=== PATIENT | female | born 1970 | race African-American/Black ===

== ENCOUNTER → 2022-07-08 14:46 | Outpatient (BNVA) | payer MEDICARE, MEDICAID, SELFPAY | PROVIDERS: PCP Internal Medicine; Visit Provider Physician Assistant Surgical | DX: Z13.89 Encounter for screening for other disorder (principal) ==

== ENCOUNTER → 2022-08-03 11:07 | Outpatient (BNVA) | payer OTHER, SELFPAY | PROVIDERS: PCP Internal Medicine; Referring Provider Internal Medicine; Visit Provider Physician Assistant Surgical | DX: Z13.89 Encounter for screening for other disorder (principal) ==

== ENCOUNTER 2025-03-10 09:45 | Outpatient (AMB) | payer OTHER, SELFPAY ==
--- OUTSIDE RECORDS SUMMARY | 2007-08-08 01:00 | XMS_ITS | Encounter Summary ---
Author Organization [facility] Address [address] [place] [address] [place] [address] Phone Care Team Providers Care Auto Bench Mechanic Name Role Phone Unavailable Primary Care Provider Unavailabl e Encounter Details Date Type Department Care Team (Late st Contact Info) Description 08/08/2007 Hospital Encounter [facility] 55 [place] [address] Vilma Lentz MD, PhD 55 [facility] 9[place] [address] [email or web address] Social History Tobacco Use Types Packs/Day Years Used Date Smoking Tobacco: Never Smokeless Tobacco: Never Alcohol Use Standard Drinks/Week Comments Yes 0 (1 standard drink = 0.6 oz pure alcohol) rare; less than 1 drink per month Education Answer Date Recorded Are you interested in more education? Not on veronica e 10/14/2022 Are you concerned about learning? Not on file 10/14/2022 No 10/14/2022 No 10/14/2022 Digital Access Answer Date Recorded No 11/12/2022 No 11/12/2022 Reliable internet access at home? Not on file 11/12/2022 Device with a working camera? Not on file Comments No Sex and Gender Information Value Date Recorded Sex Assigned at Not on file Legal Sex Female 9:59 AM EDT Gender Identity Not on file Sexual Orientation Not on file documented as of this encounter Plan of Treatment Upcoming Encounters Date Type Department Care Team (Late st Contact Info) Description 12/24/2024 Procedure Pass MRI, [facility] [address] [place] [address] 03/17/2025 12:45 PM EDT Appointment MRI, [facility] [address] [place] [address] Bhargav Naik MBBS [address] [place] [address] [email or web address] 03/17/2025 1:30 PM EDT Blood Draw [facility] [address] [facility], 9th Floor, [address] [place] [address] Annamaria Hutchinson FNP [address] [place] [address] [address] [place] [address] [email or web address] 03/17/2025 2:00 PM EDT Office Visit [facility] [address] [facility], 9th Floor, [address] [place] [address] Vilma Lentz MD, PhD [address] [place] [address] 9[place], [place] [address] [email or web address] 04/16/2025 10:00 AM EDT Office Visit [facility] Department of Neurology [address] [place] [address], 8th Floor, [address] [place] [address] Seth Ross MD [address] [place] [address] [place] [address] [email or web address] documented as of this encounter Procedures Procedure Name Priority Date/Time Associated Diagnosis Comments CT HEAD OUTSIDE (NO INTERPRETATION) Routine 08/08/2007 12:00 AM EST documented in this encounter Results * CT Head Outside (No Interpretation) (08/08/2007 12:00 AM EST) Narrative [facility] IMG INTERFACES - 10/16/2015 12:54 PM EDT This study is for PACS storage only and not for interpretation. Procedure Note SYSTEMGENERATED, DOCUMENTATION - 10/16/2015 This study is for PACS storage only and not for interpretation. us Vilma Lentz MD, PhD IMG OU TSIDE IMAGING W/OUT INTERPRETATION Final Result [facility] IMG INTERFACES documented in this encounter Visit Diagnoses Not on filedocumented in this encounter Additional Source Comments The information contained in this document represents components of the legal health record. It is not the complete legal health record.[facility]
--- OUTSIDE RECORDS SUMMARY | 2011-07-18 01:00 | XMS_ITS | Encounter Summary ---
Author Organization [facility] Address [address] [place] [address] Phone Care Team Providers Care Shuttler Car Name Role Phone Unavailable Primary Care Provider Unavailabl e Encounter Details Date Type Department Care Team (Late st Contact Info) Description 07/18/2011 Hospital Encounter [facility] 55 [place] [address] Vilma Lentz MD, PhD [address] [address] [email or web address] Social History Tobacco Use Types Packs/Day Years [...] [address] [place] [address] 03/17/2025 12:45 PM EDT Appointment MRI, [facility] [address] [place] [address] Bhargav Naik MBBS [address] [place] [address] [email or web address] 03/17/2025 1:30 PM EDT Blood Draw [facility] [address] [facility], 9th Floor, [address] [place] [address] Annamaria Hutchinson FNP [address] [place] [address] [address] [place] [address] [email or web address] 03/17/2025 2:00 PM EDT Office Visit [facility] [address] [facility], 9th Floor, [address] [place] [address] Vilma Lentz MD, PhD [address] [place] [address] 9[place], [place] [address] [email or web address] 04/16/2025 10:00 AM EDT Office [place] [facility] Department of Neurology [address] [place] [address], 8th Floor, [address] [place] [address] Seth Ross MD [address] [place] [address] [place] [address] [email or web address] documented as of this encounter Procedures Procedure Name Priority Date/Time Associated Diagnosis Comments XR CHEST OUTSIDE (NO INTERPRETATION) Routine 07/18/2011 12:00 AM EST documented in this encounter Results * XR Chest Outside (No Interpretation) (07/18/2011 12:00 AM EST) Narrative [facility] [place]G INTERFACES - 10/16/2015 12:55 PM EDT This study is for PACS storage only and not for interpretation. Procedure Note SYSTEMGENERATED, DOCUMENTATION - 10/16/2015 This study is for PACS storage only and not for interpretation. us Vilma Lentz MD, PhD IMG OU TSIDE IMAGING W/OUT INTERPRETATION Final Result [facility] documented in this encounter Visit Diagnoses Not on filedocumented in this encounter Additional Source Comments The information contained in this document represents components of the legal health record. It is not the complete legal health record.[facility]
--- OUTSIDE RECORDS SUMMARY | 2012-04-07 | XMS_ITS | Encounter Summary ---
Author Organization [facility] Address [address] [place] [address] [place] [address] Phone Care Team Providers Care Lead Systems Developer Name Role Phone Unavailable Primary Care Provider Unavailabl e Encounter Details Date Type Department Care Team (Late st Contact Info) Description 04/07/2012 Hospital Encounter [facility] 55 [place] [address] Vilma Lentz MD, PhD 55 [facility] 9[place] [address] [email or web address] Social History Tobacco Use Types Packs/Day [...] [address] [place] [address] 03/17/2025 12:45 PM EDT Appointment MRI, [facility] [address] [place] [address] Bhargav Naik MBBS [address] [place] [address] [email or web address] 03/17/2025 1:30 PM EDT Blood Draw [facility] [address] [facility], 9th Floor, [address] [place] [address] Annamaria Hutchinson FNP [address] [place] [address] [address] [place] [address] [email or web address] 03/17/2025 2:00 PM EDT Office Visit [facility] [address] [facility], 9th Floor, [address] [place] [address] Vilma Lentz MD, PhD [address] [place] [address] [place], [place] [address] [email or web address] 04/16/2025 10:00 AM EDT Office Visit [facility] Department of Neurology [address] [place] [address], 8th Floor, [address] [place] [address] Seth Ross MD [address] [place] [address] [place] [address] [email or web address] documented as of this encounter Procedures Procedure Name Priority Date/Time Associated Diagnosis Comments CT CHEST OUTSIDE (NO INTERPRETATION) Routine 04/07/2012 12:00 AM EDT documented in this encounter Results * CT Chest Outside (No Interpretation) (04/07/2012 12:00 AM EDT) Narrative [facility] [place]G INTERFACES - 10/16/2015 12:56 PM EDT This study is for PACS storage only and not for interpretation. Procedure Note SYSTEMGENERATED, DOCUMENTATION - 10/16/2015 This study is for PACS storage only and not for interpretation. us Vilma Lentz MD, PhD IMG OU TSIDE IMAGING W/OUT INTERPRETATION Final Result [facility] documented in this encounter Visit Diagnoses Not on filedocumented in this encounter Additional Source Comments The information contained in this document represents components of the legal health record. It is not the complete legal health record.[facility]
--- OUTSIDE RECORDS SUMMARY | 2013-10-15 | XMS_ITS | Encounter Summary ---
Author Organization [facility] Address [address] [place] [address] [place] [address] Phone Care Team Providers Care Can Labeler Name Role Phone Unavailable Primary Care Provider Unavailabl e Encounter Details Date Type Department Care Team (Late st Contact Info) Description 10/15/2013 Hospital Encounter [facility] 55 [place] [address] Vilma Lentz MD, PhD 55 [facility] 9[place] [address] [email or web address] Social History Tobacco Use Types [...] [address] [place] [address] 03/17/2025 12:45 PM EDT Appointment MRI, [facility] [address] [place] [address] Bhargav Naik MBBS [address] [place] [address] [email or web address] 03/17/2025 1:30 PM EDT Blood Draw [facility] [address] [facility], 9th Floor, [address] [place] [address] Annamaria Hutchinson FNP [address] [place] [address] [address] [place] [address] [email or web address] 03/17/2025 2:00 PM EDT Office Visit [facility] [address] [facility], 9th Floor, [address] [place] [address] Vilma Lentz MD, PhD [address] [place] [address] 9[place] [address] [email or web address] 04/16/2025 10:00 AM EDT Office Visit [facility] Department of Neurology [address] [place] [address], 8th Floor, [address] [place] [address] Seth Ross MD [address] [place] [address] [place] [address] [email or web address] documented as of this encounter Procedures Procedure Name Priority Date/Time Associated Diagnosis Comments XR CHEST OUTSIDE (NO INTERPRETATION) Routine 10/15/2013 12:00 AM EDT documented in this encounter Results * XR Chest Outside (No Interpretation) (10/15/2013 12:00 AM EDT) Narrative [facility] IMG INTERFACES - 10/16/2015 12:57 PM EDT This study is for PACS storage only and not for interpretation. Procedure Note SYSTEMGENERATED, DOCUMENTATION - 10/16/2015 This study is for PACS storage only and not for interpretation. us Vilma Lentz MD, PhD IMG OU TSIDE IMAGING W/OUT INTERPRETATION Final Result [facility] INTER[facility]AC[facility] documented in this encounter Visit Diagnoses Not on filedocumented in this encounter Additional Source Comments The information contained in this document represents components of the legal health record. It is not the complete legal health record.[facility]
--- OUTSIDE RECORDS SUMMARY | 2013-10-23 | XMS_ITS | Encounter Summary ---
Author Organization [facility] Address [address] [place] [address] [place] [address] Phone Care Team Providers Care Roll Cutting Operator Name Role Phone Unavailable Primary Care Provider Unavailabl e Encounter Details Date Type Department Care Team (Late st Contact Info) Description 10/23/2013 Hospital Encounter [facility] 55 [place] [address] Vilma Lentz MD, PhD 55 [facility] 9[place] [address] [email or web address] [place] [place] Social History Tobacco Use Types Packs/Day Years [...] [address] [place] [address] 03/17/2025 12:45 PM EDT Appointment MRI, [facility] General Imaging [address] [place] [address] Bhargav Naik MBBS [address] [place] [address] [email or web address] 03/17/2025 1:30 PM EDT Blood Draw [facility] [address] [facility], 9th Floor, [address] [place] [address] Annamaria Hutchinson FNP [address] [place] [address] [address] [place] [address] [email or web address] 03/17/2025 2:00 PM EDT Office Visit [facility] [address] [facility], 9th Floor, [address] [place] [address] Vilma Lentz MD, PhD [address] [place] [address] 9[address] [place] [address] [email or web address] [place] 04/16/2025 10:00 AM EDT Office Visit [facility] Department of Neurology [address] [place] [address], 8th Floor, [address] [place] [address] Seth Ross MD [address] [place] [address] [place] [address] [email or web address]@[email or web address] documented as of this encounter Procedures Procedure Name Priority Date/Time Associated Diagnosis Comments US UPPER/LOWER EXTREMITY NON-VASCULAR OUTSIDE (NO INTERPRETATION) Routine 10/23/2013 12:00 AM EDT documented in this encounter Results * US Upper/Lower Extremity Non-Vascular Outside (No Interpretation) (10/23/2013 12:00 AM EDT) Narrative [facility] IMG INTERFACES - 10/16/2015 12:57 PM EDT This study is for PACS storage only and not for interpretation. Procedure Note SYSTEMGENERATED, DOCUMENTATION - 10/16/2015 This study is for PACS storage only and not for interpretation. us Vilma Lentz MD, PhD IMG OU TSIDE IMAGING W/OUT INTERPRETATION Final Result [facility] IMG INTERFACES documented in this encounter Visit Diagnoses Not on filedocumented in this encounter Additional Source Comments The information contained in this document represents components of the legal health record. It is not the complete legal health record.[facility]
--- OUTSIDE RECORDS SUMMARY | 2015-08-18 01:00 | XMS_ITS | Encounter Summary ---
Author Organization [facility] Address [address] [place] [address] Phone Care Team Providers Care Salt Manager Name Role Phone Unavailable Primary Care Provider Unavailabl e Encounter Details Date Type Department Care Team (Late st Contact Info) Description 08/18/2015 Hospital Encounter [facility] 55 [place] [address] Vilma Lentz MD, PhD 55 [facility] 9[place] [address] [email or web address] Social History Tobacco Use Types Packs/Day Years [...] [address] [place] [address] 03/17/2025 12:45 PM EDT Appointment MRI, [facility] [address] [place] [address] Bhargav Naik MBBS [address] [place] [address] [email or web address] 03/17/2025 1:30 PM EDT Blood Draw [facility] [address] [facility], 9th Floor, [address] [place] [address] Annamaria Hutchinson FNP [address] [place] [address] [address] [place] [address] [email or web address] 03/17/2025 2:00 PM EDT Office Visit [facility] [address] [facility], 9th Floor, [address] [place] [address] Vilma Lentz MD, PhD [address] [place] [address] [place] [address] [email or web address] 04/16/2025 10:00 AM EDT Office Visit [facility] Department of Neurology [address] [place] [address], 8th Floor, [address] [place] [address] Seth Ross MD [address] [place] [address] [place] [address] [email or web address] documented as of this encounter Procedures Procedure Name Priority Date/Time Associated Diagnosis Comments CT HEAD OUTSIDE (NO INTERPRETATION) Routine 08/18/2015 12:00 AM EST documented in this encounter Results * CT Head Outside (No Interpretation) (08/18/2015 12:00 AM EST) Narrative [facility] IMG INTERFACES - 10/16/2015 12:58 PM EDT This study is for PACS storage only and not for interpretation. Procedure Note SYSTEMGENERATED, DOCUMENTATION - 10/16/2015 This study is for PACS storage only and not for interpretation. us Vilma Lentz MD, PhD IMG OU TSIDE IMAGING W/OUT INTERPRETATION Final Result [facility] IMG INTERFACES documented in this encounter Visit Diagnoses Not on filedocumented in this encounter Additional Source Comments The information contained in this document represents components of the legal health record. It is not the complete legal health record.[facility]
--- OUTSIDE RECORDS SUMMARY | 2015-08-20 01:00 | XMS_ITS | Encounter Summary ---
Author Organization [facility] Address [address] [place] [address] Phone Care Team Providers Care Flume Ride Operator Name Role Phone Unavailable Primary Care Provider Unavailabl e Encounter Details Date Type Department Care Team (Late st Contact Info) Description 08/20/2015 Hospital Encounter [facility] 55 [place] [address] Vilma Lentz MD, PhD 55 [facility] 9[place] [address] [email or web address] Social History Tobacco Use Types [...] [address] [place] [address] 03/17/2025 12:45 PM EDT Appointment MRI, [facility] [address] [place] [address] Bhargav Naik MBBS [address] [place] [address] [email or web address] 03/17/2025 1:30 PM EDT Blood Draw [facility] [address] [facility], 9th Floor, [address] [place] [address] Annamaria Hutchinson FNP [address] [place] [address] [address] [place] [address] [email or web address] 03/17/2025 2:00 PM EDT Office Visit [facility] [address] [facility], 9th Floor, [address] [place] [address] Vilma Lentz MD, PhD [address] [place] [address] [place] [address] [email or web address] 04/16/2025 10:00 AM EDT Office Visit [facility] Department of Neurology [address] [place] [address], 8th Floor, [address] [place] [address] Seth Ross MD [address] [place] [address] [place] [address] [email or web address] documented as of this encounter Procedures Procedure Name Priority Date/Time Associated Diagnosis Comments MRI BRAIN OUTSIDE (NO INTERPRETATION) Routine 08/20/2015 12:00 AM EST documented in this encounter Results * MRI Brain Outside (No Interpretation) (08/20/2015 12:00 AM EST) Narrative [facility] IMG INTERFACES - 10/16/2015 12:59 PM EDT This study is for PACS storage only and not for interpretation. Procedure Note SYSTEMGENERATED, DOCUMENTATION - 10/16/2015 This study is for PACS storage only and not for interpretation. us Vilma Lentz MD, PhD IMG OU TSIDE IMAGING W/OUT INTERPRETATION Final Result [facility]G INTERFACES documented in this encounter Visit Diagnoses Not on filedocumented in this encounter Additional Source Comments The information contained in this document represents components of the legal health record. It is not the complete legal health record.[facility]
--- OUTSIDE RECORDS SUMMARY | 2015-09-03 | XMS_ITS | Encounter Summary ---
Author Organization [facility] Address [address] [place] [address] Phone Care Team Providers Care Zinc Etcher Name Role Phone Unavailable Primary Care Provider Unavailabl e Encounter Details Date Type Department Care Team (Late st Contact Info) Description 09/03/2015 Hospital Encounter [facility] 55 [place] [address] Vilma Lentz MD, PhD 55 [facility] 9[place], [place] [address] [email or web address] Social History Tobacco Use Types [...] [address] [place] [address] 03/17/2025 12:45 PM EDT Appointment MRI, [facility] [address] [place] [address] Bhargav Naik MBBS [address] [place] [address] [email or web address] 03/17/2025 1:30 PM EDT Blood Draw [facility] 32 [facility], 9th Floor, [address] [place] [address] Annamaria Hutchinson FNP [address] [place] [address] [address] [place] [address] [email or web address] 03/17/2025 2:00 PM EDT Office Visit [facility] [place] [facility] 32 [facility], 9th Floor, [address] [place] [address] Vilma Lentz MD, PhD [address] [place] [address] 9[place], [place] [address] [email or web address] 04/16/2025 10:00 AM EDT Office Visit [facility] Department of Neurology [address] [place] [address], 8th Floor, [address] [place] [address] Seth Ross MD [address] [place] [address] [place] [address] [email or web address] documented as of this encounter Procedures Procedure Name Priority Date/Time Associated Diagnosis Comments MRI BRAIN OUTSIDE (NO INTERPRETATION) Routine 09/03/2015 12:00 AM EDT documented in this encounter Results * MRI Brain Outside (No Interpretation) (09/03/2015 12:00 AM EDT) Narrative [facility]G INTERFACES - 10/16/2015 12:59 PM EDT This study is for PACS storage only and not for interpretation. Procedure Note SYSTEMGENERATED, DOCUMENTATION - 10/16/2015 This study is for PACS storage only and not for interpretation. us Vilma Lentz MD, PhD IMG OU TSIDE IMAGING W/OUT INTERPRETATION Final Result [facility]G INTERFACES documented in this encounter Visit Diagnoses Not on filedocumented in this encounter Additional Source Comments The information contained in this document represents components of the legal health record. It is not the complete legal health record.[facility]
--- OUTSIDE RECORDS SUMMARY | 2015-12-05 | XMS_ITS | Encounter Summary ---
Author Organization [facility] Address [address] [place] [address] [place] [address] Phone Care Team Providers Care Oxyacetylene Welder Name Role Phone Herlinda Bha Primary Care Provider [phone] Encounter Details Date Type Department Care Team (Late st Contact Info) Description 12/05/2015 Hospital Encounter [facility] General Imaging [address] [place] [address] Nery Renteria MD [address] [place] [address] Social History Tobacco Use Types Packs/Day Years [...] on file documented as of this encounter Functional Status * Patient is deaf or has serious difficulty with hearing Answer Date of Assessment Author No 11/26/2015 11:15 AM Jaz Arteaga CNP * Patient is blind or has serious difficulty with seeing, even when wearing glasses Answer Date of Assessment Author No 11/26/2015 11:15 AM Jaz Arteaga CNP * Patient has serious difficulty walking or climbing stairs (5yr old or older) Answer Date of Assessment Author No 11/26/2015 11:15 AM Jaz Arteaga CNP * Patient has serious difficulty dressing or bathing (5yr old or older) Answer Date of Assessment Author No 11/26/2015 11:15 AM Jaz Arteaga CNP * Patient has serious difficulty doing errands alone such as visiting a doctor???s office or shopping, due to physical, mental, or emotional condition (15 years old or older) Answer Date of Assessment Author No 11/26/2015 11:15 AM Jaz Arteaga CNP documented as of this encounter Mental Status * Patient has serious difficulty concentrating, remembering, or making decisions due to physical, mental, or emotional condition Answer Entry Date Author No 11/26/2015 11:15 AM Jaz Arteaga CNP documented in this encounter Plan of Treatment Upcoming Encounters Date Type Department Care Team (Late st Contact Info) Description 12/24/2024 Procedure Pass [facility], [facility] [address] [place] [address] 03/17/2025 12:45 PM EDT Appointment MRI, [facility] General Imaging [address] [place] [address] Bhargav Naik MBBS [address] [place] [address] [email or web address] 03/17/2025 1:30 PM EDT Blood Draw [facility] [address] [facility], 9th Floor, [address] [place] [address] Annamaria Hutchinson FNP 55 [facility] [address] [place] [address] 03/17/2025 2:00 PM EDT Office Visit [facility] [address] [facility], 9th Floor, [address] [place] [address] Vilma Lentz MD, PhD 55 [facility] [address] [place] [address] [email or web address] 04/16/2025 10:00 AM EDT Office Visit [facility] Department of Neurology [address] [facility], 8th Floor, [address] [place] [address] Seth [place] MD 55 [facility] [place] [address] [email or web address] documented as of this encounter Procedures Procedure Name Priority Date/Time Associated Diagnosis Comments CT HEAD OUTSIDE WITH INTERPRETATION OR CONSULT Routine 12/05/2015 12:00 AM EDT documented in this encounter Results * CT Head Outside With Interpretation or Consult (12/05/2015 12:00 AM EDT) 12/05/2015 10:5 4 PM EDT Impressions [facility] - 12/06/2015 10:12 AM EDT IMPRESSION: Expected evolution of postoperative findings related to left frontal craniotomy and resection of left frontal lobe mass lesion. No evidence of acute intracranial hemorrhage, increased mass effect or territorial infarction. Preliminary findings were discussed with Dr. Juan Jose Collado on 12/05/2015 at 11:08PM This report is limited to the body part and modality requested, regardless of which images were uploaded. If additional reports are required, please contact the appropriate division of the Radiology Department. Narrative [facility] - 12/06/2015 10:12 AM EDT Interpretation of outside CT scan performed at [facility] TECHNIQUE: Head CT WITHOUT intravenous contrast. COMPARISON: Outside brain MR 09/03/2015; multiple prior head CT examinations including most recent on 12/02/2015 FINDINGS: There are expected postoperative findings related to left frontal craniotomy for resection of left frontal mass lesion seen on the brain MRI on 09/03/2015. There is persistent focal hypodensity within the resection cavity likely representing fluid. Evaluation of the brain parenchyma is limited by CT. There has been no significant interval change in the appearance of scattered foci of hyperdensity along the margins of the resection cavity, which may represent blood products. No evidence of acute intracranial hemorrhage, increased mass effect or midline shift. The ventricles, sulci and cisterns are stable in appearance without evidence of progressive hydrocephalus. The brain parenchyma demonstrates no significant abnormality. The bones and extracranial soft tissues demonstrate expected postoperative findings. There has been no significant interval change in the size of the left frontal subgaleal collection. There is a persistent subcutaneous air overlying the medial aspect of the craniotomy site, slightly decreased when compared to 12/02/2015. Procedure Note Carlo Macias MD, PhD - 12/06/[address] scan performed at [facility] TECHNIQUE: Head CT WITHOUT intravenous contrast. COMPARISON: Outside brain MR 09/03/2015; multiple prior head CTexaminations including most recent on 12/02/2015 FINDINGS: There are expected postoperative findings related to left frontalcraniotomy for resection of left frontal mass lesion seen on the brain MRI on 09/03/2015.There is persistent focal hypodensity within the resection cavity likelyrepresenting fluid. Evaluation of the brain parenchyma is limited by CT. There has beenno significant interval change in the appearance of scattered foci ofhyperdensity along the margins of the resection cavity, which may represent bloodproducts. No evidence of acute intracranial hemorrhage, increased mass effect ormidline shift. The ventricles, sulci and cisterns are stable in appearance withoutevidence of progressive hydrocephalus. The brain parenchyma demonstrates no significant abnormality. The bones and extracranial soft tissues demonstrate expectedpostoperative findings. There has been no significant interval change in the size of theleft frontal subgaleal collection. There is a persistent subcutaneous airoverlying the medial aspect of the craniotomy site, slightly decreased when comparedto 12/02/2015. IMPRESSION: IMPRESSION: Expected evolution of postoperative findings related to left frontalcraniotomy and resection of left frontal lobe mass lesion. No evidence of acute intracranial hemorrhage, increased mass effect or territorial infarction. Preliminary findings were discussed with Dr. Juan Jose Collado on 12/05/2015 at11:08PM This report is limited to the body part and modality requested, regardlessof which images were uploaded. If additional reports are required, pleasecontact the appropriate division of the Radiology Department. us Nery Renteria MD IMG OUTSIDE IMAGING W/ INTERPR ETATION Final Result [facility] [address] [place] [address] documented in this encounter Visit Diagnoses Not on filedocumented in this encounter Care Teams Oxyacetylene Welder Relationship Specialty Start Date End Date Herlinda Bah DO [address] [place] [address] PCP - General 10/16/15 12/18/16 documented as of this encounter Additional Source Comments The information contained in this document represents components of the legal health record. It is not the complete legal health record.[facility]
--- OUTSIDE RECORDS SUMMARY | 2016-02-10 | XMS_ITS | Encounter Summary ---
Author Organization [facility] Address [address] [place] [address] [place] [address] Phone Care Team Providers Care Triage Rn Name Role Phone NiurkaHerlinda Primary Care Provider [phone] Encounter Details Date Type Department Care Team (Late st Contact Info) Description 02/10/2016 Hospital Encounter [facility] [address] [place] [address] Fani Llamas MD 55 [place] [address] [email or web address]. u Social History Tobacco Use Types Packs/Day Years [...] Contact Info) Description 12/24/2024 Procedure Pass MRI, [facility] General Imaging [address] [place] [address] 03/17/2025 12:45 PM EDT Appointment MRI, [facility] General Imaging [address] [place] [address] Bhargav Naik MBBS [address] [place] [address] [email or web address]. [facility] 03/17/2025 1:30 PM EDT Blood Draw [facility] 32 [facility], 9th Floor, [address] [place] [address] Annamaria Hutchinson FNP 55 [facility] [address] [place] [address] [email or web address] 03/17/2025 2:00 PM EDT Office Visit [facility] 32 [facility], 9th Floor, [address] [place] [address] Vilma Letnz MD, PhD 55 [facility] [address] [place] [address] [email or web address] 04/16/2025 10:00 AM EDT Office Visit [facility] [place] of [facility]rology 55 [facility], 8th Floor, [address] [place] [address] Seth [place] MD [address] [place] [address] [place] [address] [email or web address] documented as of this encounter Procedures Procedure Name Priority Date/Time Associated Diagnosis Comments MRI BRAIN OUTSIDE (NO INTERPRETATION) Routine 02/10/2016 12:00 AM EDT documented in this encounter Results * MRI Brain Outside (No Interpretation) (02/10/2016 12:00 AM EDT) Narrative [facility] INTER[facility]AC[facility] - 02/12/2016 8:36 AM EDT This study is for PACS storage only and not for interpretation. Procedure Note SYSTEMGENERATED, DOCUMENTATION - 02/12/2016 This study is for PACS storage only and not for interpretation. us Fani Llamas MD IMG OUTSIDE IMAGING W/OUT INTERP RETATION Final Result [facility] documented in this encounter Visit Diagnoses Not on filedocumented in this encounter Care Teams Triage Rn Relationship Specialty Start Date End Date Herlinda Bah DO [address] [place] [address] PCP - General 10/16/15 12/18/16 documented as of this encounter Additional Source Comments The information contained in this document represents components of the legal health record. It is not the complete legal health record.[facility]
--- OUTSIDE RECORDS SUMMARY | 2023-12-14 07:15 | XMS_ITS ---
Author Organization [facility] [address] Address [address] [place] [address] Care Team Providers Care Pad Machine Feeder Name Role Phone AL DURHAM Unavailable ROGE ZHOU Unavailable [phone] Encounters Encounter Location Date Provider Diagnosis [facility] [address] [place] [address] 12/14/2023 ROGE ZHOU Plan Of Treatment No Information Progress Notes * Mariella AZAROB:[birth year] (55 yo F)Acc No.[id number]:12/14/2023 Patient: Annalise [place] Provider: Geovanna PHILLIPS PA-C :1970 A ge:53 Y S ex:Female Date:12/14/2023 Address:[address] [place], [place] [id number] Subjective: * Chief Complaints: * * Medical History: Objective: * Vitals: Assessment: Plan: * Treatment: * Images: Billing Information: * Visit Code: * Procedure Codes: * Electronic signature of DOUGLAS ZHOU PA-C on 03/10/2025 at 11:46 AM EDT Sign off status: Pending * Provider: Geovanna PHILLIPS PA-C Date: 0 12/14/2023 Generated for Tammi saucedo/Roopa/José Luis on: 0 03/10/2025 11:46 AM EDT
--- OUTSIDE RECORDS SUMMARY | 2024-02-28 05:15 | XMS_ITS ---
Author Organization [facility] [address] Address [address] [place] [address] Care Team Providers Care Riverboat Master Name Role Phone AL DURHAM Unavailable ROGE ZHOU Unavailable [phone] Encounters Encounter Location Date Provider Diagnosis [facility] [address] [place] [address] 02/28/2024 ROGE ZHOU Plan Of Treatment No Information Progress Notes * Mariella AZAROB:[birth year] (55 yo F)Acc No.[id number]:02/28/2024 Patient: Annalise [place] Provider: Geovanna PHILLIPS PA-C :1970 A ge:54 Y S ex:Female Date:02/28/2024 Address:[address] [place], [place] [id number] Subjective: * Chief Complaints: * * Medical History: Objective: * Vitals: Assessment: Plan: * Treatment: * Procedure Codes: 9 9199 NO SHOW OFFICE VISIT * Images: Billing Information: * Visit Code: * Procedure Codes: 68794 NO SHOW OFFICE VISIT. * Electronic signature of DOUGLAS ZHOU PA-C on 03/10/2025 at 11:47 AM EDT Sign off status: Pending * Provider: Geovanna PHILLIPS PA-C Date: 0 02/28/2024 Generated for Tammi saucedo/Roopa/eTransmjad on: 0 03/10/2025 11:47 AM EDT
--- NOTE | 2025-03-10 09:59 | MHC.AMNUTRGE ---
VS Expanded 03/10/25 10:00 03/10/25 10:04 Height 5 ft 4 in 5 ft 4 in Weight 241 lb 10.026 oz 241 lb BMI 41.5 41.4 Intake Visit Reasons: Obesity Allergies levofloxacin Adverse Reaction (Unknown, Verified 03/10/25 10:58) Rash Medication List - Last Reconciled 03/10/[address], ALMA ROSAN acetaminophen (Tylenol) 650 mg PO Q6H PRN atorvastatin 40 mg PO calcium carbonate-vitamin D3 500 mg-10 mcg (400 unit) (Calcium 500 With D) 2 tabs PO cholecalciferol (vitamin D3) 1,250 mcg PO QWEEK divalproex ER ea PO hydroxyzine HCl 25 mg PO hydroxyzine HCl 75 mg PO BEDTIME levetiracetam (Keppra) 1,500 mg PO BID metformin 1,000 mg PO BID nortriptyline 25 mg PO riboflavin (vitamin B2) (Vitamin B-2) 100 mg PO BID [VITAMIN B PO] Nutrition Presentation Details: Pt presents for MNT for obesity Pt reports having increased appetite in AM Challenges recognizing hunger vs appetite Has assistance with meal preparations via [employer] services Pt has hx of frontal lobe resection in 2016 related to brain tumor food frequency fish: 1/month fruits: 0-1/d dairy: 3 /wk vegetables: daily fried foods/ 4 x/wk walking : 15 min twice/d Pt reports increased appetite in the evening and wanting to learn about balancing meals WSI-Rkoiiqf-Xi.Jeor Equation Height: 5 ft 4 in Weight: 241 lb Resting Metabolic Rate: 1676.46 Calculated Activity Level: Sedentary Calories Needed to Maintain Weight: 2010. Diagnosis Nutrition problem #1: excessive energy intake As related to (etiology) #1: diagnosis As evidenced by (sign/symptom) #1: knowledge deficit of diet PFSH Medical History (Updated 03/10/25 @ 10:[address], LDN) Speech apraxia Oligodendroglioma Surgical History Hx of hernia repair Hx of brain surgery Hx of cholecystectomy Family History Mother Thyroid disease Father No problems noted. Son ADHD Social History Alcohol intake: never Patient Tobacco Use Status: Never used Tobacco Assessment & Plan Assessment & Plan (1) Morbid obesity with BMI of 40.0-44.9, adult: Code(s): E66.01 - Morbid (severe) obesity due to excess calories; Z68.41 - Body mass index [BMI] 40.0-44.9, adult Category: Medical Plan: current wt: 109 kg ( 03/13 ) est kcal needs as per MSJ: 2000 est protein needs as per 1 g/kg BW: 110 est fluid needs as per 30 ml/kg BW: 3300 Recommended fiber > 12 g /day and gradually increase up to 25-28 g /day or as tolerated Nutrition topics discussed : Reviewed (R), Pt verbalized understanding (V) , not applicable (N/A) R, : Healthy Plate Method Concept: R, : Carbohydrates: food sources of carbohydrates, relationship of carbohydrates to blood glucose, fatty liver GI health. Recommended total amount of carbohydrates per meals and snack. Differences between simple carbohydrates and complex carbohydrates R, : Lean protein foods including vegan , vegetarian sources of protein. Benefits of protein (including but not limited to healing, nutritional value , benefits in weight loss, glucose control R, V, N/A: Fats : Source of fats, benefits of fats. Difference between saturated and unsaturated fats. Saturated fats and its contribution to inflammation R, V, N/A: Fiber: food sources and role of fiber in the diet (including but not limited to its role as a prebiotic, benefits in constipation, role in IBS , role in glucose control and cholesterol level) R, : Hydration: role of hydration and prevention of dehydration or over hydration. Foods and water content. R, V, N/A: Vitamins and Minerals in foods and supplements R, : Interpreting food labels, including serving size, macronutrients, vitamins, minerals, allergens, ingredient list , % daily value (carbs/protein/calories discussed ) Patient Instructions: Work on having 3 meals per day pattern and 1-2 snacks Work on having scheduled meals- see meal pattern printed (consisting of less than 60 g carb per meal and 3-4 oz protein ) Have a yogurt as snack (less than 150 calories) Coding Level of Care Code Nutr Indiv Intake (84532) Diagnoses Morbid obesity with BMI of 40.0-44.9, adult E66.01; Z68.41 Time Spent (min) 30
[2025-03-10 10:00] VITALS: BMI 41.5
[2025-03-10 10:04] VITALS: BMI 41.4
--- OUTSIDE RECORDS SUMMARY | 2025-03-10 11:43 | XMS_ITS | Encounter Summary ---
Author Organization [facility] Address [address] [facility] [place] [address] Phone Care Team Providers Care Homeworker Name Role Phone Vilma Lentz MD, PhD Unavailable Riya Jay RN Unavailable [phone] Fani Llamas MD Unavailable Carmen Soni MD Primary Care Provider [phone] Encounter Details Date Type Department Care Team (Late st Contact Info) Description 12/12/2023 Procedure Pass MRI, [facility] [address] [place] [address] Social History Tobacco Use Types Packs/Day Years [...] of Assessment Author No 11/26/2015 11:15 AM EDT Jaz Avelar CNP * Patient is blind or has serious difficulty with seeing, even when wearing glasses Answer Date of Assessment Author No 11/26/2015 11:15 AM EDT Jaz Avelar CNP * Patient has serious difficulty walking or climbing stairs (5yr old or older) Answer Date of Assessment Author No 11/26/2015 11:15 AM FRIDAT Jaz Avelar CNP * Patient has serious difficulty dressing [...] [address] [place] [address] 03/17/2025 12:45 PM EDT Appointment [facility], [facility] [address] [place] [address] Bhargav Naik MBBS [address] [place] [address] [email or web address] 03/17/2025 1:30 PM EDT Blood Draw [facility] [address] [place] [address], 9th Floor, [address] [place] [address] Annamaria Hutchinson, JOHN [address] [place] [address] [address] [place] [address] [email or web address] 03/17/2025 2:00 PM EDT Office Visit [facility] [address] [facility], 9th Floor, [address] [place] [address] Vilma Lentz MD, PhD [address] [place] [address] [address] [place] [address] [email or web address] 04/16/2025 10:00 AM EDT Office [facility] Department of Neurology [address] [place] [address], 8th Floor, [address] [place] [address] Seth [place] MD [address] [place] [address] [place] [address] [email or web address] documented as of this encounter Visit Diagnoses Not on filedocumented in this encounter Care Teams Homeworker Relationship Specialty Start Date End Date Carmen Soni MD [address] [place] [address] PCP - General Internal Medicine 05/08/17 Vilma Lentz MD, PhD [address] [place] [address] [address] [place] [address] [email or web address] Primary Oncologist Neurology 04/07/16 Riya Jay, RAVI [address] [place] [address] [email or web address] Primary Infusion Nurse 04/07/16 Fani Llamas MD [address] [place] [address] [email or web address] Radiation Oncology 04/10/16 documented as of this encounter Additional Source Comments The information contained in this document represents components of the legal health record. It is not the complete legal health record.[facility]
--- OUTSIDE RECORDS SUMMARY | 2025-03-10 11:43 | XMS_ITS | Encounter Summary ---
Author Organization [facility] Address [address] [place] [address] Phone Care Team Providers Care Chiropractor Sole Practitioner Name Role Phone Niurka Herlinda MCMAHAN Primary Care Provider Vilma Lentz MD, PhD Unavailable Riya Jay RN Unavailable [phone]- [phone] Fani Llamas MD Unavailable Carmen Soni MD Primary Care Provider [phone] Carmen Soni MD Primary Care Provider [phone] Encounter Details Date Type Department Care Team (Late st Contact Info) Description 05/10/2016 Procedure Pass [facility] - MRI [address] [facility], 6th [place] [address] Social History Tobacco Use Types Packs/Day Years Used Date Smoking Tobacco: Never Smokeless Tobacco: Never Alcohol Use Standard Drinks/Week Comments Yes 0 (1 standard drink = 0.6 oz pure alcohol) rare; less than 1 drink per month Comments No Sex and Gender Information Value [...] Avelar CNP * Patient has serious difficulty doing [...] [address] [place] [address] 03/17/2025 12:45 PM EDT Appointment MRI, [facility] Imaging [address] [place] [address] Bhargav Naik MBBS [address] [place] [address] [email or web address] 03/17/2025 1:30 PM EDT Blood Draw [facility] Center for Neuro Oncology [address] [facility], 9th Floor, [address] [place] [address] Annamaria Hutchinson FNP [address] [facility] [address] [place], [place] 03/17/2025 2:00 PM EDT Office Visit [facility] Neuro Oncology [address] [facility], 9th Floor, [address] [place] [address] Vilma Lentz MD, PhD 55 [facility] [address] [place] [address] [email or web address] 04/16/2025 10:00 AM EDT Office Visit [facility] Department of Neurology [address] [facility], 8th Floor, [address] [place] [address] Seth [place] MD [address] [facility] [place] [address] [email or web address] documented as of this encounter Visit Diagnoses Not on filedocumented in this encounter Care Teams Chiropractor Sole Practitioner Relationship Specialty Start Date End Date Herlinda Bah DO 11 [place] [address] PCP - General 10/16/15 12/18/16 Carmen Soni MD [address] [place] [address] PCP - General Internal Medicine 12/19/16 05/07/17 Carmen Soni MD [address] [place] [address] PCP - General Internal Medicine 05/08/17 Vilma Lentz MD, PhD [address] [place] [address] [address] [place] [address] [email or web address] Primary Oncologist Neurology 04/07/16 Riya Jay RN 55 [place] [address] [email or web address] [email or web address] Primary Infusion Nurse 04/07/16 Fani Llamas MD [address] [place] [address] [email or web address] [email or web address] Radiation Oncology 04/10/16 documented as of this encounter Additional Source Comments The information contained in this document represents components of the legal health record. It is not the complete legal health record.[facility]
--- OUTSIDE RECORDS SUMMARY | 2025-03-10 11:43 | XMS_ITS | Encounter Summary ---
Author Organization [facility] Address [address] [place] [address] Phone Care Team Providers Care Coverer Name Role Phone NiurkaHerlinda Primary Care Provider [phone] Vilma Lentz MD, PhD Unavailable Riya Jay RN Unavailable +- [phone] Fani Llamas MD Unavailable Carmen Soni MD Primary Care Provider Carmen Soni MD Primary Care Provider [phone] Encounter Details Date Type Department Care Team (Late st Contact Info) Description 05/06/2016 Procedure Pass [facility] 2 [address] [facility], 2nd [place] [address] Social History Tobacco Use Types Packs/Day Years [...] Author No 11/26/2015 11:15 AM EDT Jaz Avelra CNP * Patient is blind or has [...] [address] [place] [address] 03/17/2025 12:45 PM EDT Appointment MRI, [facility] General Imaging [address] [place] [address] Bhargav Naik MBBS [address] [place] [address] [email or web address]. [facility] 03/17/2025 1:30 PM EDT Blood Draw [facility] 32 [facility], 9th Floor, [address] [place], [place] [phone] Annamaria Hutchinson FNP 55 [facility] [address] [place], [place] 03/17/2025 2:00 PM EDT Office Visit [facility] 32 [facility], 9th Floor, [address] [place] [address] Vilma Lentz MD, PhD [address] [place] [address] [address] [place] [address] [email or web address] 04/16/2025 10:00 AM EDT Office Visit [facility] Department of Neurology 55 [facility], 8th Floor, [address] [place] [address] Seth Ross MD [address] [place] [address] [email or web address] documented as of this encounter Visit Diagnoses Not on filedocumented in this encounter Care Teams Coverer Relationship Specialty Start Date End Date Herlinda Bah DO 11 [place] [address] PCP - General 10/16/15 12/18/16 Carmen Soni MD [address] [place] [address] PCP - General Internal Medicine 12/19/16 05/07/17 Carmen Soni MD [address] [place] [address] PCP - General Internal Medicine 05/08/17 Vilma Lentz MD, PhD [address] [place] [address] [address] [place] [address] [email or web address] Primary Oncologist Neurology 04/07/16 Riya Jay RN [address] [place] [address] [email or web address] Primary Infusion Nurse 04/07/16 Fani Llamas MD [address] [place] [address] CHARLIE@[email or web address] Radiation Oncology 04/10/16 documented as of this encounter Additional Source Comments The information contained in this document represents components of the legal health record. It is not the complete legal health record.[facility]
--- OUTSIDE RECORDS SUMMARY | 2025-03-10 11:44 | XMS_ITS | Encounter Summary ---
Author Organization [facility] Address [address] [place] [address] [address] [place] [address] Phone Care Team Providers Care Brain Wave Technician Name Role Phone Vilma Lentz MD, PhD Unavailable Riya Jay RN Unavailable [phone] Fani Llamas MD Unavailable Carmen Soni MD Primary Care Provider Encounter Details Date Type Department Care Team (Late st Contact Info) Description 02/21/2025 Ancillary Orders [facility] Oncology 32 [facility], 9th Floor, [address] [place] [address] Vilma Lentz MD, PhD 55 [facility] [address] [place] [address] [email or web address] includes [facility] Oligodendroglioma Social History Tobacco Use Types Packs/Day Years [...] [address] [place] [address] 03/17/2025 12:45 PM EDT Appointment MRI, [facility] [address] [place] [address] Bhargav Naik MBBS [address] [place] [address] [email or web address] [place] 03/17/2025 1:30 PM EDT Blood Draw [facility] 32 [facility], 9th Floor, [address] [place] [address] Annamaria Hutchinson FNP [address] [place] [address] [address] [place], [place] [email or web address] 03/17/2025 2:00 PM EDT Office Visit [facility] 32 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 [place] Primary Oncologist Neurology 04/07/16 Riya Jay RN 55 [place] [address] [email or web address] Primary Infusion Nurse 04/07/16 Fani Llamas MD [address] [place] [address] [email or web address] Radiation Oncology 04/10/16 documented as of this encounter Additional Source Comments The information contained in this document represents components of the legal health record. It is not the complete legal health record.[facility]
--- OUTSIDE RECORDS SUMMARY | 2025-03-10 11:45 | XMS_ITS | Encounter Summary ---
Author Organization [facility] Address [address] [place] [address] [address] [place] [address] Phone Care Team Providers Care Laborer Pullet Farm Name Role Phone Vilma Lentz MD, PhD Unavailable Riya Jay RN Unavailable [phone]- [phone] Fani Llamas MD Unavailable Carmen Soni MD Primary Care Provider [phone] Encounter Details Date Type Department Care Team (Late st Contact Info) Description 02/24/2025 Orders Only [facility] [address] [place] [address], 9th Floor, [address] [place] [address] Provider, MD Lauren [address] [place] [address] Social History Tobacco Use Types Packs/Day Years [...] [address] [place] [address] 03/17/2025 12:45 PM EDT Appointment MRI, [facility] [address] [place] [address] Bhargav Naik MBBS [address] [place] [address] [email or web address] 03/17/2025 1:30 PM EDT Blood Draw [facility] 32 [facility], 9th Floor, [address] [place] [address] Annamaria Hutchinson FNP 55 [facility] [address] [place] [address] [email or web address] 03/17/2025 2:00 PM EDT Office Visit [facility] 32 [facility], 9th Floor, [address] [place] [address] Vilma Lentz MD, PhD [address] [place] [address] [address] [place] [address] [email or web address] 04/16/2025 10:00 AM EDT Office Visit [facility] Department of Neurology [address] [place] [address], 8th Floor, [address] [place] [address] Seth Ross MD [address] [place] [address] [place] [address] [email or web address] documented as of this encounter Procedures Procedure Name Priority Date/Time Associated Diagnosis Comments OUTSIDE LAB Routine 02/18/2025 12:00 AM EDT documented in this encounter Results * Outside Lab (02/18/2025 12:00 AM EDT) us Historical Provider LAB BLOOD ORDERABLES Talia l Result documented in this encounter Visit Diagnoses Not on filedocumented in this encounter Care Teams Laborer Pullet Farm Relationship Specialty Start Date End Date Carmen Soni MD [address] [place] [address] PCP - General Internal Medicine 05/08/17 Vilma Lentz MD, PhD [address] [place] [address] [address] [place] [address] [email or web address] Primary Oncologist Neurology 04/07/16 Riya Jay RN [address] [place] [address] [email or web address] Primary Infusion Nurse 04/07/16 Fani Llamas MD [address] [place] [address] [email or web address] Radiation Oncology 04/10/16 documented as of this encounter Additional Source Comments The information contained in this document represents components of the legal health record. It is not the complete legal health record.[facility]
--- OUTSIDE RECORDS SUMMARY | 2025-03-10 11:46 | XMS_ITS | Encounter Summary ---
Author Organization [facility] Address [address] [place] [address] [place] [address] Phone Care Team Providers Care Talent Director Name Role Phone Vilma Lentz MD, PhD Unavailable Riya Jay RN Unavailable + [phone] Fani Llamas MD Unavailable Carmen Soni MD Primary Care Provider [phone] Encounter Details Date Type Department Care Team (Late st Contact Info) Description 07/23/2018 Procedure Pass [facility] - MRI 32 [facility], 6th [place] [address] Social History Tobacco Use Types Packs/Day Years [...] Author No 11/26/2015 11:15 AM EDT Jaz Avelar, PROFESSOR OF ENGINEERING * Patient is blind or has serious [...] 11/26/2015 11:15 AM EDT Jaz Avelar CNP documented as of this encounter Mental Status * Patient has serious difficulty concentrating, remembering, or making decisions due to physical, mental, or emotional condition Answer Entry Date Author No 11/26/2015 11:15 AM FRIDAT Jaz Avelar CNP documented in this encounter Plan of Treatment Upcoming Encounters Date Type Department Care Team (Late st Contact Info) Description 12/24/2024 Procedure Pass MRI, [facility] General Imaging [address] [place] [address] 03/17/2025 12:45 PM EDT Appointment MRI, [facility] General Imaging [address] [place] [address] Bhargav Naik, SALEEM 75 [place] [address] [email or web address] 03/17/2025 1:30 PM EDT Blood Draw [facility] 32 [facility], 9th Floor, [address] [place] [address] Annamaria Hutchinson FNP 55 [facility] [address] [place] [address] [email or web address] 03/17/2025 2:00 PM EDT Office Visit [facility] [address] [place] [address], 9th Floor, [address] [place] [address] Vilma Lentz MD, PhD [address] [place] [address] 9[address] [place] [address] [email or web address] 04/16/2025 10:00 AM EDT Office Visit [facility] Department of Neurology 55 [facility], 8th Floor, [address] [place] [address] Seth Ross MD [address] [place] [address] [place] [address] [email or web address] documented as of this encounter Visit Diagnoses Not on filedocumented in this encounter Care Teams Talent Director Relationship Specialty Start Date End Date Carmen Soni MD [address] [place] [address] PCP - General Internal Medicine 05/08/17 Vilma Lentz MD, PhD [address] [place] [address] 9[place] [address] [email or web address] Primary Oncologist Neurology 04/07/16 Riya Jay, RAVI [address] [place] [address] [email or web address] Primary Infusion Nurse 04/07/16 Fani Llamas MD [address] [place] [address] [email or web address] Radiation Oncology 04/10/16 documented as of this encounter Additional Source Comments The information contained in this document represents components of the legal health record. It is not the complete legal health record.[facility]
--- OUTSIDE RECORDS SUMMARY | 2025-03-10 11:46 | XMS_ITS | Encounter Summary ---
Author Organization [facility] Address [address] [place] [address] [address] [place] [address] Phone Care Team Providers Care Pianos And Organs Salesperson Name Role Phone Vilma Lentz MD, PhD Unavailable Riya Jay RN Unavailable [phone] Fani Llamas MD Unavailable Carmen Soni MD Primary Care Provider [phone] Encounter Details Date Type Department Care Team (Late st Contact Info) Description 02/14/2025 Ancillary Orders [facility] 32 [facility], 9th Floor, [address] [place] [address] Vilma Lentz MD, PhD 55 [facility] [address] [place] [address] [email or web address] Oligodendroglioma Social History Tobacco Use Types Packs/Day [...] [address] [place] [address] 03/17/2025 12:45 PM EDT Appointment [facility], [facility] [address] [place] [address] Bhargav Naik MBBS [address] [place] [address] [email or web address] 03/17/2025 1:30 PM EDT Blood Draw [facility] 32 [facility], 9th Floor, [address] [place] [address] Annamaria Hutchinson FNP [address] [place] [address] [address] [place], [place] [email or web address] 03/17/2025 2:00 PM EDT Office Visit [facility] 32 [facility], 9th Floor, [address] [place] [address] Vilma Lentz MD, PhD [address] [place] [address] 9[place], [place] [address] [email or web address] 04/16/2025 10:00 AM EDT Office Visit [facility] Department of Neurology [address] [place] [address], 8th Floor, [address] [place] [address] Seth Ross MD [address] [place] [address] [place] [address] [email or web address] documented as of this encounter 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, unspecified site documented in this encounter Care Teams Pianos And Organs Salesperson Relationship Specialty Start Date End Date Carmen Soni MD [address] [place] [address] PCP - General Internal Medicine 05/08/17 Vilma Lentz MD, PhD [address] [place] [address] [email or web address] Primary Oncologist Neurology 04/07/16 Riya Jay RN 55 [place] [address] [email or web address] Primary Infusion Nurse 04/07/16 Fani Llamas MD [address] [place] [address] [email or web address] Radiation Oncology 04/10/16 documented as of this encounter Additional Source Comments The information contained in this document represents components of the legal health record. It is not the complete legal health record.[facility]
--- OUTSIDE RECORDS SUMMARY | 2025-03-10 11:47 | XMS_ITS | Encounter Summary ---
Author Organization [facility] Address [address] [place] [address] [address] [place] [address] Phone Care Team Providers Care Dealer Accounts Investigator Name Role Phone Vilma Lentz MD, PhD Unavailable Riya Jay RN Unavailable [phone] Fani Llamas MD Unavailable Carmen Soni MD Primary Care Provider [phone] Encounter Details Date Type Department Care Team (Late st Contact Info) Description 09/24/2018 Ancillary Orders [facility] for Neuro Oncology 32 [facility], 9th Floor, [address] [place] [address] Vilma Lentz MD, PhD 55 [facility] [address] [place] [address] [email or web address] Convulsions, unspecified convulsion type Social History Tobacco Use Types Packs/Day Years [...] Contact Info) Description 12/24/2024 Procedure Pass MRI, [facility] General Imaging [address] [place] [address] 03/17/2025 12:45 PM EDT Appointment MRI, [facility] General Imaging [address] [place] [address] Bhargav Naik MBBS 75 [place] [address] [email or web address] 03/17/2025 1:30 PM EDT Blood Draw [facility] 32 [facility], 9th Floor, [address] [place] [address] Annamaria Hutchinson FNP 55 [facility] [address] [place] [address] [email or web address] 03/17/2025 2:00 PM EDT Office Visit [facility] 32 [facility], 9th Floor, [address] [place] [address] Vilma Lentz MD, PhD 55 [facility] [address] [place] [address] [email or web address] 04/16/2025 10:00 AM EDT Office Visit [facility] Department of Neurology [address] [place] [address], 8th Floor, [address] [place] [address] Seth Ross MD [address] [place] [address] [place] [address] [email or web address] documented as of this encounter Results * EEG (09/26/2018 11:28 AM EDT) Anatomical Region Laterality Modality EEG Impressions 09/27/2018 10:07 PM EDT This is an abnormal EEG in the awake and drowsy states, due to the following features: 1. Frequent intermittent focal theta slowing in left frontal region 2. 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 No epileptiform abnormalities were detected. COMPARISON: EEG from 2016 reported as abnormal EEG, in the awake and drowsy states due to occasional runs of left frontal rhythmic focal slowing. No epileptiform abnormalities were detected. This study is not available for visual comparison. Comparing the verbal read, there is no definitive worsening or improvement in the current study. INDICATION: 48 y.o. 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 EEG requested to assess if Depakote could be tapered. PERTINENT MEDICATIONS: Levetiracetam and Valproate METHOD: Standard 10-20 electrode placement, single-lead EKG, continuous video. DETAIL: The resting background was symmetric, and showed a well organized 8 Hz, 30 uV posterior dominant rhythm which attenuated with eye opening. 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 There was occasional focal theta slowing in left frontal regions. Drowsiness was characterized by a relative paucity of eye-blink artifact and attenuation of the background rhythm. Stage 2 sleep architecture was not seen. No epileptiform abnormalities were seen. There were no organized or evolving patterns suggestive of seizures. Photic stimulation was performed and did not produce a robust driving response. Hyperventilation was not performed. EKG: No dysrhythmia was observed. August Dumont MD,PhD [facility] Epilepsy Fellow 09/26/18 I (Juan Manuel De La Cruz MD) have reviewed the study with the fellow and edited this report. Start Time: 09/26/2018 11:02 AM End Time: 09/26/2018 11:28 AM Vilma Lentz MD, PhD NEUROLOGY JOSUE JUDD Final Result documented in this encounter Visit Diagnoses Diagnosis Convulsions, unspecified convulsion type Convulsions, unspecified convulsion type documented in this encounter Care Teams Dealer Accounts Investigator Relationship Specialty Start Date End Date Carmen Soni MD [address] [place] [address] PCP - General Internal Medicine 05/08/17 Vilma Lentz MD, PhD [address] [place] [address] 9[place], [place] [address] [email or web address] Primary Oncologist Neurology 04/07/16 Riya Jay RN [address] [place] [address] [email or web address] Primary Infusion Nurse 04/07/16 Fani Llamas MD [address] [place] [address] (work) [email or web address] Radiation Oncology 04/10/16 documented as of this encounter Additional Source Comments The information contained in this document represents components of the legal health record. It is not the complete legal health record.[facility]
--- OUTSIDE RECORDS SUMMARY | 2025-03-10 11:47 | XMS_ITS | Encounter Summary ---
Author Organization [facility] Address [address] [place] [address] [address] [place] [address] Phone Care Team Providers Care Crusher Setter Name Role Phone Vilma Lentz MD, PhD Unavailable Riya Jay RN Unavailable [phone] Fani Llamas MD Unavailable Carmen Soni MD Primary Care Provider Encounter Details Date Type Department Care Team (Late st Contact Info) Description 02/07/2025 Ancillary Orders [facility] [address] [facility], 9th Floor, [address] [place] [address] Vilma Lentz MD, PhD [address] [facility] [address] [place] [address] [email or web address] Oligodendroglioma Social History Tobacco Use Types Packs/Day [...] [address] [place] [address] 03/17/2025 12:45 PM EDT Appointment MRI, [facility] [address] [place] [address] Bhargav Naik MBBS [address] [place] [address] [email or web address] 03/17/2025 1:30 PM EDT Blood Draw [facility] [address] [facility], 9th Floor, [address] [place] [address] Annamaria Hutchinson FNP [address] [place] [address] [address] [place], [place] [email or web address] 03/17/2025 2:00 PM EDT Office Visit [facility] [address] [facility], 9th Floor, [address] [place] [address] Vilma Lentz MD, PhD [address] [place] [address] 9[place], [place] [address] [email or web address] 04/16/2025 10:00 AM EDT Office Visit [facility] Department of Neurology [address] [place] [address], 8th Floor, [address] [place] [address] Seth Ross MD [address] [place] [address] [place] [address] [email or web address] documented as of this encounter 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, unspecified site documented in this encounter Care Teams Crusher Setter Relationship Specialty Start Date End Date Carmen Soni MD [address] [place] [address] PCP - General Internal Medicine 05/08/17 Vilma Lentz MD, PhD [address] [place] [address] [email or web address] Primary Oncologist Neurology 04/07/16 Riya Jay RN 55 [place] [address] [email or web address] Primary Infusion Nurse 04/07/16 Fani Llamas MD [address] [place] [address] [email or web address] Radiation Oncology 04/10/16 documented as of this encounter Additional Source Comments The information contained in this document represents components of the legal health record. It is not the complete legal health record.[facility]
--- OUTSIDE RECORDS SUMMARY | 2025-03-10 11:47 | XMS_ITS | Encounter Summary ---
Author Organization [facility] Address [address] [place] [address] [place] [address] Phone Care Team Providers Care Salon Supervisor Name Role Phone Vilma Lentz MD, PhD Unavailable Riya Jay RN Unavailable +- [phone] Fani Llamas MD Unavailable Carmen Soni MD Primary Care Provider [phone] Encounter Details Date Type Department Care Team (Late st Contact Info) Description 07/23/2018 Procedure Pass MRI, [facility] - [place] [address] [place] [address] Social History Tobacco Use Types Packs/Day Years [...] Entry Date Author No 11/26/2015 11:15 AM EDT Jaz Avelar CNP documented in this encounter Plan of Treatment Upcoming Encounters Date Type Department Care Team (Late st Contact Info) Description 12/24/2024 [facility] Pass [facility] [address] [place] [address] 03/17/2025 12:45 PM EDT Appointment MRI, [facility] [address] [place] [address] Bhargav Naik MBBS 75 [place] [address] [email or web address]. [email or web address] 03/17/2025 1:30 PM EDT Blood Draw [facility] [address] [facility], 9th Floor, [address] [place] [address] Annamaria Hutchinson FNP [address] [facility] [address] [place] [address] [email or web address] 03/17/2025 2:00 PM EDT Office Visit [facility] [address] [facility], 9th Floor, [address] [place] [address] Vilma Lentz MD, PhD [address] [place] [address] 9[place], [place] [address] [email or web address] 04/16/2025 10:00 AM EDT Office Visit [facility] Department of Neurology [address] [place] [address], 8th Floor, [address] [place] [address] Seth Ross MD [address] [place] [address] [place] [address] [email or web address] documented as of this encounter Visit Diagnoses Not on filedocumented in this encounter Care Teams Salon Supervisor Relationship Specialty Start Date End Date Carmen Soni MD [address] [place] [address] PCP - General Internal Medicine 05/08/17 Vilma Lentz MD, PhD [address] [place] [address] [email or web address] Primary Oncologist Neurology 04/07/16 Riya Jay RN [address] [place] [address] [email or web address] Primary Infusion Nurse 04/07/16 Fani Llamas MD [address] [place] [address] [email or web address] Radiation Oncology 04/10/16 documented as of this encounter Additional Source Comments The information contained in this document represents components of the legal health record. It is not the complete legal health record.[facility]
--- OUTSIDE RECORDS SUMMARY | 2025-03-10 11:48 | XMS_ITS | Encounter Summary ---
Author Organization [facility] Address [address] [place] [address] [place] [address] Phone Care Team Providers Care Psychiatric Assistant Name Role Phone Vilma Lentz MD, PhD Unavailable Riya Jay RN Unavailable + [phone] Fani Llamas MD Unavailable Carmen Soni MD Primary Care Provider [phone] Encounter Details Date Type Department Care Team (Late st Contact Info) Description 05/28/2019 Procedure Pass [facility] for [facility]patient Care - MRI [address] [facility], 6th [place] [address] Social History Tobacco Use Types Packs/Day Years [...] No 11/26/2015 11:15 AM EDT Jaz Avelar, HAT SPRAYER * Patient is blind or has serious [...] Contact Info) Description 12/24/2024 Procedure Pass MRI, [facility] Imaging [address] [place] [address] 03/17/2025 12:45 PM EDT Appointment MRI, [facility] General Imaging [address] [place] [address] Bharagv Naik, SALEEM 75 [place] [address] [email or web address] [facility] 03/17/2025 1:30 PM EDT Blood Draw [facility] [address] [facility], 9th Floor, [address] [place] [address] Annamaria Hutchinson FNP [address] [facility] [address] [place] [address] [email or web address] 03/17/2025 2:00 PM EDT Office Visit [facility] for Neuro Oncology [address] [place] [address], 9th Floor, [address] [place] [address] Vilma Lentz MD, PhD [address] [place] [address] [address] [place] [address] [email or web address] 04/16/2025 10:00 AM EDT Office Visit [facility] Department of Neurology [address] [facility], 8th Floor, [address] [place] [address] Seth Ross MD [address] [place] [address] [place] [address] [email or web address] documented as of this encounter Visit Diagnoses Not on filedocumented in this encounter Care Teams Psychiatric Assistant Relationship Specialty Start Date End Date Carmen Soni MD [address] [place] [address] PCP - General Internal Medicine 05/08/17 Vilma Lentz MD, PhD [address] [place] [address] [place] [address] [email or web address] Primary Oncologist Neurology 04/07/16 Riya Jay, RAVI [address] [place] [address] [email or web address] Primary Infusion Nurse 04/07/16 Fani Llamas MD [address] [place] [address] [email or web address] Radiation Oncology 04/10/16 documented as of this encounter Additional Source Comments The information contained in this document represents components of the legal health record. It is not the complete legal health record.[facility]
--- OUTSIDE RECORDS SUMMARY | 2025-03-10 11:50 | XMS_ITS | Encounter Summary ---
Author Organization [facility] Address [address] [place] [address] [place] [address] Phone Care Team Providers Care Elementary Math Tutor Name Role Phone Vilma Lentz MD, PhD Unavailable Riya Jay RN Unavailable + [phone] Fani Llamas MD Unavailable Carmen Soni MD Primary Care Provider [phone] Encounter Details Date Type Department Care Team (Late st Contact Info) Description 11/01/2018 Procedure Pass [facility] Outpatient Care - MRI [address] [facility], 6th [place] [address] Social History Tobacco Use Types Packs/Day Years [...] No 11/26/2015 11:15 AM EDT Jaz Avelar, SHOW HORSE DRIVER * Patient is blind or has serious [...] Contact Info) Description 12/24/2024 Procedure Pass MRI, [facility] General Imaging [address] [place] [address] 03/17/2025 12:45 PM EDT Appointment MRI, [facility] General Imaging [address] [place] [address] Bhargav Naik, SALEEM 75 [place] [address] [email or web address]. [facility] 03/17/2025 1:30 PM EDT Blood Draw [facility] [address] [facility], 9th Floor, [address] [place] [address] Annamaria Hutchinson FNP [address] [facility] [address] [place] [address] [email or web address] 03/17/2025 2:00 PM EDT Office [facility] [address] [place] [address], 9th Floor, [address] [place] [address] Vilma Lentz MD, PhD [address] [place] [address] [address] [place] [address] [email or web address] 04/16/2025 10:00 AM EDT Office [place] [facility] Department of Neurology [address] [facility], 8th Floor, [address] [place] [address] Seth Ross MD [address] [place] [address] [place] [address] [email or web address] documented as of this encounter Visit Diagnoses Not on filedocumented in this encounter Care Teams Elementary Math Tutor Relationship Specialty Start Date End Date Carmen Soni MD [address] [place] [address] PCP - General Internal Medicine 05/08/17 Vilma Lentz MD, PhD [address] [place] [address] 9[place], [place] [address] [email or web address] Primary Oncologist Neurology 04/07/16 Riya Jay, RAVI [address] [place] [address] [email or web address] Primary Infusion Nurse 04/07/16 Fani Llamas MD [address] [place] [address] [email or web address] Radiation Oncology 04/10/16 documented as of this encounter Additional Source Comments The information contained in this document represents components of the legal health record. It is not the complete legal health record.[facility]
--- OUTSIDE RECORDS SUMMARY | 2025-03-10 11:50 | XMS_ITS | Encounter Summary ---
Author Organization [facility] Address [address] [place] [address] Phone Care Team Providers Care Quality Improvement Coordinator Name Role Phone Vilma Lentz MD, PhD Unavailable Riya Jay RN Unavailable +- [phone] Fani Llamas MD Unavailable Carmen Soni MD Primary Care Provider [phone] Encounter Details Date Type Department Care Team (Late st Contact Info) Description 06/28/2024 Procedure Pass MRI, [facility] [address] [place] [address] Social History Tobacco Use Types Packs/Day Years [...] [address] [place] [address] 03/17/2025 12:45 PM EDT Appointment [facility], [facility] [address] [place] [address] Bhargav Naik MBBS [address] [place] [address] [email or web address] 03/17/2025 1:30 PM EDT Blood Draw [facility] for Neuro Oncology [address] [place] [address], 9th Floor, [address] [place] [address] Annamaria Hutchinson, JOHN [address] [place] [address] [address] [place] [address] [email or web address] 03/17/2025 2:00 PM EDT Office Visit [facility] [address] [facility], 9th Floor, [address] [place] [address] Vilma Lentz MD, PhD [address] [place] [address] [address] [place] [address] [email or web address] 04/16/2025 10:00 AM EDT Office Visit [facility] Department of Neurology [address] [place] [address], 8th Floor, [address] [place] [address] Seth Ross MD [address] [place] [address] [place] [address] [email or web address] documented as of this encounter Visit Diagnoses Not on filedocumented in this encounter Care Teams Quality Improvement Coordinator Relationship Specialty Start Date End Date Carmen Soni MD [address] [place] [address] PCP - General Internal Medicine 05/08/17 Vilma Lentz MD, PhD [address] [place] [address] [address] [place] [address] [email or web address] Primary Oncologist Neurology 04/07/16 Riya Jay, RAVI [address] [place] [address] [email or web address] Primary Infusion Nurse 04/07/16 Fani Llamas MD [address] [place] [address] [email or web address] Radiation Oncology 04/10/16 documented as of this encounter Additional Source Comments The information contained in this document represents components of the legal health record. It is not the complete legal health record.[facility]
--- OUTSIDE RECORDS SUMMARY | 2025-03-10 11:50 | XMS_ITS | Encounter Summary ---
Author Organization [facility] Address [address] [place] [address] [place] [address] Phone Care Team Providers Care Mechanical Engineering Teacher Name Role Phone Vilma Lentz MD, PhD Unavailable Riya Jay RN Unavailable + [phone] Fani Llamas MD Unavailable Carmen Soni MD Primary Care Provider [phone] Carmen Soni MD Primary Care Provider [phone] Encounter Details Date Type Department Care Team (Late st Contact Info) Description 03/29/2017 Procedure Pass [facility] [address] [place] [address] Social History Tobacco Use Types Packs/Day Years [...] No 11/26/2015 11:15 AM EDT Jaz Avelar, ANTI TANK MISSILEMAN * Patient is blind or has serious [...] [address] [place] [address] 03/17/2025 12:45 PM EDT Appointment MRI, [facility] General Imaging [address] [place] [address] Bhargav Naik MBBS 75 [place] [address] [email or web address] 03/17/2025 1:30 PM EDT Blood Draw [facility] for Neuro Oncology [address] [facility], 9th Floor, [address] [place] [address] Annamaria Hutchinson FNP [address] [facility] [address] [place] [address] [email or web address] 03/17/2025 2:00 PM EDT Office Visit [facility] [address] [facility], 9th Floor, [address] [place] [address] Vilma Lentz MD, PhD [address] [place] [address] [place], [place] [address] [email or web address] 04/16/2025 10:00 AM EDT Office Visit [facility] Department of Neurology [address] [place] [address], 8th Floor, [address] [place] [address] Seth Ross MD [address] [place] [address] [place] [address] [email or web address] documented as of this encounter Visit Diagnoses Not on filedocumented in this encounter Care Teams Mechanical Engineering Teacher Relationship Specialty Start Date End Date Carmen Soni MD [address] [place] [address] PCP - General Internal Medicine 12/19/16 05/07/17 Carmen Soni MD [address] [place] [address] PCP - General Internal Medicine 05/08/17 Vilma Lentz MD, PhD [address] [place] [address] [email or web address] Primary Oncologist Neurology 04/07/16 Riya Jay RN [address] [place] [address] [email or web address] Primary Infusion Nurse 04/07/16 Fani Llamas MD [address] [place] [address] CHARLIE@[email or web address] Radiation Oncology 04/10/16 documented as of this encounter Additional Source Comments The information contained in this document represents components of the legal health record. It is not the complete legal health record.[facility]
--- OUTSIDE RECORDS SUMMARY | 2025-03-10 11:50 | XMS_ITS | Encounter Summary ---
Author Organization [facility] Address [address] [place] [address] [place] [address] Phone Care Team Providers Care Tactical Intelligence Officer Name Role Phone Vilma Lentz MD, PhD Unavailable Riya Jay RN Unavailable + [phone] Fani Llamas MD Unavailable Carmen Soni MD Primary Care Provider [phone] Encounter Details Date Type Department Care Team (Late st Contact Info) Description 01/21/2019 Procedure Pass [facility] for [facility]patient Care - MRI [address] [facility], 6th [place] [address] Social History Tobacco Use Types Packs/Day Years [...] No 11/26/2015 11:15 AM EDT Jaz Avelar, CAFETERIA ASSOCIATE * Patient is blind or has serious [...] Contact Info) Description 12/24/2024 Procedure Pass MRI, [facility] General Imaging [address] [place] [address] 03/17/2025 12:45 PM EDT Appointment MRI, [facility] General Imaging [address] [place] [address] Bhargav Naik, SALEEM 75 [place] [address] [email or web address]. [facility] 03/17/2025 1:30 PM EDT Blood Draw [facility] for Neuro Oncology [address] [facility], 9th Floor, [address] [place] [address] Annamaria Hutchinson FNP [address] [facility] [address] [place] [address] [email or web address] 03/17/2025 2:00 PM EDT Office Visit [facility] On[facility] [address] [place] [address], 9th Floor, [address] [place] [address] Vilma Lentz MD, PhD [address] [place] [address] [address] [place] [address] [email or web address] 04/16/2025 10:00 AM EDT Office Visit [facility] Department of Neurology [address] [facility], 8th Floor, [address] [place] [address] Seth Ross MD [address] [place] [address] [place] [address] [email or web address] documented as of this encounter Visit Diagnoses Not on filedocumented in this encounter Care Teams Tactical Intelligence Officer Relationship Specialty Start Date End Date Carmen Soni MD [address] [place] [address] PCP - General Internal Medicine 05/08/17 Vilma Letnz MD, PhD [address] [place] [address] 9[place], [place] [address] [email or web address] Primary Oncologist Neurology 04/07/16 Riya Jay, RAVI [address] [place] [address] [email or web address] Primary Infusion Nurse 04/07/16 Fani Llamas MD [address] [place] [address] [email or web address] Radiation Oncology 04/10/16 documented as of this encounter Additional Source Comments The information contained in this document represents components of the legal health record. It is not the complete legal health record.[facility]
--- OUTSIDE RECORDS SUMMARY | 2025-03-10 11:51 | XMS_ITS | Encounter Summary ---
Author Organization [facility] Address [address] [place] [address] [place] [address] Phone Care Team Providers Care Electric Sign Wirer Name Role Phone Vilma Lentz MD, PhD Unavailable Riya Jay RN Unavailable +- [phone] Fani Llamas MD Unavailable Carmen Soni MD Primary Care Provider [phone] Encounter Details Date Type Department Care Team (Late st Contact Info) Description 09/21/2020 Procedure Pass MRI, [facility] Imaging - [address] [place] [address] Social History Tobacco Use Types Packs/Day Years [...] No 11/26/2015 11:15 AM EDT Jaz Avelar, TAILOR FITTER * Patient is blind or has serious [...] Contact Info) Description 12/24/2024 Procedure Pass MRI, [facility] General Imaging [address] [place] [address] 03/17/2025 12:45 PM EDT Appointment MRI, [facility] General Imaging [address] [place] [address] Bhargav Naik MBBS [address] [place] [address] [email or web address]. [facility] 03/17/2025 1:30 PM EDT Blood Draw [facility] [address] [facility], 9th Floor, [address] [place] [address] Annamaria Hutchinson FNP 55 [facility] [address] [place] [address] [email or web address] 03/17/2025 2:00 PM EDT Office Visit [facility] [address] [facility], 9th Floor, [address] [place] [address] Vilma Lentz MD, PhD [address] [place] [address] [address] [address] [email or web address] 04/16/2025 10:00 AM EDT Office Visit [facility] Department of Neurology 55 [facility], 8th Floor, [address] [place] [address] Seth Ross MD [address] [place] [address] [place] [address] [email or web address] documented as of this encounter Visit Diagnoses Not on filedocumented in this encounter Care Teams Electric Sign Wirer Relationship Specialty Start Date End Date Carmen Soni MD [address] [place] [address] PCP - General Internal Medicine 05/08/17 Vilma Lentz MD, PhD [address] [place] [address] [email or web address] Primary Oncologist Neurology 04/07/16 Riya Jay RN [address] [place] [address] [email or web address] Primary Infusion Nurse 04/07/16 Fani Llamas MD [address] [place] [address] [facility] Radiation Oncology 04/10/16 documented as of this encounter Additional Source Comments The information contained in this document represents components of the legal health record. It is not the complete legal health record.[facility]
--- OUTSIDE RECORDS SUMMARY | 2025-03-10 11:52 | XMS_ITS | Encounter Summary ---
Author Organization [facility] Address [address] [facility] [address] [place] [address] Phone Care Team Providers Care Tip Puncher Name Role Phone Vilma Lentz MD, PhD Unavailable Riya Jay RN Unavailable [phone]- [phone] Fani Llamas MD Unavailable Carmen Soni MD Primary Care Provider [phone] Encounter Details Date Type Department Care Team (Late st Contact Info) Description 11/06/2017 Documentation [facility] [address] [place] [address] Rachel Peña MD [address] [place] [address] [place] [address] [email or web address]@[email or web address] Social History Tobacco Use Types Packs/Day [...] [address] [place] [address] 03/17/2025 12:45 PM EDT Appointment MRI, [facility] General Imaging [address] [place] [address] Bhargav Naik MBBS [address] [place] [address] [email or web address] 03/17/2025 1:30 PM EDT Blood Draw [facility] for Neuro Oncology 32 [facility], 9th Floor, [address] [place] [address] Annamaria Hutchinson FNP 55 [facility] [address] [place] [address] [email or web address] 03/17/2025 2:00 PM EDT Office Visit [facility] for Neuro Oncology 32 [facility], 9th Floor, [address] [place] [address] Vilma Lentz MD, PhD [address] [place] [address] [address] [place] [address] [email or web address] 04/16/2025 10:00 AM EDT Office Visit [facility] Department of Neurology [address] [facility], 8th Floor, [address] [place] [address] Seth Ross MD [address] [place] [address] [email or web address] documented as of this encounter Visit Diagnoses Not on filedocumented in this encounter Care Teams Tip Puncher Relationship Specialty Start Date End Date Carmen Soni MD [address] [place] [address] PCP - General Internal Medicine 05/08/17 Vilma Lentz MD, PhD [address] [place] [address] [address] [place] [address] [email or web address] Primary Oncologist Neurology 04/07/16 Riya Jay, RAVI [address] [place] [address] [email or web address] Primary Infusion Nurse 04/07/16 Fani Llamas MD [address] [place] [address] [email or web address] Radiation Oncology 04/10/16 documented as of this encounter Additional Source Comments The information contained in this document represents components of the legal health record. It is not the complete legal health record.[facility]
--- OUTSIDE RECORDS SUMMARY | 2025-03-10 11:52 | XMS_ITS | Encounter Summary ---
Author Organization [facility] Address [address] [place] [address] [address] [place] [address] Phone Care Team Providers Care Candy Waffle Assembler Name Role Phone Vilma Lentz MD, PhD Unavailable Riya Jay RN Unavailable [phone] Fani Llamas MD Unavailable Carmen Soni MD Primary Care Provider [phone] Encounter Details Date Type Department Care Team (Late st Contact Info) Description 01/14/[address] [facility] Center for Neuro Oncology [address] [facility], 9th Floor, [address] [place] [address] Vilma Lentz MD, PhD [address] [facility] [address] [place] [address] [email or web address] Oligodendroglioma Social History Tobacco Use Types Packs/Day [...] Assessment Author No 11/26/2015 11:15 AM Jaz Artaega CNP * Patient has serious difficulty walking [...] [address] [place] [address] 03/17/2025 12:45 PM EDT Appointment MRI, [facility] [address] [place] [address] Bhargav Naik MBBS [address] [place] [address] [email or web address] 03/17/2025 1:30 [address] EDT Blood [facility] [address] [facility], 9th Floor, [address] [place] [address] Annamaria Hutchinson FNP [address] [place] [address] [address] [place], [place] anna@[email or web address] 03/17/2025 2:00 PM EDT Office 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, unspecified site documented in this encounter Care Teams Candy Waffle Assembler Relationship Specialty Start Date End Date Carmen Soni MD [address] [place] [address] PCP - General Internal Medicine 05/08/17 Vilma Lentz MD, PhD [address] [place] [address] [email or web address] Primary Oncologist Neurology 04/07/16 Riya Jay RN 55 [place] [address] [email or web address] Primary Infusion Nurse 04/07/16 Fani Llamas MD [address] [place] [address] [facility] Radiation Oncology 04/10/16 documented as of this encounter Additional Source Comments The information contained in this document represents components of the legal health record. It is not the complete legal health record.[facility]
--- OUTSIDE RECORDS SUMMARY | 2025-03-10 11:52 | XMS_ITS | Encounter Summary ---
Author Organization [facility] Address [address] [place] [address] [address] [place] [address] Phone Care Team Providers Care Subcontract Manager Name Role Phone Vilma Lentz MD, PhD Unavailable Riya Jay RN Unavailable [phone] Fani Llamas MD Unavailable Carmen Soni MD Primary Care Provider [phone] Encounter Details Date Type Department Care Team (Late st Contact Info) Description 12/31/2024 Ancillary Orders [facility] Center for Neuro Oncology 32 [facility], 9th Floor, [address] [place] [address] Vilma Lentz MD, PhD 55 [facility] [address] [place] [address] [email or web address] Oligodendroglioma Social History Tobacco Use Types Packs/Day [...] [address] [place] [address] 03/17/2025 12:45 PM EDT Appointment MRI, [facility] [address] [place] [address] Bhargav Naik MBBS [address] [place] [address] [email or web address] 03/17/2025 1:30 PM EDT Blood Draw [facility] for Neuro Oncology 32 [facility], 9th Floor, [address] [place] [address] Annamaria Hutchinson FNP [address] [place] [address] [address] [place], [place] anna@[email or web address] 03/17/2025 2:00 PM EDT Office Visit [facility] for [facility] Oncology 32 [facility], 9th Floor, [address] [place] [address] Vilma Lentz MD, PhD [address] [place] [address] [place] [address] [email or web address] 04/16/2025 10:00 AM EDT Office Visit [facility] Department of Neurology [address] [place] [address], 8th Floor, [address] [place] [address] Seth Ross MD [address] [place] [address] [place] [address] WINIFRED@[email or web address] documented as of this encounter 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, unspecified site documented in this encounter Care Teams Subcontract Manager Relationship Specialty Start Date End Date Carmen Soni MD [address] [place] [address] PCP - General Internal Medicine 05/08/17 Vilma eLntz MD, PhD [address] [place] [address] [email or web address] Primary Oncologist Neurology 04/07/16 Riya Jay RN 55 [place] [address] [email or web address] Primary Infusion Nurse 04/07/16 Fani Llamas MD [address] [place] [address] [email or web address] Radiation Oncology 04/10/16 documented as of this encounter Additional Source Comments The information contained in this document represents components of the legal health record. It is not the complete legal health record.[facility]
--- OUTSIDE RECORDS SUMMARY | 2025-03-10 11:52 | XMS_ITS | Encounter Summary ---
Author Organization [facility] Address [address] [place] [address] [address] [place] [address] Phone Care Team Providers Care Maintenance Groundman Name Role Phone Vilma Lentz MD, PhD Unavailable Ryia Jay RN Unavailable [phone] Fani Llamas MD Unavailable Carmen Soni MD Primary Care Provider [phone] Encounter Details Date Type Department Care Team (Late st Contact Info) Description 01/31/[address] [facility] for Neuro Oncology [address] [facility], 9th Floor, [address] [place] [address] Vilma Lentz MD, PhD [address] [facility] [address] [place] [address] [email or web address] Oligodendroglioma Social History Tobacco Use Types Packs/Day [...] [address] [place] [address] 03/17/2025 12:45 PM EDT Appointment MRI, [facility] [address] [place] [address] Bhargav Naik MBBS [address] [place] [address] [email or web address] 03/17/2025 1:30 PM EDT Blood Draw [facility] for [facility] Oncology [address] [facility], 9th Floor, [address] [place] [address] Annamaria Hutchinson FNP [address] [place] [address] [address] [place], [place] anna@[facility] 03/17/2025 2:00 PM EDT Office Visit [facility] for Neuro Oncology [address] [facility], 9th Floor, [address] [place] [address] Vilma Lentz MD, PhD [address] [place] [address] [place] [address] [email or web address] 04/16/2025 10:00 AM EDT Office Visit [facility] Department of Neurology [address] [place] [address], 8th Floor, [address] [place] [address] Seth Ross MD [address] [place] [address] [place] [address] WINIFRED@[email or web address] documented as of this encounter 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, unspecified site documented in this encounter Care Teams Maintenance Groundman Relationship Specialty Start Date End Date Carmen Soni MD [address] [place] [address] PCP - General Internal Medicine 05/08/17 Vilma Lentz MD, PhD [address] [place] [address] [email or web address] Primary Oncologist Neurology 04/07/16 Riya Jay RN 55 [place] [address] [email or web address] Primary Infusion Nurse 04/07/16 Fani Llamas MD [address] [place] [address] [facility] Radiation Oncology 04/10/16 documented as of this encounter Additional Source Comments The information contained in this document represents components of the legal health record. It is not the complete legal health record.[facility]
--- OUTSIDE RECORDS SUMMARY | 2025-03-10 11:52 | XMS_ITS | Encounter Summary ---
Author Organization [facility] Address [address] [place] [address] [address] [place] [address] Phone Care Team Providers Care Chiropractic Practice Manager Name Role Phone Vilma Lentz MD, PhD Unavailable Riya Jay RN Unavailable [phone] Fani Llamas MD Unavailable Carmen Soni MD Primary Care Provider [phone] Encounter Details Date Type Department Care Team (Late st Contact Info) Description 01/03/2025 Ancillary Orders [facility] Center for Neuro Oncology 32 [facility], 9th Floor, [address] [place] [address] Vilma Lentz MD, PhD [address] [employer] [address] [place] [address] [email or web address] Oligodendroglioma Social History Tobacco Use Types Packs/Day [...] [address] [place] [address] 03/17/2025 12:45 PM EDT Appointment MRI, [facility] [address] [place] [address] Bhargav Naik MBBS [address] [place] [address] [email or web address] 03/17/2025 1:30 PM EDT Blood Draw [facility] for Neuro Oncology 32 [facility], 9th Floor, [address] [place] [address] Annamaria Hutchinson FNP [address] [place] [address] [address] [place], [place] anna@[facility] 03/17/2025 2:00 PM EDT Office Visit [facility]cology [address] [facility], 9th Floor, [address] [place] [address] Vilam Lentz MD, PhD [address] [place] [address] 9[place] [address] [email or web address] 04/16/2025 10:00 AM EDT Office Visit [facility] Department of Neurology [address] [place] [address], 8th Floor, [address] [place] [address] Seth Ross MD [address] [place] [address] [place] [address] WINIFRED@[email or web address] documented as of this encounter 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, unspecified site documented in this encounter Care Teams Chiropractic Practice Manager Relationship Specialty Start Date End Date Carmen Soni MD [address] [place] [address] PCP - General Internal Medicine 05/08/17 Vilma Lentz MD, PhD [address] [place] [address] [email or web address] Primary Oncologist Neurology 04/07/16 Riya Jay RN 55 [place] [address] [email or web address] Primary Infusion Nurse 04/07/16 Fani Llamas MD [address] [place] [address] [facility] Radiation Oncology 04/10/16 documented as of this encounter Additional Source Comments The information contained in this document represents components of the legal health record. It is not the complete legal health record.[facility]
--- OUTSIDE RECORDS SUMMARY | 2025-03-10 11:52 | XMS_ITS | Encounter Summary ---
Author Organization [facility] Address [address] [place] [address] [place] [address] Phone Care Team Providers Care Senior Center Director Name Role Phone Vilma Lentz MD, PhD Unavailable Riya Jay RN Unavailable + [phone] Fani Llamas MD Unavailable Carmen Soni MD Primary Care Provider [phone] Encounter Details Date Type Department Care Team (Late st Contact Info) Description 06/20/2017 Procedure Pass [facility] Imaging [address] [place] [address] Social History Tobacco Use Types Packs/Day Years [...] Contact Info) Description 12/24/2024 [facility] [address] [place] [address] 03/17/2025 12:45 PM EDT [facility]ointment [facility] Imaging [address] [place] [address] Bhargav Naik MBBS [address] [place] [address] [email or web address].[place] 03/17/2025 1:30 PM EDT Blood Draw [facility] for Neuro Oncology [address] [facility], 9th Floor, [address] [place] [address] Annamaria Hutchinson, JOHN 55 [facility] [address] [place] [address] [email or web address] 03/17/2025 2:00 PM EDT Office Visit [facility] for Neuro Oncology [address] [facility], 9th Floor, [address] [place] [address] Vilma Lentz MD, PhD [address] [place] [address] [address] [place] [address] [email or web address] 04/16/2025 10:00 AM EDT Office Visit [facility] Department of Neurology [address] [place] [address], 8th Floor, [address] [place] [address] Seth Ross MD [address] [place] [address] [place] [address] [email or web address]@[email or web address] documented as of this encounter Visit Diagnoses Not on filedocumented in this encounter Care Teams Senior Center Director Relationship Specialty Start Date End Date Carmen Soni MD [address] [place] [address] PCP - General Internal Medicine 05/08/17 Vilma Lentz MD, PhD [address] [place] [address] [address] [place] [address] [email or web address] Primary Oncologist Neurology 04/07/16 Riya Jay, RAVI [address] [place] [address] [email or web address] Primary Infusion Nurse 04/07/16 Fani Llamas MD [address] [place] [address] [email or web address] Radiation Oncology 04/10/16 documented as of this encounter Additional Source Comments The information contained in this document represents components of the legal health record. It is not the complete legal health record.[facility]
--- OUTSIDE RECORDS SUMMARY | 2025-03-10 11:52 | XMS_ITS | Encounter Summary ---
Author Organization Located Within [facility] Address [address] [place] [address] [address] [place] [address] Phone Care Team Providers Care Historic Interpreter Name Role Phone Vilma Lentz MD, PhD Unavailable Riya Jay RN Unavailable +- [phone] Fani Llamas MD Unavailable Carmen Soni MD Primary Care Provider [phone] Encounter Details Date Type Department Care Team (Late st Contact Info) Description 10/16/2017 Telephone [facility] Psychiatry Oncology [address] [place] [address], 10th Floor, [address] [place] [address] Rachel Peña MD [address] [place] [address] [address] [place] [address] [email or web address]. du Social History Tobacco Use Types Packs/Day Years [...] [address] [place] [address] 03/17/2025 12:45 PM EDT Appointment MRI, [facility] General Imaging [address] [place] [address] Bhargav Naik MBBS 75 [place] [address] [email or web address] 03/17/2025 1:30 [address]T Blood [address] [facility] Center for Neuro Oncology [address] [facility], 9th Floor, [address] [place] [address] Annamaria Hutchinson FNP 55 [facility] [address] [place] [address] 03/17/2025 2:00 PM EDT Office Visit [facility] for Neuro Oncology [address] [facility], 9th Floor, [address] [place] [address] Vilma Lentz MD, PhD [address] [facility] [address] [place] [address] [email or web address] 04/16/2025 10:00 AM EDT Office Visit [facility] Department of Neurology [address] [facility], 8th Floor, [address] [place] [address] Seth Ross MD [address] [place] [address] [place] [address] [email or web address] documented as of this encounter Visit Diagnoses Not on filedocumented in this encounter Care Teams Historic Interpreter Relationship Specialty Start Date End Date Carmen Soni MD [address] [place] [address] PCP - General Internal Medicine 05/08/17 Vilma Lentz MD, PhD [address] [place] [address] [address] [place] [address] [email or web address] Primary Oncologist Neurology 04/07/16 Riya Jay, RAVI [address] [place] [address] [email or web address] Primary Infusion Nurse 04/07/16 Fani Llamas MD [address] [place] [address] [email or web address]@[email or web address] Radiation Oncology 04/10/16 documented as of this encounter Additional Source Comments The information contained in this document represents components of the legal health record. It is not the complete legal health record.[facility]
--- OUTSIDE RECORDS SUMMARY | 2025-03-10 11:52 | XMS_ITS | Encounter Summary ---
Author Organization [facility] Address [address] [place] [address] [place] [address] Phone Care Team Providers Care Pleater Hand Name Role Phone Vilma Lentz MD, PhD Unavailable Riya Jay RN Unavailable [phone]- [phone] Fani Llamas MD Unavailable Carmen Soni MD Primary Care Provider Encounter Details Date Type Department Care Team (Late st Contact Info) Description 09/12/2022 Procedure Pass MRI, [facility] Imaging - [address] [place] [address] Social History Tobacco Use Types Packs/Day Years [...] No 11/26/2015 11:15 AM EDT Jaz Avelar, INCINERATOR PLANT GENERAL SUPERVISOR * Patient is blind or has serious [...] Contact Info) Description 12/24/2024 Procedure Pass MRI, [facility] General Imaging [address] [place] [address] 03/17/2025 12:45 PM EDT Appointment MRI, [facility] General Imaging [address] [place] [address] Bhargav Naik MBBS 75 [place] [address] [email or web address]. [facility] 03/17/2025 1:30 PM EDT Blood Draw [facility] for Neuro Oncology [address] [facility], 9th Floor, [address] [place] [address] Annamaria Hutchinson FNP 55 [facility] [address] [place] [address] [email or web address] 03/17/2025 2:00 PM EDT Office [facility] 32 [facility], 9th Floor, [address] [place] [address] Vilma Lentz MD, PhD [address] [place] [address] [place], [place] [address] [email or web address] 04/16/2025 10:00 AM EDT Office Visit [facility] Department of Neurology 55 [facility], 8th Floor, [address] [place] [address] Seth Ross MD [address] [place] [address] [place] [address] WINIFRED@[email or web address] documented as of this encounter Visit Diagnoses Not on filedocumented in this encounter Care Teams Pleater Hand Relationship Specialty Start Date End Date Carmen Soni MD [address] [place] [address] PCP - General Internal Medicine 05/08/17 Vilma Lentz MD, PhD [address] [place] [address] [email or web address] Primary Oncologist Neurology 04/07/16 Riya Jay RN [address] [place] [address] [email or web address] Primary Infusion Nurse 04/07/16 Fani Llamas MD [address] [place] [address] [facility] Radiation Oncology 04/10/16 documented as of this encounter Additional Source Comments The information contained in this document represents components of the legal health record. It is not the complete legal health record.[facility]
--- OUTSIDE RECORDS SUMMARY | 2025-03-10 11:52 | XMS_ITS | Encounter Summary ---
Author Organization [facility] Address [address] [place] [address] [place] [address] Phone Care Team Providers Care Supervisor Wet Room Name Role Phone Vilma Lentz MD, PhD Unavailable Riya Jay RN Unavailable [phone]- [phone] Fani Llamas MD Unavailable Carmen Soni MD Primary Care Provider Encounter Details Date Type Department Care Team (Late st Contact Info) Description 06/07/2022 Procedure Pass MRI, [facility] Imaging - [address]ela 80 [place] [address] Social History Tobacco Use Types Packs/Day Years [...] No 11/26/2015 11:15 AM EDT Jaz Avelar, DIVISION ORDER TECHNICIAN * Patient is blind or has serious [...] [address] [place] [address] 03/17/2025 12:45 PM EDT Appointment MRI, [facility] General Imaging [address] [place] [address] Bhargav Naik MBBS 75 [place] [address] [email or web address]. [facility] 03/17/2025 1:30 PM EDT Blood Draw [facility] for Neuro Oncology 32 [facility], 9th Floor, [address] [place] [address] Annamaria Hutchinson FNP 55 [facility] [address] 7 [place] [address] [email or web address] 03/17/2025 2:00 PM EDT Office Visit [facility] for Neuro Oncology 32 [facility], 9th Floor, [address] [place] [address] Vilma Lentz MD, PhD [address] [place] [address] [place] [address] [email or web address] 04/16/2025 10:00 AM EDT Office Visit [facility] Department of Neurology 55 [facility], 8th Floor, [address] [place] [address] Seth Ross MD [address] [place] [address] [place] [address] [email or web address] documented as of this encounter Visit Diagnoses Not on filedocumented in this encounter Care Teams Supervisor Wet Room Relationship Specialty Start Date End Date Carmen Soni MD [address] [place] [address] PCP - General Internal Medicine 05/08/17 Vilma Lentz MD, PhD [address] [place] [address] [email or web address] Primary Oncologist Neurology 04/07/16 Riya Jay RN [address] [place] [address] [email or web address] Primary Infusion Nurse 04/07/16 Fani Llamas MD [address] [place] [address] [email or web address] Radiation Oncology 04/10/16 documented as of this encounter Additional Source Comments The information contained in this document represents components of the legal health record. It is not the complete legal health record.[facility]
--- OUTSIDE RECORDS SUMMARY | 2025-03-10 11:52 | XMS_ITS | Encounter Summary ---
Author Organization [facility] Address [address] [place] [address] [address] [place] [address] Phone Care Team Providers Care Sports Lawyer Name Role Phone Vilma Lentz MD, PhD Unavailable Riya Jay RN Unavailable [phone] Fani Llamas MD Unavailable Carmen Soni MD Primary Care Provider [phone] Encounter Details Date Type Department Care Team (Late st Contact Info) Description 01/10/2025 Ancillary Orders [facility] Center for Neuro Oncology [address] [facility], 9th Floor, [address] [place] [address] Vilma Lentz MD, PhD [address] [facility] [address] [place] [address] [email or web address] Oligodendroglioma Social History Tobacco Use Types Packs/Day [...] [address] [place] [address] 03/17/2025 12:45 PM EDT Appointment [facility], [facility] [address] [place] [address] Bhargav Naik MBBS [address] [place] [address] [email or web address] 03/17/2025 1:30 PM EDT Blood Draw [facility] for [facility] Oncology 32 [facility], 9th Floor, [address] [place] [address] Annamaria Hutchinson FNP [address] [place] [address] [address] [place], [place] [email or web address] 03/17/2025 2:00 PM EDT Office Visit [facility] for [facility] Oncology 32 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 Radiation Oncology 04/10/16 documented as of this encounter Additional Source Comments The information contained in this document represents components of the legal health record. It is not the complete legal health record.[facility]
--- OUTSIDE RECORDS SUMMARY | 2025-03-10 11:52 | XMS_ITS | Encounter Summary ---
Author Organization [facility] Address [address] [place] [address] Phone Care Team Providers Care Auctioneer Automobile Name Role Phone Vilma Lentz MD, PhD Unavailable Riya Jay RN Unavailable [phone]- [phone] Fani Llamas MD Unavailable Carmen Soni MD Primary Care Provider [phone] Encounter Details Date Type Department Care Team (Late st Contact Info) Description 08/14/2023 Procedure Pass MRI, [facility] Imaging [address] [place] [address] Social History Tobacco Use Types Packs/Day Years [...] [address] [place] [address] 03/17/2025 12:45 PM EDT Appointment MRI, [facility] [address] [place] [address] Bhargav Naik MBBS [address] [place] [address] [email or web address] 03/17/2025 1:30 PM EDT Blood Draw [facility] Center for Neuro Oncology [address] [place] [address], 9th Floor, [address] [place] [address] Annamaria Hutchinson, JOHN [address] [place] [address] [address] [place] [address] [email or web address] 03/17/2025 2:00 PM EDT Office Visit [facility] for [facility] Oncology [address] [facility], 9th Floor, [address] [place] [address] Vilma Lentz MD, PhD [address] [place] [address] [address] [place] [address] [email or web address] 04/16/2025 10:00 AM EDT Office Visit [facility] Department of Neurology [address] [place] [address], 8th Floor, [address] [place] [address] Seth Ross MD [address] [place] [address] [place] [address] WINIFRED@[email or web address] documented as of this encounter Visit Diagnoses Not on filedocumented in this encounter Care Teams Auctioneer Automobile Relationship Specialty Start Date End Date Carmen Soni MD [address] [place] [address] PCP - General Internal Medicine 05/08/17 Vilma Lentz MD, PhD [address] [place] [address] 9[address] [place] [address] [email or web address] Primary Oncologist Neurology 04/07/16 Riya Jay, RAVI [address] [place] [address] [email or web address] Primary Infusion Nurse 04/07/16 Fani Llamas MD [address] [place] [address] [address] [email or web address] Radiation Oncology 04/10/16 documented as of this encounter Additional Source Comments The information contained in this document represents components of the legal health record. It is not the complete legal health record.[facility]
--- OUTSIDE RECORDS SUMMARY | 2025-03-10 11:52 | XMS_ITS | Encounter Summary ---
Author Organization [facility] Address [address] [place] [address] [place] [address] Phone Care Team Providers Care Laborer Filter Plant Name Role Phone Vilma Lentz MD, PhD Unavailable Riya Jay RN Unavailable [phone] Fani Llamas MD Unavailable Carmen Soni MD Primary Care Provider [phone] Encounter Details Date Type Department Care Team (Late st Contact Info) Description 05/13/2020 Procedure Pass [facility] - MRI [address] [facility], 6th [place] [address] Social History Tobacco Use Types Packs/Day Years [...] No 11/26/2015 11:15 AM EDT Jaz Avelar, COLLEGE AND CAREER COUNSELOR * Patient is blind or has serious [...] Contact Info) Description 12/24/2024 Procedure Pass MRI, [facility] General Imaging [address] [place] [address] 03/17/2025 12:45 PM EDT Appointment MRI, [facility] General Imaging [address] [place] [address] Bhargav Naik, SALEEM 75 [place] [address] [email or web address]. [facility] 03/17/2025 1:30 PM EDT Blood Draw [facility] for Neuro Oncology 32 [facility], 9th Floor, [address] [place] [address] Annamaria Hutchinson FNP 55 [facility] [address] 7 [place] [address] [email or web address] 03/17/2025 2:00 PM EDT Office Visit [facility] Oncology [address] [place] [address], 9th Floor, [address] [place] [address] Vilma Lentz MD, PhD [address] [place] [address] [address] [place] [address] [email or web address] 04/16/2025 10:00 AM EDT Office Visit [facility] Department of Neurology [address] [facility], 8th Floor, [address] [place] [address] Seth Ross MD [address] [place] [address] [place] [address] WINIFRED@[facility] documented as of this encounter Visit Diagnoses Not on filedocumented in this encounter Care Teams Laborer Filter Plant Relationship Specialty Start Date End Date Carmen Soni MD [address] [place] [address] PCP - General Internal Medicine 05/08/17 Vilma Lentz MD, PhD [address] [place] [address] [place] [address] [email or web address] Primary Oncologist Neurology 04/07/16 Riya Jay, RAVI [address] [place] [address] [email or web address] Primary Infusion Nurse 04/07/16 Fani Llamas MD [address] [place] [address] [email or web address] Radiation Oncology 04/10/16 documented as of this encounter Additional Source Comments The information contained in this document represents components of the legal health record. It is not the complete legal health record.[facility]
--- OUTSIDE RECORDS SUMMARY | 2025-03-10 11:52 | XMS_ITS | Encounter Summary ---
Author Organization [facility] Address [address] [place] [address] [place] [address] Phone Care Team Providers Care Civil Structural Designer Name Role Phone Vilma Lentz MD, PhD Unavailable Riya Jay RN Unavailable [phone]- [phone] Fani Llamas MD Unavailable Carmen Soni MD Primary Care Provider [phone] Encounter Details Date Type Department Care Team (Late st Contact Info) Description 07/27/2021 Procedure Pass MRI, [facility] Imaging - [address]ela [address] [place] [address] Social History Tobacco Use Types Packs/Day Years [...] No 11/26/2015 11:15 AM EDT Jaz Avelar, FINISHING FRAME RUNNER * Patient is blind or has serious [...] Contact Info) Description 12/24/2024 Procedure Pass MRI, [facility] General Imaging [address] [place] [address] 03/17/2025 12:45 PM EDT Appointment MRI, [facility] General Imaging [address] [place] [address] Bhargav Naik MBBS 75 [place] [address] [email or web address]. [facility] 03/17/2025 1:30 PM EDT Blood Draw [facility] for Neuro Oncology 32 [facility], 9th Floor, [address] [place] [address] Annamaria Hutchinson FNP 55 [facility] [address] [place] [address] [email or web address] 03/17/2025 2:00 PM EDT Office Visit [facility] for Neuro Oncology 32 [facility], 9th Floor, [address] [place] [address] Vilma Lentz MD, PhD [address] [place] [address] 9[place], [place] [address] [email or web address] 04/16/2025 10:00 AM EDT Office [facility] [place] of Neurology [address] [facility], 8th Floor, [address] [place] [address] Seth Ross MD [address] [place] [address] [place] [address] WINIFRED@[facility] documented as of this encounter Visit Diagnoses Not on filedocumented in this encounter Care Teams Civil Structural Designer Relationship Specialty Start Date End Date Carmen Soni MD [address] [place] [address] PCP - General Internal Medicine 05/08/17 Vilma Lentz MD, PhD [address] [place] [address] [email or web address] Primary Oncologist Neurology 04/07/16 Riya Jay RN [address] [place] [address] [email or web address] Primary Infusion Nurse 04/07/16 Fani Llamas MD [address] [place] [address] [facility] Radiation Oncology 04/10/16 documented as of this encounter Additional Source Comments The information contained in this document represents components of the legal health record. It is not the complete legal health record.[facility]
--- OUTSIDE RECORDS SUMMARY | 2025-03-10 11:52 | XMS_ITS | Encounter Summary ---
Author Organization [facility] Address [address] [place] [address] [address] [place] [address] Phone Care Team Providers Care Baffle Installer Name Role Phone Vilma Lentz MD, PhD Unavailable Riya Jay RN Unavailable [phone] Fani Llamas MD Unavailable Carmen Soni MD Primary Care Provider [phone] Encounter Details Date Type Department Care Team (Late st Contact Info) Description 01/17/2025 Ancillary Orders [facility] [address] [facility], 9th Floor, [address] [place] [address] Vilma Lentz MD, PhD [address] [facility] [address] [place] [address] [email or web address] Oligodendroglioma Social History Tobacco Use Types [...] of Assessment Author No 11/26/2015 11:15 AM aJz Arteaga CNP * Patient is blind or [...] [address] [place] [address] 03/17/2025 12:45 PM EDT Appointment MRI, [facility] [address] [place] [address] Bhargav Naik MBBS [address] [place] [address] [email or web address] 03/17/2025 1:30 PM EDT Blood Draw [facility] [address] [facility], 9th Floor, [address] [place] [address] Annamaria Hutchinson FNP [address] [place] [address] [address] [place], [place] [email or web address] 03/17/2025 2:00 PM EDT Office Visit [facility] [address] [facility], 9th Floor, [address] [place] [address] Vilma Lentz MD, PhD [address] [place] [address] [place] [address] [email or web address] 04/16/2025 10:00 AM EDT Office Visit [facility] [place] of [place]rology [address] [place] [address], 8th Floor, [address] [place] [address] Seth Ross MD [address] [place] [address] [place] [address] [email or web address] documented as of this encounter 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, unspecified site documented in this encounter Care Teams Baffle Installer Relationship Specialty Start Date End Date Carmen Soni MD [address] [place] [phone] PCP - General Internal Medicine 05/08/17 Vilma Lentz MD, PhD [address] [place] [id number] [email or web address] Primary Oncologist Neurology 04/07/16 Riya Jay RN [address] [place] [address] [email or web address] Primary Infusion Nurse 04/07/16 Fani Llamas MD [address] [place] [address] [email or web address] Radiation Oncology 04/10/16 documented as of this encounter Additional Source Comments The information contained in this document represents components of the legal health record. It is not the complete legal health record.[facility]
--- OUTSIDE RECORDS SUMMARY | 2025-03-10 11:52 | XMS_ITS | Encounter Summary ---
Author Organization [facility] Address [address] [place] [address] Phone Care Team Providers Care Records Assistant Name Role Phone Vilma Lentz MD, PhD Unavailable Riya Jay RN Unavailable [phone]- [phone] Fani Llamas MD Unavailable Carmen Soni MD Primary Care Provider [phone] Encounter Details Date Type Department Care Team (Late st Contact Info) Description 03/20/2023 Procedure Pass MRI, [facility] [address] [place] [address] Social History Tobacco Use Types Packs/Day Years [...] [address] [place] [address] 03/17/2025 12:45 PM EDT Appointment [facility] [address] [place] [address] Bhargav Naik MBBS [address] [place] [id number] [email or web address] 03/17/2025 1:30 PM EDT Blood Draw [facility] [address] [place] [address], 9th Floor, [address] [place] [address] Annamaria Hutchinson, JOHN [address] [place] [address] [address] [place] [address] [email or web address] 03/17/2025 2:00 PM EDT Office Visit [facility] [address] [facility], 9th Floor, [address] [place] [address] Vilma Lentz MD, PhD [address] [place] [address] [address] [place] [address] [email or web address] 04/16/2025 10:00 AM EDT Office [place] [facility] [place] of [place]rology [address] [place] [address], 8th Floor, [address] [place] [address] Seth Ross MD [address] [place] [address] [place] [address] [email or web address] documented as of this encounter Visit Diagnoses Not on filedocumented in this encounter Care Teams Records Assistant Relationship Specialty Start Date End Date Carmen Soni MD [address] [place] [phone] PCP - General Internal Medicine 05/08/17 Vilma Lentz MD, PhD [address] [place] [address] [address] [place] [address] [email or web address] Primary Oncologist Neurology 04/07/16 Riya Jay, RAVI [address] [place] [address] [email or web address] Primary Infusion Nurse 04/07/16 Fani Llamas MD [address] [place] [id number] [email or web address] Radiation Oncology 04/10/16 documented as of this encounter Additional Source Comments The information contained in this document represents components of the legal health record. It is not the complete legal health record.[facility]
--- OUTSIDE RECORDS SUMMARY | 2025-03-10 11:52 | XMS_ITS | Clinical Summary ---
Author Organization [facility] [address] [facility] Address [address] [place], [place] Phone Care Team Providers Care Fiberglass Bonding Machine Tender Name Role Phone Bree Dumont MD Primary Care Provider [phone] Allergies Active Allergy Reactions Criticality Noted Date Comments Levofloxacin 11/16/2016 Other Reaction(s): Rash/Dermatitis Medications cholecalcifero l (VITAMIN D-3) 1,250 mcg (50,000 unit) capsule Take 1 Capsule by mouth once a week. 4 Active divalproex (DEPAKOTE ER) 250 mg 24 hr tablet Take 5 Tabs by mouth daily. 1 Active hydrOXYzine HCL (ATARAX) 25 mg tablet TAKE 1 TABLET BY MOUTH THREE TIMES DAILY NEEDED FOR ANXIETY 4 Active incontinence pad, liner, disp (Bladder Control Pads) pad 5 Each by Does not apply route daily. RODNEY-99 5/day 150/month 11 refills 3 Active ketoconazole (NIZORAL) 2 % shampoo APPLY TO WET HAIR, LATHER RINSE AND REPEAT EVERY 3 TO 4 DAYS FOR 2 MONTHS 3 Active levETIRAcetam (KEPPRA) 750 mg tablet TAKE 2 TABLETS BY MOUTH TWICE DAILY 1 Active riboflavin (VITAMIN B2) 100 mg tablet TAKE 4 TABLETS(400 MG) BY MOUTH DAILY FOR MIGRAINE PREVENTION 0 Active miscellaneous medical supply misc MISC. DEVICES (FOLDING APPLICATION DEVELOPMENT TEAM LEAD) MIS: 1 Each by Does not apply route as needed for Other. 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 4 Active nortriptyline (PAMELOR) 25 mg capsule TAKE 1 CAPSULE BY MOUTH AT BEDTIME 90 capsule 5 Active atorvastatin (LIPITOR) 40 mg tablet Take 1 tablet (40 mg total) by mouth 1 (one) time each day. 90 tablet 1 5 Active acetaminophen (TYLENOL 8 HOUR) 650 mg 8 hr tablet Take 1 tablet (650 mg total) by mouth every 8 (eight) hours if needed for moderate pain or mild pain. for pain 90 tablet 1 5 Active polyethylene glycol (PEG) 17 gram/dose oral powder Take 17 g by mouth 1 (one) time each day. 510 g 1 5 Active calcium carbonate-devyn min D (Oysco 500/D) 500 mg-5 mcg (200 unit) per tablet Take 2 tablets by mouth 1 (one) time each day. 180 tablet 1 5 Active metFORMIN (GLUCOPHAGE) 1,000 mg tablet Take 1 tablet (1,000 mg total) by mouth 2 (two) times a day with meals. 180 tablet 1 5 Active acetaminophen (TYLENOL 8 HOUR) 650 mg 8 hr tablet Take 1 tablet (650 mg total) by mouth every 8 (eight) hours if needed for moderate pain or mild pain. for pain 90 tablet 1 5 02/29/20 25 Discontinu ed(Reorder ) polyethylene glycol (PEG) 17 gram/dose oral powder Take 17 g by mouth 1 (one) time each day. 510 g 1 5 02/29/20 25 Discontinu ed(Reorder ) calcium carbonate-devyn min D (Oysco 500/D) 500 mg-5 mcg (200 unit) per tablet Take 2 tablets by mouth 1 (one) time each day. 180 tablet 1 5 02/29/20 25 Discontinu ed(Reorder ) metFORMIN (GLUCOPHAGE) 1,000 mg tablet Take 1 tablet (1,000 mg total) by mouth 2 (two) times a day with meals. 180 tablet 5 02/29/20 25 Discontinu ed(Reorder ) Active Problems Problem Noted Date Diagnosed Date Stress incontinence 10/07/2022 Hyperlipidemia 05/16/2022 Large breasts 12/14/2021 Overview (05/10/2024): Last Assessment & Plan: Patient has been referred to physical therapy by her PCP. I have placed a referral today to the breast center for counseling regarding breast reduction. I encouraged the patient to continue with healthy diet and exercise to continue with weight loss. 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 Encounters Date Type Department Care Team Description 01/23/2025 Telephone Adult Medicine [address] [address] [place] 01/22/2025 12:45 PM EDT Office Visit Adult Medicine [address] [place] [address] Eric Colvin PA Morbid obesity with BMI of 40.0-44.9, adult ([facility] V24, [facility] V28) (Primary Dx); Hyperlipidemia, unspecified hyperlipidemia type; Anxiety and depression from Last 3 Months Immunizations Name Administration Dates Next Due [employer] SARS-CoV-2 COVID -19, vector-nr, rS-Ad26, preservative free 11/18/2020 Tdap Tetanus diptheria acell ular pertussis (Boostrix; Adacel) 7yo and older 10/01/2021,05/19/2019 Surgical History Surgery Date Site/Laterality Comments OTHER SURGICAL HISTORY 11/2015 PROCEDURE: IN CRANIOT TEMPORAL LOBE W/O ELECTROCORTICOGRAPHY; COMMENT: brain tumor CHOLECYSTECTOMY PROCEDURE: HISTORICAL CHOLECYSTECTOMY; COMMENT: 22 yrs ago OTHER SURGICAL HISTORY 06/24/2016 PROCEDURE: ---- OTHER ----; COMMENT: Portocath placement, right Medical History Medical History Date Comments History of DVT (deep vein thrombosis) 11/02/2016 DX:History of DVT (deep vein thrombosis); COMMENT: Post op 11/2015, right DVT on lifetime LMWH (prophylactic dose, secondary to h/o prolonged menses) per oncology. 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 Used to follow with ([facility]) S/p L Frontal lobe resection 12/05/2015, RXT 04/08/2016 and last dose of chemotherapy 05/2017 Complicated by seizures and DVT, depression Family History Medical History Relation Name Comments Thyroid disease Daughter Other: dialysis Father Thyroid disease Mother Breast cancer Neg Hx Colon cancer Neg Hx Ovarian cancer Neg Hx Relation Name Status Comments Daughter Father Alive Mother Alive Social History Tobacco Use Types Packs/Day Years Used Date Smoking Tobacco: Never Smokeless Tobacco: Never Tobacco Cessation:Counseling Given: Not Answered Alcohol Use Standard Drinks/Week Comments Not Currently 0 (1 standard drink = 0.6 oz pur e alcohol) Housing Instability Answer Date Recorde d Are you worried that in the next 2 months you may not have stable housing? No 11/12/2024 Food Access & Nutrition Answer Date Rec orded Do you have access to a vari ety of food including fruits and vegetables? Yes 11/12/2024 Access to Healthcare Answer Date Record ed Within the last 3 months, ho w many times did you visit the emergency department for your medical care? 0 11/12/2024 Health Literacy Answer Date Recorded How often do you need to hav e someone help you when you read instructions, pamphlets, or other written material from your doctor or pharmacy? Sometimes 11/12/2024 Caregiver: How often do you need to have someone help you when you read instructions, pamphlets, or other written material from your doctor or pharmacy? Not on file 11/12/2024 Financial Risk Answer Date Recorded How hard is it for you to pa y for the very basics like food, housing, medical care, and air conditioning / heating? Not asked 11/12/2024 Transportation Answer Date Recorded Has the lack of transportati on kept you from meetings, work, or from getting things needed for daily living? Not asked 2024 Has the lack of transportati on kept you from medical appointments or from getting medications? Not asked 11/12/2024 Social Isolation Answer Date Recorded How often do you feel lonely or isolated from those around you? Not asked 11/12/2024 Food Risk Answer Date Recorded Within the past 12 months we worried whether our food would run out before we got money to buy more. Not asked 11/12/2024 Within the past 12 months th e food we bought just didn't last and we didn't have money to get more. Not asked 11/12/2024 Dependent Care Answer Date Recorded Do you need help finding or paying for care for your loved ones. For example, early childhood assistant or elderly care for an older adult? No 11/12/2024 Education Answer Date Recorded Do you think completing more education or training, like finishing a GED, going to college, or learning a trade, would be helpful for you? No 11/12/2024 Employment and Income Answer Date Recor ded During the last four weeks, have you been actively looking for work? No 11/12/2024 Living Situation Answer Date Recorded What is your living situation? 0 11/12/2024 Comments No Sex and Gender Information Value Date Recorded Sex Assigned at Not on file Legal Sex Female 12:40 PM EST Gender Identity Not on file Sexual Orientation Not on file Obstetrics History Last Filed Vital Signs Vital Sign Reading Time Taken Comments Blood Pressure 118/72 01/22/2025 12:47 PM EDT Pulse 70 01/22/2025 12:47 PM EDT Temperature 36.4 C (97.6 F) 01/22/2025 12:47 PM EDT Respiratory Rate 14 01/22/2025 12:47 PM EDT Oxygen Saturation - - Inhaled Oxygen Concentration - - Weight 109 kg (241 lb) 01/22/2025 12:47 PM EDT Height 162.6 cm (5' 4 ) 01/22/2025 12:47 PM EDT Body Mass Index 41.37 01/22/2025 12:47 PM EDT Plan of Treatment Upcoming Encounters Date Type Department Care Team (Late st Contact Info) Description 05/28/2025 8:30 AM EST Office Visit Adult Medicine [address] [phone] Bree Dumont MD [address] [place] [address] 07/17/2025 3:00 PM EST Consult Bariatric Surgery - [address] [place] [address] [place] Ren[place] MD [address] [place] [address] Health Maintenance Due Date Last Done Comments Hepatitis B Vaccines (1 of 3 - 19+ 3-dose series) 1989 HIV Screening 05/28/2022 Medicare Annual Wellness Visit 05/28/2022 Influenza Vaccine (#1) 2025 Cervical Cancer Screening: Pap Smear 06/18/2025 04/24/2018, 04/24/2018, 04/24/2018 Postponed from 04/24/2021 (Patient Does Not Have Time) Social Influencers of Health Screening 11/12/2025 11/12/2024 Zoster Vaccines (1 of 2) 11/13/2025 Pos tponed from 1989 (Supply/Drug Shortage) Breast Cancer Screening 01/21/2026 01/22/20 24, 01/22/2024, 10/26/2022, Additional history exists Cholesterol Screening (Lipid Panel) 07/10/2029 07/10/2024, 12/26/2023, 12/26/2023 DTaP,Tdap,and Td Vaccines (3 - Td or Tdap) 10/02/2031 10/01/2021, 05/19/2019 Colorectal Cancer Screening: Colonoscopy 07/04/2033 07/04/2023 COVID-19 Vaccine Discontinued 11/18/2020 Hepatitis C Screening Completed 05/16/2022 Depression Screening Completed 11/12/2024, 01/05/20 24 HIB Vaccines Aged Out No longer eligi ble based on patient's age to complete this topic HPV Vaccines Aged Out No longer eligi ble based on patient's age to complete this topic Hepatitis A Vaccines Aged Out No long er eligible based on patient's age to complete this topic IPV Vaccines Aged Out No longer eligi ble based on patient's age to complete this topic MMR Vaccines Aged Out No longer eligi ble based on patient's age to complete this topic Meningococcal ACWY Vaccine Aged Out N o longer eligible based on patient's age to complete this topic Meningococcal B Vaccine Aged Out No l onger eligible based on patient's age to complete this topic Pneumococcal Vaccine: 50+ Years Discontinued RSV Immunization Patients Under 20 months Aged Out No longer eligible based on patient's age to complete this topic Varicella Vaccines Aged Out No longer eligible based on patient's age to complete this topic Procedures Procedure Name Priority Date/Time Associated Diagnosis Comments LIPID PANEL WITH REFLEX TO DIRECT LDL Routine 07/10/2024 11:16 AM EST Mixed hyperlipidemia SCREENING MAMMOGRAPHY BI 2-VIEW BREAST INC CAD Routine 01/22/2024 12:04 PM EDT Encounter for other screening for malignant neoplasm of breast DEPRESSION SCREENING Routine 01/05/2024 HEPATITIS C SCREENING Routine 05/16/2022 PAP SMEAR Routine 04/24/2018 from Last 3 Months or Most Recently Relevant to Health Maintenance Results * (ABNORMAL) Lipid panel with reflex to direct LDL (07/10/2024 11:16 AM EST) Cholesterol 188 0 - 200 mg/dL LAB CHEMISTRY METHOD 07/10/2024 4:03 PM EST [facility] Triglycerides 114 0 - 150 mg/dL LAB CHEMISTRY METHOD 07/10/2024 4:03 PM [facility] HDL 64 >=40 mg/dL LAB CHEMISTRY METHOD 07/10/2024 4:03 PM [facility] LDL Calculated 101(H) 0 - 100 mg/dL LAB CHEMISTRY METHOD 07/10/2024 4:03 PM EST [facility] VLDL Cholesterol Yobany 22.8 mg/dL LAB CHEMISTRY METHOD 07/10/2024 4:03 PM [facility] Non HDL Chol. (LDL+VLDL) 124 <145 mg/dL LAB CHEMISTRY METHOD 07/10/2024 4:03 PM [facility] Chol/HDL Ratio 2.9 0.0 - 4.4 LAB CHEMISTRY METHOD 07/10/2024 4:03 PM [facility] Blood Venous blood specimen / Unknown Venipuncture / Unknown 07/10/2024 11:16 AM EST 07/10/2024 11:16 AM EST us Bree Dumont MD LAB BLOOD ORDERABLES Final Resul t [facility] [address] [place] [address], * SCREENING MAMMOGRAPHY BI 2-VIEW BREAST INC CAD (01/22/2024 12:04 PM EDT) Anatomical Region Laterality Modality Radiographic Christen ging 10/26/2022 3:31 PM EDT Narrative 01/22/2024 6:02 PM EDT This is a summary report. The complete report is available in the patient's medical record. If you cannot access the medical record, please contact the sending organization for a detailed fax or copy. Study: SCREENING MAMMOGRAPHY BI 2-VIEW BREAST INC CAD Technique: Bilateral full-field digital screening mammography is obtained and read in conjunction with computer aided detection. Tomosynthesis as well as 2D C-View imaging were obtained. Comparison: Comparison made to multiple priors, most recent October 26, 2022, and most remote December 10, 2016. Breast composition: There are scattered areas of fibroglandular density. Bilateral breasts: No significant masses, suspicious calcifications or other abnormalities are seen in either breast. IMPRESSION: Impression: Bilateral breasts: Negative, no specific mammographic evidence of malignancy. Normal interval follow-up is recommended in 12 months. BI-RADS: Category 1: Negative Procedure Note Susie Gautam MD - 04/03/2024 This is a summary report. The complete report is available in thepatient's medical record. If you cannot access the medical record, pleasecontact the sending organization for a detailed fax or copy. Study: SCREENING MAMMOGRAPHY BI 2-VIEW BREAST INC CAD Technique: Bilateral full-field digital screening mammography is obtainedand read in conjunction with computer aided detection. Tomosynthesis aswell as 2D C-View imaging were obtained. Comparison: Comparison made to multiple priors, most recent October 26, 2022,and most remote December 10, 2016. Breast composition: There are scattered areas of fibroglandular density. Bilateral breasts: No significant masses, suspicious calcifications orother abnormalities are seen in either breast. IMPRESSION: Impression: Bilateral breasts: Negative, no specific mammographic evidence ofmalignancy. Normal interval follow-up is recommended in 12 months. BI-RADS: Category 1: Negative us Bree Dumont MD IMG XR PROCEDURES Final Result * Depression Screening (01/05/2024) Depression Screening Abstracted Historical Provider HEALTH MAINTENANCE Final Result * Hepatitis C Screening (05/16/2022) Hepatitis C Screening Abstracted Historical Provider HEALTH MAINTENANCE Final Result * Pap smear (04/24/2018) 04/24/2018 Narrative HISTORICAL TESTING LAB RESULTING AGENCY - 05/02/2018 1:21 PM EST [id number] THINPREP PAP, IMAGED: NEGATIVE FOR SQUAMOUS INTRAEPITHELIAL LESION AND MALIGNANCY . REACTIVE CELLULAR CHANGES. ATROPHY. ABUNDANT RED BLOOD CELLS ARE PRESENT. ABUNDANT PARTIALLY OBSCURING ACUTE INFLAMMATORY CELLS ARE PRESENT. IZABELLA PENA(ASCP) (CASE SCREENED 04 26 2018) UGO CALHOUN M.D. , PATHOLOGIST (CASE ELECTRONICALLY SIGNED 04 27 2018) RESULT OF APTIMA HIGH RISK HPV ASSAY: HIGH RISK HPV: NEGATIVE (SEROTYPES 16,18,31,33,35,39,45,51,52,56,58,59,66,68) COMPLETED ON 2018-04-26 ADEQUACY: SATISFACTORY ENDOCERVICAL/TRANSFORMATION ZONE COMPONENT PRESENT. SOURCE: THINPREP PAP HPV ANY DX: REFLEX 16 AND 18, CERVICAL, IMAGED: CLINICAL INFORMATION: HPV ANY DIAGNOSIS. Z12.4, Z01.419, MENOPAUSE, PAP HX: NEGATIVE Poly Blankenship MD LAB CYTOLOGY ORDERABLES Final Result HISTORICAL TESTING LAB RESULTING AGENCY from Last 3 Months or Most Recently Relevant to Health Maintenance Insurance [employer] MEDICARE Member Subscriber Plan / Payer (Ef fective 2020-Present) Name:ANNALISE AZAR Relation to Subscriber:Self Name:Annalise Azar Payer ID:[id number] Group ID:[id number] Type:Not on file Address: [place] [address] [address] [id number] Care Teams Fiberglass Bonding Machine Tender Relationship Specialty Start Date End Date Bree Dumont MD [address] [place] [phone] PCP - General Internal Medicine 01/24/22
--- OUTSIDE RECORDS SUMMARY | 2025-03-10 11:52 | XMS_ITS | Encounter Summary ---
Author Organization Located Within [facility] Address [address] [place] [address] [address] [place] [address] Phone Care Team Providers Care Paper Production Engineer Name Role Phone Vilma Lentz MD, PhD Unavailable Riya Jay RN Unavailable [phone] Fani Llamas MD Unavailable Carmen Soni MD Primary Care Provider [phone] Encounter Details Date Type Department Care Team (Late st Contact Info) Description 01/21/2025 Ancillary Orders [facility] 32 [facility], 9th Floor, [address] [place] [address] Vilma Lentz MD, PhD 55 [facility] [address] [place] [address] [email or web address] Oligodendroglioma Social History Tobacco Use [...] [address] [place] [address] 03/17/2025 12:45 PM EDT Appointment MRI, [facility] [address] [place] [address] Bhargav Naik MBBS [address] [place] [address] [email or web address] 03/17/2025 1:30 PM EDT Blood Draw [facility], 9th Floor, [address] [place] [address] Annamaria Hutchinson FNP [address] [place] [address] [address] [place], [place] [email or web address] 03/17/2025 2:00 PM EDT Office Visit [facility] [address] [facility], 9th Floor, [address] [place] [address] Vilma Lentz MD, PhD [address] [place] [address] [address] [address] [email or web address] 04/16/2025 10:00 AM EDT Office Visit [facility] Department of Neurology [address] [place] [address], 8th Floor, [address] [place] [address] Seth Ross MD [address] [place] [address] [place] [address] [email or web address] documented as of this encounter 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, unspecified site documented in this encounter Care Teams Paper Production Engineer Relationship Specialty Start Date End Date Carmen Soni MD [address] [place] [address] PCP - General Internal Medicine 05/08/17 Vilma Lentz MD, PhD [address] [place] [address] [email or web address] Primary Oncologist Neurology 04/07/16 Riya Jay RN 55 [place] [address] [email or web address] Primary Infusion Nurse 04/07/16 Fani Llamas MD [address] [place] [address] [email or web address] Radiation Oncology 04/10/16 documented as of this encounter Additional Source Comments The information contained in this document represents components of the legal health record. It is not the complete legal health record.[facility]
--- OUTSIDE RECORDS SUMMARY | 2025-03-10 11:52 | XMS_ITS | Encounter Summary ---
Author Organization [facility] Address [address] [place] [address] [address] [place] [address] Phone Care Team Providers Care Chronic Care Nurse Name Role Phone Vilma Lentz MD, PhD Unavailable Riya Jay RN Unavailable [phone] Fani Llamas MD Unavailable Carmen Soni MD Primary Care Provider [phone] Encounter Details Date Type Department Care Team (Late st Contact Info) Description 01/28/2025 Ancillary Orders [facility]cology [address] [facility], 9th Floor, [address] [place] [address] Vilma Lentz MD, PhD 55 [facility] [address] [place] [address] [email or web address] Oligodendroglioma Social History Tobacco Use [...] [address] [place] [address] 03/17/2025 12:45 PM EDT Appointment MRI, [facility] [address] [place] [address] Bhargav Naik MBBS [address] [place] [address] [email or web address] 03/17/2025 1:30 PM EDT Blood Draw [facility] [address] [facility], 9th Floor, [address] [place] [address] Annamaria Hutchinson FNP [address] [place] [address] [address] [place], [place] [email or web address] 03/17/2025 2:00 PM EDT Office [facility] [address] [facility], 9th Floor, [address] [place] [address] Vilma Lentz MD, PhD [address] [place] [address] [place], [place] [address] [email or web address] 04/16/2025 10:00 AM EDT Office Visit [facility] Department of Neurology [address] [place] [address], 8th Floor, [address] [place] [address] Seth Ross MD [address] [place] [address] [place] [address] WINIFRED@[email or web address] documented as of this encounter 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, unspecified site documented in this encounter Care Teams Chronic Care Nurse Relationship Specialty Start Date End Date Carmen Soni MD [address] [place] [address] PCP - General Internal Medicine 05/08/17 Vilma Lentz MD, PhD [address] [place] [address] [email or web address] Primary Oncologist Neurology 04/07/16 Riya Jay RN 55 [place] [address] [email or web address] Primary Infusion Nurse 04/07/16 Fani Llamas MD [address] [place] [address] [email or web address] Radiation Oncology 04/10/16 documented as of this encounter Additional Source Comments The information contained in this document represents components of the legal health record. It is not the complete legal health record.[facility]
--- OUTSIDE RECORDS SUMMARY | 2025-03-10 11:52 | XMS_ITS | Encounter Summary ---
Author Organization [facility] Address [address] [place] [address] [address] [place] [address] Phone Care Team Providers Care Wet Press Tender Name Role Phone Vilma Lentz MD, PhD Unavailable Riya Jay RN Unavailable [phone] Fani Llamas MD Unavailable Carmen Soni MD Primary Care Provider [phone] Encounter Details Date Type Department Care Team (Late st Contact Info) Description 01/07/2025 Ancillary Orders [facility] 32 [facility], 9th Floor, [address] [place] [address] Vilma Lentz MD, PhD 55 [facility] [address] [place] [address] [email or web address] Oligodendroglioma Social History Tobacco Use Types Packs/Day [...] [address] [place] [address] 03/17/2025 12:45 PM EDT Appointment MRI, [facility] [address] [place] [address] Bhargav Naik MBBS [address] [place] [address] [email or web address] 03/17/2025 1:30 PM EDT Blood Draw [facility] for [facility] 32 [facility], 9th Floor, [address] [place] [address] Annamaria Hutchinson FNP [address] [place] [address] [address] [place], [place] [email or web address] 03/17/2025 2:00 PM EDT Office Visit [facility] 32 [facility], 9th Floor, [address] [place] [address] Vilma Lentz MD, PhD [address] [place] [address] 9[place] [address] [email or web address] 04/16/2025 10:00 AM EDT Office Visit [facility] Department of Neurology [address] [place] [address], 8th Floor, [address] [place] [address] Seth Ross MD [address] [place] [address] [place] [address] [email or web address] documented as of this encounter 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, unspecified site documented in this encounter Care Teams Wet Press Tender Relationship Specialty Start Date End Date Carmen Soni MD [address] [place] [address] PCP - General Internal Medicine 05/08/17 Vilma Lentz MD, PhD [address] [place] [address] [email or web address] Primary Oncologist Neurology 04/07/16 Riya Jay RN 55 [place] [address] [email or web address] Primary Infusion Nurse 04/07/16 Fani Llamas MD [address] [place] [address] [facility] Radiation Oncology 04/10/16 documented as of this encounter Additional Source Comments The information contained in this document represents components of the legal health record. It is not the complete legal health record.[facility]
--- OUTSIDE RECORDS SUMMARY | 2025-03-10 11:52 | XMS_ITS | Encounter Summary ---
Author Organization [facility] Address [address] [place] [address] [address] [place] [address] Phone Care Team Providers Care Latin Dance Instructor Name Role Phone Vilma Lentz MD, PhD Unavailable Riya Jay RN Unavailable [phone] Fani Llamas MD Unavailable Carmen Soni MD Primary Care Provider [phone] Encounter Details Date Type Department Care Team (Late st Contact Info) Description 01/24/2025 Ancillary Orders [facility] for Neuro Oncology 32 [facility], 9th Floor, [address] [place] [address] Vilma Lentz MD, PhD 55 [facility] [address] [place] [address] [email or web address] Oligodendroglioma Social History Tobacco Use Types Packs/Day [...] [address] [place] [address] 03/17/2025 12:45 PM EDT Appointment MRI, [facility] [address] [place] [address] Bhargav Naik MBBS [address] [place] [address] [email or web address] 03/17/2025 1:30 PM EDT Blood Draw [facility] 32 [facility], 9th Floor, [address] [place] [address] Annamaria Hutchinson FNP [address] [place] [address] [address] [place], [place] [email or web address] 03/17/2025 2:00 PM EDT Office Visit [facility] 32 [facility], 9th Floor, [address] [place] [address] Vilma Lentz MD, PhD [address] [place] [address] 9[place] [address] [email or web address] 04/16/2025 10:00 AM EDT Office Visit [facility] Department of Neurology [address] [place] [address], 8th Floor, [address] [place] [address] Seth Ross MD [address] [place] [address] [place] [address] [email or web address] documented as of this encounter 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, unspecified site documented in this encounter Care Teams Latin Dance Instructor Relationship Specialty Start Date End Date Carmen Soni MD [address] [place] [address] PCP - General Internal Medicine 05/08/17 Vilma Lentz MD, PhD [address] [place] [address] [email or web address] Primary Oncologist Neurology 04/07/16 Riya Jay RN 55 [place] [address] [email or web address] Primary Infusion Nurse 04/07/16 Fani Llamas MD [address] [place] [address] [email or web address] Radiation Oncology 04/10/16 documented as of this encounter Additional Source Comments The information contained in this document represents components of the legal health record. It is not the complete legal health record.[facility]
--- OUTSIDE RECORDS SUMMARY | 2025-03-10 11:52 | XMS_ITS | Encounter Summary ---
Author Organization [facility] Address [address] [place] [address] [place] [address] Phone Care Team Providers Care Concrete Analyst Name Role Phone Vilma Lentz MD, PhD Unavailable Riya Jay RN Unavailable [phone] Fani Llamas MD Unavailable Carmen Soni MD Primary Care Provider [phone] Encounter Details Date Type Department Care Team (Late st Contact Info) Description 01/21/2025 Documentation [facility] [address] [place] [address] Ruth Orellana, RN [address] [place] [phone] [email or web address] Social History Tobacco Use Types Packs/Day Years [...] AM FRIDAT Jaz Avelar CNP * Patient is blind [...] Jaz Arteaga CNP documented in this encounter Progress Notes * Ruth Orellana RN - 01/21/2025 11:33 AM EDT Images from the original note were not included. Ambulatory Nurse Case Management Note Patient Name: Annalise Forde Patient Address: [address] [place], [place] [address] Telephone Information: Work Phone Not on file. VNA referral sent to [facility] [place] [place] (ph: [phone]; fax: [phone]) for SN & OT. Acceptance /SOC pending clinical review and insurance verification. 01/21/25: Addendum - [facility] declined- they don't take insurance, also go a verbal no from [facility]- they don't cover the area, and [facility]- they don't have availability. Will continue to search. 01/22/25: Addendum: I submitted the VNA referral to [facility] in [place] ( ; fax: [phone]) They take her insurance and have availability for both services requested. Will check back to verify and for SOC date. documented in this encounter Plan of Treatment Upcoming Encounters Date Type Department Care Team (Late st Contact Info) Description 12/24/2024 Procedure Pass MRI, [facility] General Imaging [address] [place] [address] 03/17/2025 12:45 PM EDT Appointment MRI, [facility] General Imaging [address] [place] [address] Bhargav Naik MBBS 75 [place] [address] [email or web address] 03/17/2025 1:30 PM EDT Blood Draw [facility] for [facility] 32 [facility], 9th Floor, [address] [place] [address] Annamaria Hutchinson FNP 55 [facility] [address] [place] [address] [email or web address] 03/17/2025 2:00 PM EDT Office Visit [facility] 32 [facility], 9th Floor, [address] [place] [address] Vilma Lentz MD, PhD [address] [place] [address] [address] [place] [address] [email or web address] 04/16/2025 10:00 AM EDT Office Visit [facility] Department of Neurology [address] [place] [address], 8th Floor, [address] [place] [address] Seth Ross MD [address] [place] [address] [place] [address] [email or web address] documented as of this encounter Visit Diagnoses Not on filedocumented in this encounter Care Teams Concrete Analyst Relationship Specialty Start Date End Date Carmen Soni MD [address] [place] [address] PCP - General Internal Medicine 05/08/17 Vilma Lentz MD, PhD [address] [place] [address] [place], [place] [address] [email or web address] Primary Oncologist Neurology 04/07/16 Riya Jay, RAVI [address] [place] [address] [email or web address] Primary Infusion Nurse 04/07/16 Fani Llamas MD [address] [place] [address] [email or web address] Radiation Oncology 04/10/16 documented as of this encounter Additional Source Comments The information contained in this document represents components of the legal health record. It is not the complete legal health record.[facility]
--- OUTSIDE RECORDS SUMMARY | 2025-03-10 11:52 | XMS_ITS | Encounter Summary ---
Author Organization [facility] Address [address] [place] [address] [place] [address] Phone Care Team Providers Care Solutions Engineer Name Role Phone Vilma Lentz MD, PhD Unavailable Riya Jay RN Unavailable [phone] Fani Llamas MD Unavailable Carmen Soni MD Primary Care Provider [phone] Encounter Details Date Type Department Care Team (Late st Contact Info) Description 09/19/2017 Procedure Pass [facility] Imaging [address] [place] [address] Social History Tobacco Use Types Packs/Day Years [...] Contact Info) Description 12/24/2024 Procedure Pass MRI, [facility] General Imaging [address] [place] [address] 03/17/2025 12:45 PM EDT Appointment MRI, [facility] General Imaging [address] [place] [address] Bhargav Naik MBBS [address] [place] [address] [email or web address] 03/17/2025 1:30 PM EDT Blood Draw [facility] for [facility] Oncology [address] [facility], 9th Floor, [address] [place] [address] Annamaria Hutchinson, JOHN 55 [facility] [address] [place] [address] [email or web address] 03/17/2025 2:00 PM EDT Office Visit [facility] for [facility] [address] [facility], 9th Floor, [address] [place] [address] Vilma Lentz MD, PhD [address] [place] [address] [address] [place] [address] [email or web address] 04/16/2025 10:00 AM EDT Office Visit [facility] Department of Neurology [address] [place] [address], 8th Floor, [address] [place] [address] Seth Ross MD [address] [place] [address] [place] [address] WINIFRED@[facility] documented as of this encounter Visit Diagnoses Not on filedocumented in this encounter Care Teams Solutions Engineer Relationship Specialty Start Date End Date Carmen Soni MD [address] [place] [address] PCP - General Internal Medicine 05/08/17 Vilma Lentz MD, PhD [address] [place] [address] [address] [place] [address] [email or web address] Primary Oncologist Neurology 04/07/16 Riya Jay, RAVI [address] [place] [address] [email or web address] Primary Infusion Nurse 04/07/16 Fani Llamas MD [address] [place] [address] [email or web address] Radiation Oncology 04/10/16 documented as of this encounter Additional Source Comments The information contained in this document represents components of the legal health record. It is not the complete legal health record.[facility]
--- OUTSIDE RECORDS SUMMARY | 2025-03-10 11:52 | XMS_ITS | Encounter Summary ---
Author Organization [facility] Address [address] [place] [address] [address] [place] [address] Phone Care Team Providers Care Conflicts Analyst Name Role Phone Vilma Lentz MD, PhD Unavailable Riya Jay RN Unavailable [phone] Fani Llamas MD Unavailable Carmen Soni MD Primary Care Provider [phone] Encounter Details Date Type Department Care Team (Late st Contact Info) Description 12/27/2024 Ancillary Orders [facility] for Neuro Oncology 32 [facility], 9th Floor, [address] [place] [address] Vilma Lentz MD, PhD 55 [facility] [address] [place] [address] [email or web address] Oligodendroglioma Social History Tobacco Use [...] [address] [place] [address] 03/17/2025 12:45 PM EDT Appointment [facility], [facility] [address] [place] [address] Bhargav Naik MBBS [address] [place] [address] [email or web address] 03/17/2025 1:30 PM EDT Blood Draw [facility] for Neuro Oncology 32 [facility], 9th Floor, [address] [place] [address] Annamaria Hutchinson FNP [address] [place] [address] [address] [place], [place] [email or web address] [place] [place] 03/17/2025 2:00 PM EDT Office Visit [facility] for Neuro Oncology 32 [facility], 9th Floor, [address] [place] [address] Vilma Lentz MD, PhD [address] [place] [address] [place] [address] [email or web address] 04/16/2025 10:00 AM EDT Office Visit [facility] Department of Neurology [address] [place] [address], 8th Floor, [address] [place] [address] Seth Ross MD [address] [place] [address] [place] [address] WINIFRED@[facility] documented as of this encounter 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 Primary Oncologist Neurology 04/07/16 Riya Jay RN 55 [place] [address] [email or web address] [place] [place] Primary Infusion Nurse 04/07/16 Fani Llamas MD [address] [place] [address] [facility] Radiation Oncology 04/10/16 documented as of this encounter Additional Source Comments The information contained in this document represents components of the legal health record. It is not the complete legal health record.[facility]
--- OUTSIDE RECORDS SUMMARY | 2025-03-10 11:52 | XMS_ITS | Encounter Summary ---
Author Organization [facility] Address [address] [place] [address] [place] [address] Phone Care Team Providers Care Fabrication Operator Name Role Phone Vilma Lentz MD, PhD Unavailable Riya Jay RN Unavailable + [phone] Fani Llamas MD Unavailable Carmen Soni MD Primary Care Provider [phone] Encounter Details Date Type Department Care Team (Late st Contact Info) Description 08/13/2024 Procedure Pass [facility] - MRI, Main [address] [address] Social History Tobacco Use Types Packs/Day Years [...] [address] [place] [address] 03/17/2025 12:45 PM EDT Appointment MRI, [facility] [address] [place] [address] Bhargav Naik MBBS [address] [place] [address] [email or web address] 03/17/2025 1:30 PM EDT Blood Draw [facility] [address] [place] [address], 9th Floor, [address] [place] [address] Annamaria Hutchinson, JOHN 55 [facility] [address] [place] [address] [email or web address] 03/17/2025 2:00 PM EDT Office Visit [facility] [address] [facility], 9th Floor, [address] [place] [address] Vilma Lentz MD, PhD [address] [facility] [address] [place] [address] [email or web address] 04/16/2025 10:00 AM EDT Office Visit [facility] Department of Neurology [address] [place] [address], 8th Floor, [address] [place] [address] Seth Ross MD [address] [place] [address] [place] [address] [email or web address] documented as of this encounter Visit Diagnoses Not on filedocumented in this encounter Care Teams Fabrication Operator Relationship Specialty Start Date End Date Carmen Soni MD [address] [place] [address] PCP - General Internal Medicine 05/08/17 Vilam Lentz MD, PhD [address] [place] [address] [address] [place] [address] [email or web address] Primary Oncologist Neurology 04/07/16 Riya Jay, RAVI [address] [place] [address] [email or web address] Primary Infusion Nurse 04/07/16 Fani Llamas MD [address] [place] [address] [email or web address] Radiation Oncology 04/10/16 documented as of this encounter Additional Source Comments The information contained in this document represents components of the legal health record. It is not the complete legal health record.[facility]
--- OUTSIDE RECORDS SUMMARY | 2025-03-10 11:52 | XMS_ITS | Encounter Summary ---
Author Organization [facility] Address [address] [place] [address] [place] [address] Phone Care Team Providers Care City Planning Engineer Name Role Phone Vilma Lentz MD, PhD Unavailable Riya Jay RN Unavailable [phone]- [phone] Fani Llamas MD Unavailable Carmen Soni MD Primary Care Provider [phone] Encounter Details Date Type Department Care Team (Late st Contact Info) Description 09/19/2017 Procedure Pass [facility] 2 [address] [facility], 2nd [place] [address] Social History Tobacco Use Types Packs/Day Years [...] Contact Info) Description 12/24/2024 Procedure Pass MRI, [facility] General Imaging [address] [place] [address] 03/17/2025 12:45 PM EDT Appointment MRI, [facility] General Imaging [address] [place] [address] Bhargav Naik MBBS [address] [place] [address] [email or web address] 03/17/2025 1:30 PM EDT Blood Draw [facility] [address] [facility], 9th Floor, [address] [place] [address] Annamaria Hutchinson FNP 55 [facility] [address] [place] [address] [email or web address] 03/17/2025 2:00 PM EDT Office Visit [facility] [address] [facility], 9th Floor, [address] [place] [address] Vilma Lentz MD, PhD [address] [place] [address] [place], [place] [address] [email or web address] 04/16/2025 10:00 AM EDT Office Visit [facility] Department of Neurology [address] [place] [address], 8th Floor, [address] [place] [address] Seth Ross MD [address] [place] [address] [place] [address] [email or web address] documented as of this encounter Visit Diagnoses Not on filedocumented in this encounter Care Teams City Planning Engineer Relationship Specialty Start Date End Date Carmen Soni MD [address] [place] [address] PCP - General Internal Medicine 05/08/17 Vilma Lentz MD, PhD [address] [place] [address] [email or web address] Primary Oncologist Neurology 04/07/16 Riya Jay RN [address] [place] [address] [email or web address] Primary Infusion Nurse 04/07/16 Fani Llamas MD [address] [place] [address] [email or web address] Radiation Oncology 04/10/16 documented as of this encounter Additional Source Comments The information contained in this document represents components of the legal health record. It is not the complete legal health record.[facility]
--- OUTSIDE RECORDS SUMMARY | 2025-03-10 11:52 | XMS_ITS | Encounter Summary ---
Author Organization [facility] [place] Address [address] [place] [address] [place] [address] Phone Care Team Providers Care International Exchange Coordinator Name Role Phone Vilma Lentz MD, PhD Unavailable Riya Jay RN Unavailable [phone]- [phone] Fani Llamas MD Unavailable Carmen Soni MD Primary Care Provider [phone] Encounter Details Date Type Department Care Team (Late st Contact Info) Description 03/22/2021 Procedure Pass MRI, [facility] Imaging - [place] [address] [place] [address] Social History Tobacco Use Types Packs/Day Years [...] No 11/26/2015 11:15 AM EDT Jaz Avelar, ACCOUNTS RECEIVABLE ANALYST * Patient is blind or has serious [...] Contact Info) Description 12/24/2024 Procedure Pass MRI, [facility] General Imaging [address] [place] [address] 03/17/2025 12:45 PM EDT Appointment MRI, [facility] General Imaging [address] [place] [address] Bhargav Naik MBBS [address] [place] [address] [email or web address] 03/17/2025 1:30 PM EDT Blood Draw [facility] [address] [facility], 9th Floor, [address] [place] [address] Annamaria Hutchinson FNP 55 [facility] [address] [place] [address] [email or web address] 03/17/2025 2:00 PM EDT Office Visit [facility] [address] [facility], 9th Floor, [address] [place] [address] Vilma Lentz MD, PhD [address] [place] [address] [place] [address] [email or web address] 04/16/2025 10:00 AM EDT Office Visit [facility] Department of Neurology [address] [facility], 8th Floor, [address] [place] [address] Seth Ross MD [address] [place] [address] [place] [address] [email or web address] documented as of this encounter Visit Diagnoses Not on filedocumented in this encounter Care Teams International Exchange Coordinator Relationship Specialty Start Date End Date Carmen Soni MD [address] [place] [address] PCP - General Internal Medicine 05/08/17 Vilma Lentz MD, PhD [address] [place] [address] [email or web address] Primary Oncologist Neurology 04/07/16 Riya Jay RN [address] [place] [address] [email or web address] Primary Infusion Nurse 04/07/16 Fani Llamas MD [address] [place] [address] [email or web address] Radiation Oncology 04/10/16 documented as of this encounter Additional Source Comments The information contained in this document represents components of the legal health record. It is not the complete legal health record.[facility] [place]
--- OUTSIDE RECORDS SUMMARY | 2025-03-10 11:53 | XMS_ITS | Clinical Summary ---
Author Organization [facility] Address [address] [place] [address] Phone Care Team Providers Care Cannon Crewmember Name Role Phone Vilma Lentz MD, PhD Unavailable Riya Jay RN Unavailable +- [phone] Fani Llamas MD Unavailable Carmen Soni MD Primary Care Provider [phone] Allergies Active Allergy Reactions Criticality Noted Date Comments Levofloxacin Rash Low 10/19/2015 Medications hydrOXYzine (VISTARIL) 25 MG capsuleIndicat ions:Oligodend roglioma of brain,Seizures Take 1 capsule (25 mg total) by mouth 3 (three) times a day as needed for itching. 30 capsule 3 8 Active metFORMIN (GLUCOPHAGE) 1000 MG tablet Take 1,000 mg by mouth 2 (two) times a day with meals. 500 qAM and 1000 QHS Active polyethylene glycol (MIRALAX) 17 gram/dose powder DISSOLVE 1 CAPFUL IN LIQUID AND DRINK EVERY DAY 3 Active acetaminophen (MAPAP, ACETAMINOPHEN, ) 500 mg capsule 1 capsule as needed Orally every 8 hrs Active atorvastatin (LIPITOR) 20 MG tablet Take 20 mg by mouth daily. Active ketoconazole 2 % cream 1 Application. Activ e calcium carbonate (OS-DAWSON) 1,250 mg (500 mg elemental) tablet 2 tablets with breakfast Orally Active OYSCO 500/D 500 mg-200 units per tablet 3 Active fluocinolone (SYNALAR) 0.01 % external solution APPLY EXTERNALLY TO ITCHY AREAS ON SCALP TWICE DAILY NEEDED FOR ITCH 3 Active levETIRAcetam (KEPPRA XR) 500 mg 24 hr tablet Take 4 tablets (2,000 mg total) by mouth daily. 120 tablet 5 5 Active divalproex (DEPAKOTE ER) 250 MG ER 24 hr tablet TAKE 5 TABLETS BY MOUTH EVERY DAY 150 tablet 5 5 Active ondansetron (ZOFRAN) 4 MG tablet Take 1 tablet (4 mg total) by mouth every 8 (eight) hours as needed for nausea. 30 tablet 1 5 Active vorasidenib (VORANIGO) 40 mg tabletIndicati ons:Oligodendr oglioma Take 1 tablet (40 mg total) by mouth daily. Refer to provider instructions. 30 tablet 5 Active vorasidenib (VORANIGO) 40 mg tabletIndicati ons:Oligodendr oglioma Take 1 tablet (40 mg total) by mouth daily. Refer to provider instructions. 30 tablet 5 02/26/20 25 Discontinu ed(No longer taking) Active Problems Patient Care Coordination No te Formatting of this note migh t be different from the original. Labs drawn by MEGA Reina, processed by [facility]: [phone] Fax for lab [facility]: [phone] We need to call [facility] for results, they will not fax automatically. 01/21/25: VNA referral sent to [facility] in [facility] (ph: [phone]; fax: [phone]) for SN & OT. Acceptance /SOC pending clinical review and insurance verification. -SKS 01/21/25: . [facility] declined- they don't take insurance, also go a verbal no from [facility]- they don't cover the area, and [facility]. Will continue to search-SKS 01/22/25: I submitted the VNA referral to [facility] in [place] ( ; fax: [phone]) They take her insurance and have availability for both services requested. 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 Assessment & Plan (11/26/2015 9:56 AM EDT): Admitted S/P tumor resection from Left location - Post-op imaging shows expected post-op changes and pneumocephalus - brain MRI pending - Final pathology pending, frozen suggested glioma - Neuro-oncology consulted - cont dexamethasone taper Lesion of left frontal lobe of brain 10/19/2015 Seizure 10/19/2015 Resolved Problems Problem Noted Date Diagnosed Date Resolved Date Lesion of brain 11/25/2015 11/25/2015 Encounters Date Type Department Care Team Description 03/07/2025 Ancillary Orders [facility] [address], 9th [address], [address] [place] [address] Vilma Clark MD, PhD Oligodendroglioma 03/03/2025 Telephone [facility] [address], 9[address], [address] [place] [address] Doreen Farrar RN 02/28/2025 Ancillary Orders [facility] [address], 9th [address], [address] [place] [address] Vilma Clark MD, PhD Oligodendroglioma 02/27/2025 Telephone [facility] [address], [address]th [address], [address] [place] [address] Pat Young, RAVI 02/25/2025 Orders Only [facility] [address], 9th [address], [address] [place] [address] Annamaria Hutchinson FNP Oligodendroglioma (Primary Dx) 02/24/2025 Telephone [facility] Social Service Department [address] [place] [phone] Christelle Merrill LCSW 02/24/2025 Orders Only [facility] [address], [address]th Floor, [address] [place] [address] Lauren Betancourt MD 02/21/2025 Ancillary Orders [facility] [address], [address]th [address], [address] [place] [address] Vilma Clark MD, PhD Oligodendroglioma 02/20/2025 Telephone [facility] [address], [address], [address] [address] Hayley Velasquez, RAVI 02/14/2025 Orders Only [facility] [address], [address]th [address], [address] [address] Annamaria Hutchinson FNP 02/14/2025 Ancillary Orders [facility] [address], [address]th [address], [address] [place] [address] Vilma Clark MD, PhD Oligodendroglioma 02/07/2025 Documentation [facility] [address], 9th Floor, [address] [place] [address] Amaury Jones, RN 02/07/2025 Ancillary Orders [facility] [address], 9th [address], [address] [place] [address] Vilma Clark MD, PhD Oligodendroglioma 02/06/2025 Telephone [facility] [address], [address]th [address], [address] [place] [address] Doreen Farrar, RAVI 02/04/[address] [address] Lucita Dover, [facility] 02/04/2025 Telephone [facility] Social Service Department [address] [place] [address] Christelle Merrill [facility] 01/31/2025 Ancillary Orders [facility] [address], [address]th [address], [address] [place] [address] Vilma Clark MD, PhD Oligodendroglioma 01/29/2025 Telephone [facility] [address], [address]th [address], [address] [place] [address] Annamaria Hutchinson, DIRECTOR OF BUSINESS OPERATIONS 01/28/2025 Ancillary Orders [facility] [address], [address]th [address], [address] [place] [address] Vilma Clark MD, PhD Oligodendroglioma 01/24/2025 Ancillary Orders [facility] [address], [address]th [address], [address] [place] [address] Vilma Clark MD, PhD Oligodendroglioma 01/21/2025 Documentation [facility] INTEGRATED CARE MANAGEMENT [address] [place] [address] Ruth Orellana RN 01/21/2025 Telephone [facility] Social Service Department [address] [place] [address] Christelle Merrill LCSW 01/21/2025 Orders Only [facility] [address] [place] [address], 9th Floor, [address] [place] [address] Annamaria Hutchinson, DIRECTOR OF BUSINESS OPERATIONS 01/21/2025 Orders Only [facility] [address] [place] [address], 9th Floor, [address] [place] [address] Annamaria Hutchinson, DIRECTOR OF BUSINESS OPERATIONS 01/21/2025 Ancillary Orders [facility] [address] [place] [address], 9th Floor, [address] [place] [address] Vilma Clark MD, PhD Oligodendroglioma 01/17/2025 Ancillary Orders [facility] [address] [place] [address], 9th Floor, [address] [place] [address] Vilma Clark MD, PhD Oligodendroglioma 01/14/2025 Ancillary Orders [facility] [address] [place] [address], 9th Floor, [address] [place] [address] Vilma Clark MD, PhD Oligodendroglioma 01/10/2025 Ancillary Orders [facility] [address] [place] [address], 9th Floor, [address] [place] [address] Vilma Clark MD, PhD Oligodendroglioma 01/07/2025 Ancillary Orders [facility] [address] [place] [address], 9th Floor, [address] [place] [address] Vilma Clark MD, PhD Oligodendroglioma 01/03/2025 Ancillary Orders [facility] [address] [place] [address], 9th Floor, [address] [place] [address] Vilma Clark MD, PhD Oligodendroglioma 12/31/2024 Ancillary Orders [facility] [address], 9th Floor, [address] [place] [address] Vilma Clark MD, PhD Oligodendroglioma 12/27/2024 Ancillary Orders [facility] [address], 9th Floor, [address] [place] [address] Vilma Clark MD, PhD Oligodendroglioma 12/25/2024 Documentation [facility] [address] [place] [address] Lucero Palmer 12/24/2024 11:30 AM EDT Office Visit [facility] [address], 9th [address], [address] [place] [address] Vilma Clark MD, PhD Oligodendroglioma (Primary Dx) 12/24/2024 9:30 AM EDT - 12/24/2024 11:59 PM EDT Hospital Encounter [facility] - MRI, [address] [address] Vilma Clark MD, PhD Discharge Disposition: Home or Self Care 08/13/2024 Procedure Pass [facility] - MRI, [address] [address] from Last 3 Months Family History Medical History Relation Comments Kidney failure Father Migraines Mother Relation Status Comments Father Mother Social History Tobacco Use Types Packs/Day Years [...] on file Sexual Orientation Not on file Last Filed Vital Signs Vital Sign Reading Time Taken Comments Blood Pressure 120/74 12/24/2024 11:16 AM EDT Pulse 72 12/24/2024 11:16 AM EDT Temperature 36.3 C (97.4 F) 12/24/2024 11:16 AM EDT Respiratory Rate 16 12/24/2024 11:16 AM EDT Oxygen Saturation 98% 12/24/2024 11:16 AM EDT Inhaled Oxygen Concentration - - Weight 108.4 kg (239 lb) 12/24/2024 11:16 AM EDT Height 162.6 cm (5' 4 ) 12/09/2024 11:16 AM EDT Body Mass Index 41.02 12/09/2024 11:16 AM EDT Plan of Treatment Upcoming Encounters Date Type Department Care Team (Late st Contact Info) Description 12/24/2024 Procedure Pass MRI, [facility] [address] [place] [address] 03/17/2025 12:45 PM EDT Appointment MRI, [facility] [address] [place] [address] Bhargav Naik MBBS [address] [place] [address] [email or web address] 03/17/2025 1:30 PM EDT Blood Draw [facility] [address], 9th [address], [address] [place] [address] Annamaria Hutchinson FNP [address] [facility] [address] [place] [address] 03/17/2025 2:00 PM EDT Office Visit [facility] [address], 9th Floor, [address] [place] [address] Vilma Lentz MD, PhD [address] [facility] [address] [place] [address] [email or web address] 04/16/2025 10:00 AM EDT Office Visit [facility] Department of Neurology [address] [facility], 8th Floor, [address] [place] [address] Seth Ross MD [address] [facility] [place] [address] [email or web address] Maintenance Due Date Last Done Comments DEPRESSION SCREENING 1982 HEPATITIS C SCREENING 01/21/1988 HIV ONE-TIME SCREENING (18-65 YEARS) 01/21/1988 PNEUMOCOCCAL VACCINES (50+ years) (1 of 2 - PCV) 1989 ZOSTER VACCINES (1 of 2) 1989 MAMMOGRAM 2010 COLOGUARD 2015 COLONOSCOPY 2015 COLORECTAL CANCER SCREENING 2015 FIT TEST 2015 FOBT 2015 SIGMOIDOSCOPY 2015 VIRTUAL COLONOSCOPY 2015 PAP SMEAR 04/24/2021 04/24/2018 VALPROIC ACID (DEPAKENE) LEVEL 12/11/2024 12/12/2023, 05/28/2019, 01/11/2019, Additional history exists INFLUENZA VACCINE (#1) 2025 07/26/2011 COVID-19 VACCINE (2 - 2024- season) 2025 11/18/2020 CREATININE LEVEL 12/24/2025 12/24/2024, , 12/12/2023, Additional history exists SCREENING FOR DIABETES 12/25/2027 12/24/2024 LIPID PANEL 07/10/2029 07/10/2024 Adult Td,Tdap Booster 10/02/2031 10/01/2021, 019 SMOKING STATUS SCREENING (Once After 26 Yrs) Completed 08/16/2017 HEPATITIS A VACCINES Aged Out No long er eligible based on patient's age to complete this topic HIB VACCINES Aged Out No longer eligi ble based on patient's age to complete this topic MENINGOCOCCAL VACCINES (ACWY) Aged Out No longer eligible based on patient's age to complete this topic MENINGOCOCCAL VACCINES (B) Aged Out N o longer eligible based on patient's age to complete this topic Medical Devices Implanted Type Area Diesel Scoop Operator Device Identifier Shelf Expiration Date Model / Serial / Lot Screw Ti Matrixneuro Self-Drilling 4mm - [id number] Implanted:Qty: 10 on 11/25/2015 by Gallo Choudhury MD, PhD at [facility] NODATA Frontal Lobe SYNTHES .104 .05 / / Onlay Lyoplant 7.5x7.5cm - [id number] Implanted:Qty: 1 on 11/25/2015 by Gallo Choudhury MD, PhD at [facility] Left: Frontal Lobe AESCULAP 04/18/2018 [id number] / [id number] / [id number] Description:soaked for 3 min s in 0.9% NaCl Lot [facility] [id number] Exp [id number] Cover Joey Hole Ti Matrix Neuro 24mm - [id number] Implanted:Qty: 3 on 11/25/2015 by Gallo Choudhury MD, PhD at [facility] Frontal Lobe SYNTHES .024 / / Catheter Surgical 8fr Triniflex Std Attachable Profuse - [id number] Implanted:Qty: 1 on 06/24/2016 by Kiara Alvarez CNP at [facility] Right: Chest MED COMP 08/15/2020 [id number] / / [id number] Description:MR Conditional The Implantable Vascular Access Port was determined to be MR-conditional. Non-clinical testing demonstrated that the Implantable Vascular Access Port is MR Conditional. A patient with this device can be scanned safely immediately afterplacement under the following conditions: Static Magnetic Field -Static magnetic field of 3-Lana or less -Maximum spatial gradient magnetic field of 720-Gauss/cm or less Explanted Type Area Diesel Scoop Operator Device Identifier Shelf Expiration Date Model / Serial / Lot Software Development Leader-Iv Very Difficult. Success On Right Lateral Thumb/Metacarpal Area. Pin Description:criminal records technician- IV faustino y difficult. Success on right lateral thumb/metacarpal area. Procedures Procedure Name Priority Date/Time Associated Diagnosis Comments AMB REFERRAL TO [facility] ONCOLOGY SUPPORTIVE CARE SERVICES Routine 02/24/2025 3:03 PM EDT OUTSIDE LAB Routine 02/18/2025 12:00 AM EDT COMPREHENSIVE METABOLIC PANEL Routine 12/24/2024 12:31 PM EDT Oligodendroglioma CBC AND DIFFERENTIAL Routine 12/24/2024 12:31 PM EDT Oligodendroglioma MRI BRAIN (TUMOR) WITH AND WITHOUT CONTRAST Routine 12/24/2024 10:33 AM EDT Oligodendroglioma of brain VALPROIC ACID Routine 12/12/2023 10:34 AM EDT Oligodendroglioma of brain from Last 3 Months or Most Recently Relevant to Health Maintenance Results * Ambulatory referral to [facility] Oncology Supportive Care Services (02/24/2025 3:03 PM EDT) Other Annamaria LOPEZ AMB [facility] REFERRALS Final R esult * Outside Lab (02/18/2025 12:00 AM EDT) us Historical Provider LAB BLOOD ORDERABLES Talia l Result * Comprehensive metabolic panel (12/24/2024 12:31 PM EDT) SODIUM 139 135 - 145 mmol/L [facility] POTASSIUM 4.0 3.4 - 5.0 mmol/L [facility] CHLORIDE 104 98 - 108 mmol/L [facility] CO2 25 23 - 32 mmol/L [facility] BUN 12 8 - 25 mg/dL [facility] CREATININE 0.80 0.50 - 1.00 mg/dL [facility] GLUCOSE 90 70 - 110 mg/dL [facility] ALBUMIN 4.0 3.3 - 5.0 g/dL [facility] TOTAL PROTEIN 7.6 6.0 - 8.3 g/dL [facility] CALCIUM 9.2 8.5 - 10.5 mg/dL [facility] ALKALINE PHOSPHATASE 71 30 - 100 U/L [facility] TOTAL BILIRUBIN 0.2 0.0 - 1.0 mg/dL [facility] AST 18 9 - 32 U/L [facility] ALT 10 7 - 33 U/L [facility] GLOBULIN 3.6 1.9 - 4.1 g/dL [facility] EGFR 88 >59 mL/min/1. 73m2 [facility] Comment:Estimated glomerular filtration rate calculated using the CKD-EPI refit equation. ANION GAP 10 3 - 17 mmol/L [facility] 12/24/2024 12:3 1 PM EDT 12/24/2024 12:44 PM EDT us Bhargav MONGE LAB BLOOD ORDERABLES Final Resul t [address] [address] * (ABNORMAL) CBC and differential (12/24/2024 12:31 PM EDT) WBC 6.44 4.00 - 11.00 K/uL [facility] RBC 4.74 4.00 - 5.20 M/uL [facility] HGB 12.5 12.0 - 16.0 g/dL [facility] HCT 39.4 36.0 - 46.0 % [facility] PLT 210 150 - 450 K/uL [facility] MCV 83.1 80.0 - 100.0 fL [facility] MCH 26.4(L) 27.0 - 31.0 pg [facility] MCHC 31.7(L) 32.0 - 36.0 g/dL [facility] RDW 16.4(H) 11.5 - 14.5 % [facility] MPV 10.5 8.4 - 12.0 fL [facility] NRBC 0.00 0.00 /100 WBCs [facility] ABSOLUTE NRBC 0.00 0.00 K/uL [facility] DIFF METHOD Auto [facility] NEUTS 52.6 48.0 - 76.0 % [facility] LYMPHS 37.4 18.0 - 41.0 % [facility] MONOS 5.6 4.0 - 11.0 % [facility] EOS 3.6 0.0 - 5.0 % [facility] BASOS 0.6 0.0 - 1.5 % [facility] % IMMATURE GRANS 0.2 0.0 - 0.9 % [facility] ABSOLUTE NEUTS 3.39 1.92 - 7.60 K/uL [facility] ABSOLUTE LYMPHS 2.41 0.72 - 4.10 K/uL [facility] ABSOLUTE MONOS 0.36 0.16 - 1.10 K/uL [facility] ABSOLUTE EOS 0.23 0.00 - 0.50 K/uL [facility] ABSOLUTE BASOS 0.04 0.00 - 0.15 K/uL [facility] ABS IMMATURE GRANS 0.01 0.00 - 0.09 K/uL [facility] Blood 12/24/2024 12:3 1 PM EDT 12/24/2024 12:44 PM EDT us Bhargav MONGE LAB BLOOD ORDERABLES Final Resul t Performing Organization Address City/State/[facility] Co de Phone Number [address] [address] * MRI BRAIN (TUMOR) WITH AND WITHOUT CONTRAST (12/24/2024 10:33 AM EDT) Anatomical Region Laterality Modality Head Magnetic Resonan ce 12/26/2024 1:41 PM EDT Impressions 12/26/2024 1:51 PM EDT 1. Stable postsurgical and posttreatment changes within the left frontal lobe. No evidence of progressive or recurrent tumor identified. Narrative 12/26/2024 1:51 PM EDT MRI BRAIN (TUMOR) WITH AND WITHOUT CONTRAST Referring clinician's provided indication for this examination in Epic: * Astrocytoma/oligodendroglioma, monitor TECHNIQUE: Multi-sequence, multi-planar MRI of the brain was performed before and after intravenous contrast. COMPARISON: MR brain August 13, 2024 FINDINGS: Brain Parenchyma: Again demonstrated are postsurgical changes related to a prior left frontal craniotomy and resection cavity. The resection cavity margins are stable in appearance. There is stable surrounding FLAIR hyperintensity within the bilateral frontal lobes, left greater than right. No progressive FLAIR hyperintensity is identified. No evidence of recent infarct. Multiple scattered foci of susceptibility artifact within the frontal lobes is not substantially changed allowing for differences in technique, likely reflective of tiny microhemorrhages. Ventricular System and Extra-Axial Spaces: Similar ex-vacuo dilatation of the frontal horn of the left lateral ventricle. Stable caliber of the ventricular system. Extracranial Structures: Expected arterial flow signal is observed at the skull base. Procedure Note Annamaria Beltran MD - 12/26/2024 MRI BRAIN (TUMOR) WITH AND WITHOUT CONTRAST Referring clinician's provided indication for this examination in Epic: *Astrocytoma/oligodendroglioma, monitor TECHNIQUE: Multi-sequence, multi-planar MRI of the brain was performedbefore and after intravenous contrast. COMPARISON: MR brain August 13, 2024 FINDINGS: Brain Parenchyma: Again demonstrated are postsurgical changes related to aprior left frontal craniotomy and resection cavity. The resection cavitymargins are stable in appearance. There is stable surrounding FLAIRhyperintensity within the bilateral frontal lobes, left greater thanright. No progressive FLAIR hyperintensity is identified. No evidence ofrecent infarct. Multiple scattered foci of susceptibility artifact withinthe frontal lobes is not substantially changed allowing for differences intechnique, likely reflective of tiny microhemorrhages. Ventricular System and Extra-Axial Spaces: Similar ex-vacuo dilatation ofthe frontal horn of the left lateral ventricle. Stable caliber of theventricular system. Extracranial Structures: Expected arterial flow signal is observed at theskull base. IMPRESSION: 1. Stable postsurgical and posttreatment changes within the left frontallobe. No evidence of progressive or recurrent tumor identified. Vilma Lentz MD, PhD IMG MR HEAD/NE CK Final Result * Valproic acid (12/12/2023 10:34 AM EDT) VALPROIC ACID 72.1 50.0 - 100.0 ug/mL [facility] 12/12/2023 10:3 4 AM EDT 12/12/2023 10:49 AM EDT Vilma Lentz MD, PhD LAB BLOOD JOSUE JUDD Final Result [address] [address] from Last 3 Months or Most Recently Relevant to Health Maintenance Insurance MEDICARE REPLACEMENT MEDICARE REPLACEMENT MEDICARE REPLACEMENT MEDICARE REPLACEMENT MEDICARE REPLACEMENT MEDICARE [place]AC[place] [address] [place] [address] CARE MEDICARE REPLACEMENT [facility] MEDICARE REPLACEMENT [facility] CARE MEDICARE REPLACEMENT Advance Directives For more information, please contact: [phone] (9AM - 5PM [facility], Monday-Monday) Documents on File Type Date Recorded Patient Decker Operator Expl tramaine Ledesma Proxy 12/08/2015 2:55 PM Ijeoma Forde Signed 11/25/2015 * Full Code (Presumed) (Latest Code Status on File) Date Activated Date Inactivated Comments 06/24/2016 11:03 AM 06/25/2016 6:45 AM * Full Code (Presumed) Date Activated Date Inactivated Comments 11/25/2015 7:22 PM 12/04/2015 1:27 PM Care Teams Cannon Crewmember Relationship Specialty Start Date End Date Carmen Soni MD [address] [place] [id number] PCP - General Internal Medicine 05/08/17 Vilma Lentz MD, PhD [address] [place] [id number] [email or web address] Primary Oncologist Neurology 04/07/16 Riya Jay, RN [address] [place] [id number] [email or web address] Primary Infusion Nurse 04/07/16 Fani Llamas MD [address] [place] [address] [email or web address] Radiation Oncology 04/10/16 Additional Source Comments The information contained in this document represents components of the legal health record. It is not the complete legal health record.[facility]
--- OUTSIDE RECORDS SUMMARY | 2025-03-10 11:53 | XMS_ITS | Encounter Summary ---
Author Organization [facility] Address [address] [place] [address] [address] [place] [address] Phone Care Team Providers Care Supervisor Cigarette Making Department Name Role Phone Vilma Lentz MD, PhD Unavailable Riya Jay RN Unavailable [phone] Fani Llamas MD Unavailable Carmen Soni MD Primary Care Provider [phone] Encounter Details Date Type Department Care Team (Late st Contact Info) Description 02/28/2025 Ancillary Orders [facility] [address] [facility], 9th Floor, [address] [place] [address] Vilma Lentz MD, PhD [address] [facility] [address] [place] [address] [email or web address] Oligodendroglioma Social History Tobacco Use Types Packs/Day [...] [address] [place] [address] 03/17/2025 12:45 PM EDT Appointment MRI, [facility] [address] [place] [address] Bhargav Naik MBBS [address] [place] [address] [email or web address] 03/17/2025 1:30 PM EDT Blood Draw [facility] [address] [facility], 9th Floor, [address] [place] [address] Annamaria Hutchinson FNP [address] [place] [address] [address] [place], [place] [email or web address] 03/17/2025 2:00 PM EDT Office Visit [facility] [address] [facility], 9th Floor, [address] [place] [address] Vilma Lentz MD, PhD [address] [place] [address] [place], [place] [address] [email or web address] 04/16/2025 10:00 AM EDT Office [place] [facility] [place] [address] [place] [address], 8th Floor, [address] [place] [address] Seth Ross MD [address] [place] [address] [place] [address] [email or web address] documented as of this encounter 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, unspecified site documented in this encounter Care Teams Supervisor Cigarette Making Department Relationship Specialty Start Date End Date Carmen Soni MD [address] [place] [address] PCP - General Internal Medicine 05/08/17 Vilma Lentz MD, PhD [address] [place] [address] [email or web address] Primary Oncologist Neurology 04/07/16 Riya Jay RN [address] [place] [address] [email or web address] Primary Infusion Nurse 04/07/16 Fani Llamas MD [address] [place] [address] [email or web address] Radiation Oncology 04/10/16 documented as of this encounter Additional Source Comments The information contained in this document represents components of the legal health record. It is not the complete legal health record.[facility]
--- OUTSIDE RECORDS SUMMARY | 2025-03-10 11:53 | XMS_ITS | Encounter Summary ---
Author Organization [facility] Address [address] [place] [address] [place] [address] Phone Care Team Providers Care Tile Fitter Name Role Phone Herlinda Bah Primary Care Provider Vilma Lentz MD, PhD Unavailable Riya Jay RN Unavailable [phone] Fani Llamas MD Unavailable Carmen Soni MD Primary Care Provider Carmen Soni MD Primary Care Provider Encounter Details Date Type Department Care Team (Latest Contact Info) Description 11/25/2015 Ancillary Orders [facility] [address] [place] [address], 9th Floor, [address] [place] [address] Gallo Choudhury MD, PhD [address] [place] [address] [address] [place] [address] [email or web address] 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) Social History Tobacco Use Types Packs/Day Years [...] General Imaging [address] [place] [address] 03/17/2025 12:45 PM EDT Appointment MRI, [facility] Imaging [address] [place] [address] Bhargav Naik MBBS [address] [place] [address] [email or web address] 03/17/2025 1:30 PM EDT Blood Draw [facility] [address] [facility], 9th Floor, [address] [place] [address] Annamaria Hutchinson FNP [address] [place] [address] [address] [place] [address] [email or web address] 03/17/2025 2:00 PM EDT Office Visit [facility] [address] [facility], 9th Floor, [address] [place] [address] Vilma Lentz MD, PhD [address] [place] [address] [address] [place] [address] [email or web address] 04/16/2025 10:00 AM EDT Office Visit [facility] [place] of [place]rology [address] [facility], 8th Floor, [address] [place] [address] Seth Ross MD [address] [place] [address] [place] [address] [email or web address] documented as of this encounter Results * MRI BRAIN INTRAOP WITHOUT CONTRAST (11/25/2015 5:38 PM EDT) Anatomical Region Laterality Modality Head Magnetic Resonan ce 11/26/2015 1:46 PM EDT Impressions 11/27/2015 5:12 PM EDT IMPRESSION: 1. Expected postoperative changes following resection of the great majority of the T2 hyperintense mass within the left superior frontal gyrus and left cingulate gyrus. 2. Small areas of residual tumor, as described above. Narrative 11/27/2015 5:12 PM EDT TECHNIQUE: MRI of the brain without intravenous contrast COMPARISON: Head CT 11/25/2015, outside brain MR 09/03/2015. FINDINGS: There are expected post-operative changes following resection of the great majority of the T2 hyperintense mass which primarily involved the left superior frontal gyrus and cingulate gyrus. There are small regions of T2 hyperintensity consistent with residual tumor: - a small nodular region along the anterior inferior lateral resection margin - an additional region along the same margin which is slightly superior and posterior which is admixed with post-surgical change - a crescentic component along the inferior margin of the resection cavity - a small focus along the inferior and medial margin in the anterior cingulate gyrus A small amount of restricted diffusion along the posterior lateral margin of the resection cavity is consistent with devitalized tissue, an expected finding. There is a small amount of scattered subarachnoid hemorrhage is the left frontal sulci and right cingulate sulcus. There is a small amount of mass effect on the left lateral ventricle related to the pneumocephalus and tissue shifts. Procedure Note Jaret Laureano MD - 11/27/2015 TECHNIQUE: MRI of the brain without intravenous contrast COMPARISON: Head CT 11/25/2015, outside brain MR 09/03/2015. FINDINGS: There are expected post-operative changes following resection of thegreat majority of the T2 hyperintense mass which primarily involved the leftsuperior frontal gyrus and cingulate gyrus. There are small regions of T2 hyperintensity consistent with residualtumor: - a small nodular region along the anterior inferior lateral resectionmargin - an additional region along the same margin which is slightly superiorand posterior which is admixed with post-surgical change - a crescentic component along the inferior margin of the resectioncavity - a small focus along the inferior and medial margin in the anteriorcingulate gyrus A small amount of restricted diffusion along the posterior lateral marginof the resection cavity is consistent with devitalized tissue, an expectedfinding. There is a small amount of scattered subarachnoid hemorrhage is the leftfrontal sulci and right cingulate sulcus. There is a small amount of mass effect on the left lateral ventriclerelated to the pneumocephalus and tissue shifts. IMPRESSION: IMPRESSION: 1. Expected postoperative changes following resection of the greatmajority of the T2 hyperintense mass within the left superior frontal gyrus and left cingulate gyrus. 2. Small areas of residual tumor, as described above. us Gallo Choudhury MD, PhD IMG MR HEAD/NECK Final R esult documented in this encounter Visit Diagnoses Diagnosis Neoplasm of unspecified nature of brain- Primary Neoplasm of unspecified nature of brain documented in this encounter Care Teams Tile Fitter Relationship Specialty Start Date End Date Herlinda Bah DO [address] [place] [id number] PCP - General 10/16/15 12/18/16 Carmen Soni MD [address] [place] [address] PCP - General Internal Medicine 12/19/16 05/07/17 Carmen Soni MD [address] [place] [address] PCP - General Internal Medicine 05/08/17 Vilma Lentz MD, PhD [address] [place] [address] [address] [place] [address] [email or web address] Primary Oncologist Neurology 04/07/16 Riya Jay RN [address] [place] [address] [email or web address] Primary Infusion Nurse 04/07/16 Fani Llamas MD [address] [place] [address] [email or web address] Radiation Oncology 04/10/16 documented as of this encounter Additional Source Comments The information contained in this document represents components of the legal health record. It is not the complete legal health record.[facility]
--- OUTSIDE RECORDS SUMMARY | 2025-03-10 11:53 | XMS_ITS | Encounter Summary ---
Author Organization [facility] Address [address] [place] [address] [address] [place] [address] Phone Care Team Providers Care Marker Delivery Name Role Phone Vilma Lentz MD, PhD Unavailable Riya Jay RN Unavailable [phone] Fani Llamas MD Unavailable Carmen Soni MD Primary Care Provider [phone] Encounter Details Date Type Department Care Team (Late st Contact Info) Description 03/07/2025 Ancillary Orders [facility] [address] [facility], 9th Floor, [address] [place] [address] Vilma Lentz MD, PhD [address] [facility] [address] [place] [address] [email or web address] Oligodendroglioma Social History Tobacco Use [...] [address] [place] [address] 03/17/2025 12:45 PM EDT Appointment MRI, [facility] [address] [place] [address] Bhargav Naik MBBS [address] [place] [address] [email or web address] [email or web address] 03/17/2025 1:30 PM EDT Blood Draw [facility] [address] [facility], 9th Floor, [address] [place] [address] Annamaria Hutchinson FNP [address] [place] [address] [address] [place], [place] [email or web address] 03/17/2025 2:00 PM EDT Office Visit [facility] [address] [facility], 9th Floor, [address] [place] [address] Vilma Lentz MD, PhD [address] [place] [address] [place] [address] [email or web address] 04/16/2025 10:00 AM EDT Office Visit [facility] Department of Neurology [address] [place] [address], 8th Floor, [address] [place] [address] Seth Ross MD [address] [place] [address] [place] [address] [email or web address] documented as of this encounter 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 [email or web address] Primary Oncologist Neurology 04/07/16 Riya Jay RN [address] [place] [address] [email or web address] Primary Infusion Nurse 04/07/16 Fani Llamas MD [address] [place] [address] [email or web address] Radiation Oncology 04/10/16 documented as of this encounter Additional Source Comments The information contained in this document represents components of the legal health record. It is not the complete legal health record.[facility]
--- OUTSIDE RECORDS SUMMARY | 2025-03-10 11:53 | XMS_ITS | Patient Health Record ---
Author Organization [facility] [address] Address [address] [place] [address] Care Team Providers Care Kitchen Operator Name Role Phone LASHAUN JOHNAL Unavailable ROGE ZHOU Unavailable [phone] Allergies No Known Allergies Reason For Referral No Information Medications Medication SIG (Take, Route, Frequency, Duration) Notes Start Date End Date Status Gabapentin 100 MG 1 capsule Orally Onc e a day tid Active Atorvastatin Calcium 20 MG 1 tablet Oral ly Once a day Active Vitamin K2 Active Polyethylene Glycol - as directed Externally Active Zinc Active metFORMIN HCl 1000 MG 1 tablet with a me al Orally twice daily; Duration: 90 days Active Ketoconazole 2 % 1 application Foundation Coordinator ally Once a day 30 mg Active levETIRAcetam 1000 MG 1 tablet on the to ngue and allow to dissolve Orally Twice a day Active Nortriptyline HCl 25 MG 1 capsule Orally three times a day Active Rizatriptan Benzoate 5 MG 1 tablet Orall y Once a day Active Mapap 500 MG 1 capsule as needed Orally every 8 hrs Active B Complex Active Divalproex Sodium 250 MG 1 tablet Orally Once a day Active Calcium 500 MG 2 tablets with break fast Orally Active hydrOXYzine HCl 25 MG 3x Orally daily Active Social History Tobacco Use: Social History Observation Description Date Details (start date - stop date) Never Smoker NA - NA Tobacco Use/Smoking Question Answer Notes Are you a nonsmoker Problems Problem Type SNOMED Code ICD Code Onset Dates Problem Status W/U Status Risk Notes Problem Diabetes mellitus screening (160528715) Encounter for screening for diabetes mellitus (Z13.1) Active confirmed Problem Prediabetes (690113826) Prediabetes (R73.03) Active confirmed Problem Hyperlipidaemia (71752663) Hyperlipidemia, unspecified hyperlipidemia type (E78.5) Active confirmed Problem Body mass index 40+ - morbidly obese (309188898) BMI 40.0-44.9, adult (Z68.41) Active confirmed Problem Obese class II (262502660123907) BMI 39.0-39.9,adult (Z68.39) Active confirmed Problem Obese class II (451165505982013) BMI 38.0-38.9,adult (Z68.38) Active confirmed Problem Obesity (558764338) Obesity due to excess calories without serious comorbidity, unspecified classification (E66.09) Active confirmed Vital Signs Heart Rate 78 /min 04/11/2024 Oximetry 96 % 04/11/2024 Blood pressure diastolic 82 mm Hg 04/11/2024 Height 64 in 04/11/2024 Blood pressure systolic 122 mm Hg 04/11/2024 Weight 225.4 lbs 04/11/2024 BMI 38.69 kg/m2 04/11/2024 Encounters Encounter Location Date Provider Diagnosis [facility] [address] [place] [address] 04/11/2024 ROGE ZHOU BMI 38.0-38.9,adult Z68.38 ; Obesity due to excess calories without serious comorbidity, unspecified classification E66.09 ; Hyperlipidemia, unspecified hyperlipidemia type E78.5 and Prediabetes R73.03 [facility] [address] [place] [id number] 05/28/2024 ROGE ZHOU Assessments Encounter Date Diagnosis (ICD Code) Assessment Notes Treatment Notes Treatment Clinical Notes Section Notes 04/11/2024 BMI 38.0-38.9,adult (ICD-10 - Z68.38) Annalise Koch is a pleasant 52-year-old female coming in today for weight loss follow up. Flat affect and slow speech as baseline folowing Brain Tumor removal 7 years ago. 09/12/23: Patient's weight has remained the same at 232 lbs since her last visit in 05/11. She states she is eating 2 meals daily with good protein intake, enjoys a variety of fruits and veggies and is walking to burn atleast 100-200 calories daily. She is only sleeping 3-4 hours nightly and has high stress levels dealing with her depression after her brain tumor removal. Patient is unsure of the metformin dose she is currently taking and expresses no interest in trying another weight loss medication at this time. She would like to restart Metformin 1000mg BID and lifestyle modifications for now. Patient's main goal is to lower her BMI to be able to have a breast reduction to help with back pain. Patient is unsure what her goal BMI is. Will check with PCP and report back to us so we can adjust her goals. Patient declined SECA score. 10/24/2023: Weight 227, BMI 38.96. Patient congratulated on successful weight loss. Has lost over 20 pounds since she started, taking metformin 1000 mg twice daily. Has been helping with appetite suppression. Goal BMI is 33 in order to qualify for the breast reduction per patient's primary care. Will start implementing more resistance training.Body scan reviewed, showing more muscle loss than fat loss. 12/20/2023: Weight 227.8, BMI 39.1. Patient congratulated on effort, doing really well with exercising lifting weights every other day, and doing cardio. Reviewing body scan she did gain 1 pound, but composition shows that she gained 2 pounds of muscle, and lost 5 pounds of fat. Patient also gained some water weight. Continue with metformin 1000 mg twice daily. Patient states she is feeling well on this regimen and is feeling better overall. 04/07/2024: Weight 225, BMI 38.69. Patient last seen in December. Minimal weight loss but when reviewing body scan, positive changes to composition, with muscle maintenance, a little bit of fat loss, some water loss. Hesitant to use GLP-1's secondary to delayed gastric emptying which can decrease efficacy of her seizure medications. She is potentially interested in these but stated that I will consider prescribing if there is a clearance note from neurology for which she is following with them April 15. In the meantime we will continue with lifestyle she is doing better, feels like her clothes are fitting better. Patient follow with PCP closely for all primary care needs. # Depression: Following with therapy # Seizures: Takes Depakote 250 mg, has been seizure-free, levetiracetam 1000 mg, Follows with neurology. History of brain tumor with removal. # Difficulty sleeping: Takes hydroxyzine 25 mg # Depression: Take nortriptyline 25 mg 3 times daily # Hyperlipidemia: Takes atorvastatin 20 mg Time spent with patient 30 minutes with greater than 50% of patient patient care coronation Follow-up in 6-8 weeks, sooner as needed. All quetsions answered to patients satisfaction. Patient verbalized understanding of diagnosis and treatments explained. To call sooner prior to next visit it any questions/concerns arise. Case discussed with collaborating physician Radha Barragan who reviewed the assessment and plan. Chart, medications, labs, vital signs reviewed. Dictation was accomplished with the use of [employer] voice recognition software, prone to medical misidentifications and grammatical errors. This is unintentional and the practitioner does try to identify and correct these, but some could still be present. Please do not hesitate to contact practitioner for clarification. 04/11/2024 Obesity due to excess calories without serious comorbidity, unspecified classification (ICD-10 - E66.09) #ObesityAnnalise is a pleasant 52-year-old female coming in today for weight loss follow up. Flat affect and slow speech as baseline folowing Brain Tumor removal 7 years ago. 09/12/23: Patient's weight has remained the same at 232 lbs since her last visit in 05/11. She states she is eating 2 meals daily with good protein intake, enjoys a variety of fruits and veggies and is walking to burn atleast 100-200 calories daily. She is only sleeping 3-4 hours nightly and has high stress levels dealing with her depression after her brain tumor removal. Patient is unsure of the metformin dose she is currently taking and expresses no interest in trying another weight loss medication at this time. She would like to restart Metformin 1000mg BID and lifestyle modifications for now. Patient's main goal is to lower her BMI to be able to have a breast reduction to help with back pain. Patient is unsure what her goal BMI is. Will check with PCP and report back to us so we can adjust her goals. Patient declined SECA score. 10/24/2023: Weight 227, BMI 38.96. Patient congratulated on successful weight loss. Has lost over 20 pounds since she started, taking metformin 1000 mg twice daily. Has been helping with appetite suppression. Goal BMI is 33 in order to qualify for the breast reduction per patient's primary care. Will start implementing more resistance training.Body scan reviewed, showing more muscle loss than fat loss. 12/20/2023: Weight 227.8, BMI 39.1. Patient congratulated on effort, doing really well with exercising lifting weights every other day, and doing cardio. Reviewing body scan she did gain 1 pound, but composition shows that she gained 2 pounds of muscle, and lost 5 pounds of fat. Patient also gained some water weight. Continue with metformin 1000 mg twice daily. Patient states she is feeling well on this regimen and is feeling better overall. 04/07/2024: Weight 225, BMI 38.69. Patient last seen in December. Minimal weight loss but when reviewing body scan, positive changes to composition, with muscle maintenance, a little bit of fat loss, some water loss. Hesitant to use GLP-1's secondary to delayed gastric emptying which can decrease efficacy of her seizure medications. She is potentially interested in these but stated that I will consider prescribing if there is a clearance note from neurology for which she is following with them April 15. In the meantime we will continue with lifestyle she is doing better, feels like her clothes are fitting better. Patient follow with PCP closely for all primary care needs. # Depression: Following with therapy # Seizures: Takes Depakote 250 mg, has been seizure-free, levetiracetam 1000 mg, Follows with neurology. History of brain tumor with removal. # Difficulty sleeping: Takes hydroxyzine 25 mg # Depression: Take nortriptyline 25 mg 3 times daily # Hyperlipidemia: Takes atorvastatin 20 mg Time spent with patient 30 minutes with greater than 50% of patient patient care coronation Follow-up in 6-8 weeks, sooner as needed. All quetsions answered to patients satisfaction. Patient verbalized understanding of diagnosis and treatments explained. To call sooner prior to next visit it any questions/concerns arise. Case discussed with collaborating physician Radha Barragan who reviewed the assessment and plan. Chart, medications, labs, vital signs reviewed. Dictation was accomplished with the use of [employer] voice recognition software, prone to medical misidentifications and grammatical errors. This is unintentional and the practitioner does try to identify and correct these, but some could still be present. Please do not hesitate to contact practitioner for clarification. 04/11/2024 Hyperlipidemia, unspecified hyperlipidemia type (ICD-10 - E78.5) #ObesityAnnalise is a pleasant 52-year-old female coming in today for weight loss follow up. Flat affect and slow speech as baseline folowing Brain Tumor removal 7 years ago. 09/12/23: Patient's weight has remained the same at 232 lbs since her last visit in 05/11. She states she is eating 2 meals daily with good protein intake, enjoys a variety of fruits and veggies and is walking to burn atleast 100-200 calories daily. She is only sleeping 3-4 hours nightly and has high stress levels dealing with her depression after her brain tumor removal. Patient is unsure of the metformin dose she is currently taking and expresses no interest in trying another weight loss medication at this time. She would like to restart Metformin 1000mg BID and lifestyle modifications for now. Patient's main goal is to lower her BMI to be able to have a breast reduction to help with back pain. Patient is unsure what her goal BMI is. Will check with PCP and report back to us so we can adjust her goals. Patient declined SECA score. 10/24/2023: Weight 227, BMI 38.96. Patient congratulated on successful weight loss. Has lost over 20 pounds since she started, taking metformin 1000 mg twice daily. Has been helping with appetite suppression. Goal BMI is 33 in order to qualify for the breast reduction per patient's primary care. Will start implementing more resistance training.Body scan reviewed, showing more muscle loss than fat loss. 12/20/2023: Weight 227.8, BMI 39.1. Patient congratulated on effort, doing really well with exercising lifting weights every other day, and doing cardio. Reviewing body scan she did gain 1 pound, but composition shows that she gained 2 pounds of muscle, and lost 5 pounds of fat. Patient also gained some water weight. Continue with metformin 1000 mg twice daily. Patient states she is feeling well on this regimen and is feeling better overall. 04/07/2024: Weight 225, BMI 38.69. Patient last seen in December. Minimal weight loss but when reviewing body scan, positive changes to composition, with muscle maintenance, a little bit of fat loss, some water loss. Hesitant to use GLP-1's secondary to delayed gastric emptying which can decrease efficacy of her seizure medications. She is potentially interested in these but stated that I will consider prescribing if there is a clearance note from neurology for which she is following with them April 15. In the meantime we will continue with lifestyle she is doing better, feels like her clothes are fitting better. Patient follow with PCP closely for all primary care needs. # Depression: Following with therapy # Seizures: Takes Depakote 250 mg, has been seizure-free, levetiracetam 1000 mg, Follows with neurology. History of brain tumor with removal. # Difficulty sleeping: Takes hydroxyzine 25 mg # Depression: Take nortriptyline 25 mg 3 times daily # Hyperlipidemia: Takes atorvastatin 20 mg Time spent with patient 30 minutes with greater than 50% of patient patient care coronation Follow-up in 6-8 weeks, sooner as needed. All quetsions answered to patients satisfaction. Patient verbalized understanding of diagnosis and treatments explained. To call sooner prior to next visit it any questions/concerns arise. Case discussed with collaborating physician Radha Barragan who reviewed the assessment and plan. Chart, medications, labs, vital signs reviewed. Dictation was accomplished with the use of [employer] voice recognition software, prone to medical misidentifications and grammatical errors. This is unintentional and the practitioner does try to identify and correct these, but some could still be present. Please do not hesitate to contact practitioner for clarification. 04/11/2024 Prediabetes (ICD-10 - R73.03) #Obesity, Annalise is a pleasant 52-year-old female coming in today for weight loss follow up. Flat affect and slow speech as baseline folowing Brain Tumor removal 7 years ago. 09/12/23: Patient's weight has remained the same at 232 lbs since her last visit in 05/11. She states she is eating 2 meals daily with good protein intake, enjoys a variety of fruits and veggies and is walking to burn atleast 100-200 calories daily. She is only sleeping 3-4 hours nightly and has high stress levels dealing with her depression after her brain tumor removal. Patient is unsure of the metformin dose she is currently taking and expresses no interest in trying another weight loss medication at this time. She would like to restart Metformin 1000mg BID and lifestyle modifications for now. Patient's main goal is to lower her BMI to be able to have a breast reduction to help with back pain. Patient is unsure what her goal BMI is. Will check with PCP and report back to us so we can adjust her goals. Patient declined SECA score. 10/24/2023: Weight 227, BMI 38.96. Patient congratulated on successful weight loss. Has lost over 20 pounds since she started, taking metformin 1000 mg twice daily. Has been helping with appetite suppression. Goal BMI is 33 in order to qualify for the breast reduction per patient's primary care. Will start implementing more resistance training.Body scan reviewed, showing more muscle loss than fat loss. 12/20/2023: Weight 227.8, BMI 39.1. Patient congratulated on effort, doing really well with exercising lifting weights every other day, and doing cardio. Reviewing body scan she did gain 1 pound, but composition shows that she gained 2 pounds of muscle, and lost 5 pounds of fat. Patient also gained some water weight. Continue with metformin 1000 mg twice daily. Patient states she is feeling well on this regimen and is feeling better overall. 04/07/2024: Weight 225, BMI 38.69. Patient last seen in December. Minimal weight loss but when reviewing body scan, positive changes to composition, with muscle maintenance, a little bit of fat loss, some water loss. Hesitant to use GLP-1's secondary to delayed gastric emptying which can decrease efficacy of her seizure medications. She is potentially interested in these but stated that I will consider prescribing if there is a clearance note from neurology for which she is following with them April 15. In the meantime we will continue with lifestyle she is doing better, feels like her clothes are fitting better. Patient follow with PCP closely for all primary care needs. # Depression: Following with therapy # Seizures: Takes Depakote 250 mg, has been seizure-free, levetiracetam 1000 mg, Follows with neurology. History of brain tumor with removal. # Difficulty sleeping: Takes hydroxyzine 25 mg # Depression: Take nortriptyline 25 mg 3 times daily # Hyperlipidemia: Takes atorvastatin 20 mg Time spent with patient 30 minutes with greater than 50% of patient patient care coronation Follow-up in 6-8 weeks, sooner as needed. All quetsions answered to patients satisfaction. Patient verbalized understanding of diagnosis and treatments explained. To call sooner prior to next visit it any questions/concerns arise. Case discussed with collaborating physician Radha Barragan who reviewed the assessment and plan. Chart, medications, labs, vital signs reviewed. Dictation was accomplished with the use of [employer] voice recognition software, prone to medical misidentifications and grammatical errors. This is unintentional and the practitioner does try to identify and correct these, but some could still be present. Please do not hesitate to contact practitioner for clarification. Plan Of Treatment No Information Insurance Providers Payer Name Payer Address Payer Phone Subscriber Number Group Number Insured Name Patient Relationship to Insured Coverage Start Date Coverage End Date [employer] or Options [address] [place] [id number] Annalise Forde Self - patient is the insured Medications Administered Medication Instructions Date of Administration Dosage Notes [facility] B12 INJECTION 12/30/2022 Lot# [id number] Medical (General) History Medical History History ICD Code high cholesterol pre-DM cancer seizures headache anxiety depression hearing loss vision problems brain tumor- removed Surgical History Surgery Date(Month/Year) removal of brain tumor 06/03 Hospitalization History Reason Date(Month/Year) Seizures Brain tumor
--- OUTSIDE RECORDS SUMMARY | 2025-03-10 11:53 | XMS_ITS ---
Author Organization [facility] Address [address] [place] [address] [place] [address] Phone Care Team Providers Care Manager Staffing Name Role Phone Vilma Lentz MD, PhD Unavailable Riya Jay RN Unavailable [phone]- [phone] Fani Llamas MD Unavailable Carmen Soni MD Primary Care Provider [phone] Active Problems Patient Care Coordination No te Formatting of this note migh t be different from the original. Labs drawn by [facility], processed by [facility]: [phone] Fax for lab [facility]: [phone] We need to call [facility] for results, they will not fax automatically. 01/21/25: VNA referral sent to [facility] in [facility] (ph: [phone]; fax: [phone]) for SN & OT. Acceptance /SOC pending clinical review and insurance verification. -[facility] 01/21/25: . [facility] declined- they don't take insurance, also go a verbal no from [facility]- they don't cover the area, and [facility] VNA- they don't have availability. Will continue to search-[facility] 01/22/25: I submitted the VNA referral to [facility] in [place] ( ; fax: [phone]) They take her insurance and have availability [...] frontal lobe of brain 10/19/2015 Seizure 10/19/2015 Current Treatment and Therapy Plans VORASIDENIB* Plan Start Date:12/25/2024 Plan Provider:Vilma Lentz MD, PhD Linked Problems Oligodendroglioma Treatment Medications Current Day (Day 1, Cycle 3 - Planned for 03/25/2025) vorasidenib (VORANIGO) vorasidenib (VORANIGO) 40 mg tablet Past Treatment and Therapy Plans Oncology Therapy Plan Plan Name Start Date Discontinue Date Treatment Medications Discontinue Reason Plan Provider ACCESS AND FLUSH ([facility]) 06/07/2016 08/20/2022 No medications scheduled. a. Therapy Complete Ingrid Dixon NP TREATMENT PLAN-SUPPLEMENTAL Plan Name Start Date Discontinue Date Treatment Medications Discontinue Reason Plan Provider Cycles PCV - LOMUSTIN E/VINCRI KOLBY/MA OCARBAZI NE 6 09/17/2022 lomustine (GLEOSTINE)proc arbazine (MATULANE)vinCR IStine (VINCASAR PFS) IVPB {1 mg/mL vial} a. Therapy Complete Vilma Medina MD, PhD 6 of 6 cycles started Resolved Problems Problem Noted Date Diagnosed Date Resolved Date Lesion of brain 11/25/2015 11/25/2015
--- OUTSIDE RECORDS SUMMARY | 2025-03-10 11:53 | XMS_ITS | Encounter Summary ---
Author Organization [facility] Address [address] [place] [id number] Phone Care Team Providers Care Lens Block Gauger Name Role Phone Niurka Herlinda MCMAHAN Primary Care Provider [phone] Vilma Lentz MD, PhD Unavailable Riya Jay RN Unavailable [phone]- [phone] Fani Llamas MD Unavailable Carmen Soni MD Primary Care Provider [phone] Carmen Soni MD Primary Care Provider [phone] Encounter Details Date Type Department Care Team (Late st Contact Info) Description 11/26/2015 Procedure Pass [facility], [place] [address] [facility], [address]th [place] [address] Social History Tobacco Use Types Packs/Day Years [...] No 11/26/2015 11:15 AM aJz Arteaga CNP documented as of this encounter [...] [address] [place] [address] 03/17/2025 12:45 PM EDT Appointment MRI, [facility] General Imaging [address] [place] [address] Bhargav Naik MBBS [address] [place] [id number] [email or web address] 03/17/2025 1:30 PM EDT Blood Draw [facility] [address] [facility], 9th [address], [address] [place], [place] [phone] Annamaria Hutchinson FNP [address] [facility] [address]YAW 7 [place], [place] 03/17/2025 2:00 PM EDT Office Visit [facility] [address], 9th [address], [address] [place] [address] Vilma Lentz MD, PhD [address] [place] [address] [address] [place] [address] [email or web address] 04/16/2025 10:00 AM EDT Office Visit [facility] Department of Neurology [address] [facility], 8th Floor, [address] [place] [address] Seth Ross MD [address] [place] [id number] [email or web address] documented as of this encounter Visit Diagnoses Not on filedocumented in this encounter Care Teams Lens Block Gauger Relationship Specialty Start Date End Date Herlinda Bah DO [address] [place] [address] PCP - General 10/16/15 12/18/16 Carmen Soni MD [address] [place] [phone] PCP - General Internal Medicine 12/19/16 05/07/17 Carmen Soni MD [address] [place] [id number] PCP - General Internal Medicine 05/08/17 Vilma Lentz MD, PhD [address] [place] [address] [address] [place] [address] [email or web address] Primary Oncologist Neurology 04/07/16 Riya Jay RN [address] [place] [address] [email or web address] Primary Infusion Nurse 04/07/16 Fani Llamas MD [address] [place] [phone] [email or web address] Radiation Oncology 04/10/16 documented as of this encounter Additional Source Comments The information contained in this document represents components of the legal health record. It is not the complete legal health record[facility]
== END 2025-03-10 10:36 | disposition home or self-care (01) ==
LOC: HO.ENCR 09:46
PROVIDERS: PCP Internal Medicine; Visit Provider Dietitian, Registered
DX: E66.01 Morbid (severe) obesity due to excess calories (principal); Z68.41 Body mass index [BMI] 40.0-44.9, adult

== ENCOUNTER → 2025-03-10 09:45 | Outpatient (BNVA) | payer OTHER, SELFPAY | PROVIDERS: PCP Internal Medicine; Visit Provider Dietitian, Registered | DX: E66.01 Morbid (severe) obesity due to excess calories (principal); Z68.41 Body mass index [BMI] 40.0-44.9, adult | CPT/HCPCS: 97802 ==